=== PATIENT | male | born 1945 | race Caucasian/White ===

== ENCOUNTER → 2019-12-04 16:03 | Outpatient (BNVA) | payer MEDICARE, MEDICAID, SELFPAY | PROVIDERS: Visit Provider Nurse Practitioner | DX: E78.2 Mixed hyperlipidemia (principal); M19.90 Unspecified osteoarthritis, unspecified site; E03.9 Hypothyroidism, unspecified | CPT/HCPCS: 80053; 80061; 84443; 85025 ==

== ENCOUNTER → 2019-12-17 08:09 | Outpatient (BNVA) | payer MEDICARE, MEDICAID, SELFPAY | PROVIDERS: Visit Provider Nurse Practitioner | DX: E03.9 Hypothyroidism, unspecified (principal); R79.89 Other specified abnormal findings of blood chemistry | CPT/HCPCS: 84439; 84481 ==

== ENCOUNTER → 2020-01-31 10:14 | Outpatient (BNVA) | payer MEDICARE, MEDICAID, SELFPAY | PROVIDERS: PCP Nurse Practitioner; Visit Provider Nurse Practitioner | DX: E03.9 Hypothyroidism, unspecified (principal); E78.2 Mixed hyperlipidemia; J44.9 Chronic obstructive pulmonary disease, unspecified | CPT/HCPCS: 80053; 80061; 84439; 84443; 84481 ==

== ENCOUNTER 2020-03-10 14:44 | Outpatient (CLI) | payer MEDICARE, MEDICAID, SELFPAY ==
--- NOTE | 2020-03-10 15:45 | USCV_ITS ---
Matthew Chong Age: 74 Gender: M : 1945 Exam Date: 03/10/2020 15:08 Ordering Phys: Donnell Etienne MD Technologist: Boni Ramirez [place]am [place] [facility] [place]: SOB BP: 143 / 75 HR: 78 Rhythm: Sinus Technical Quality: Adequate MEASUREMENTS (Male / Female) Normal Values 2D ECHO LVOT Diameter 2.1 cm LV Ejection Fraction MOD 2C 57.7 % LV Ejection Fraction 2C AL 60.1 % LA Diameter 3.9 cm LA Width 4.8 cm LA Height 4.4 cm RA Width 3.9 cm RA Height 4.4 cm M-MODE LV Diastolic Diameter MM 4.5 cm 4.2 - 5.9 / 3.9 - 5.3 cm LV Systolic Diameter MM 2.2 cm LV Ejection Fraction MM Teich 82.1 % IVS Diastolic Thickness MM 1.2 cm 0.6 - 1.0 / 0.6 - 0.9 cm IVS Systolic Thickness MM 1.8 cm LVPW Diastolic Thickness MM 1.3 cm 0.6 - 1.0 / 0.6 - 0.9 cm LVPW Systolic Thickness MM 1.8 cm RV Diastolic Diameter MM 1.8 cm Aortic Annulus Diameter 4.3 cm LA Ao Ratio MM 0.9 MV E Point Septal Separation 1.2 cm DOPPLER AV Peak Velocity 126.3 cm/s LVOT Peak Velocity 101.0 cm/s AV Area Cont Eq vti 2.7 cm squared AV Area Cont Eq pk 2.7 cm squared MV Area PHT 5.0 cm squared Mitral E to A Ratio 0.9 MV E' Velocity 49.0 cm/s Mitral E to MV E' Ratio 7.1 Mitral E to LV E' Lateral Ratio 6.9 Mitral E to LV E' Septal Ratio 7.3 TR Peak Velocity 174.3 cm/s TR Peak Gradient 12.2 mmHg TV Peak E Velocity 85.0 cm/s Right Atrial Pressure 3.0 mmHg Pulmonary Artery Systolic Pressu 15.2 mmHg FINDINGS Left Ventricle Normal left ventricular cavity size. Normal left ventricular systolic function. No regional wall motion abnormalities. Left ventricular ejection fraction is estimated at 65 %. Grade I/IV diastolic dysfunction (abnormal relaxation filling pattern), normal to mildly elevated filling pressures. Right Ventricle The right ventricle is normal in size and function. Right Atrium The right atrium is normal in size. Left Atrium The left atrium is normal in size. Mitral Valve Moderately thickened mitral valve. Mild mitral annular calcification. No mitral valve stenosis. Trace mitral valve regurgitation. Aortic Valve Moderate aortic valve calcification. No aortic valve stenosis. Trace aortic valve regurgitation. Tricuspid Valve Structurally normal tricuspid valve without significant stenosis or regurgitation. Pulmonary artery systolic pressure is normal. Pulmonic Valve Structurally normal pulmonic valve without significant stenosis. There is no pulmonic regurgitation. Pericardium Normal pericardium without effusion. Aorta Normal ascending aorta dimension. CONCLUSIONS 1-Normal left ventricular cavity size. Normal left ventricular systolic function. No regional wall motion abnormalities. Left ventricular ejection fraction is estimated at 65 %. Grade I/IV diastolic dysfunction (abnormal relaxation filling pattern), normal to mildly elevated filling pressures. 2-Moderately thickened mitral valve. Mild mitral annular calcification. No mitral valve stenosis. Trace mitral valve regurgitation. 3-Moderate aortic valve calcification. No aortic valve stenosis. Trace aortic valve regurgitation. 4-There is no pericardial effusion. 5-Pulmonary artery systolic pressure is within normal limits. 6-Right atrial pressure is around 5 mm of mercury. 7-There are no prior echocardiogram studies to compare. Fernando Grissom MD (Electronically Signed) Final Date: 10 March 2020 18:46 S
== END 2020-03-10 14:45 | disposition home or self-care (01) ==
PROVIDERS: PCP Nurse Practitioner; Visit Provider Internal Medicine Pulmonary Disease
DX: R06.02 Shortness of breath; I08.0 Rheumatic disorders of both mitral and aortic valves
CPT/HCPCS: 93306

== ENCOUNTER 2020-03-18 08:57 | Outpatient (CLI) | payer MEDICARE, MEDICAID, SELFPAY ==
--- NOTE | 2020-03-18 09:03 | CT_ITS ---
WS: [id number] LDCT LUNG CANCER SCREENING HISTORY: NICOTINE DEPENDENCE, CIGARETTES TECHNIQUE: Axial imaging performed from the apices to 1 cm below the costophrenic angles. Coronal and sagittal reformats are submitted with axial MIP series. All CT scans at [facility] use at least one of these dose optimization techniques: automated exposure control; mA and/or kV adjustment per patient size (includes targeted exams where dose is matched to clinical indication); or iterativ e reconstruction. DLP: 58.94 mGy.cm DIvol: 1.58 mGy COMPARISON: None available. Diagnostic quality: Satisfactory Lung Nodules: No pulmonary nodules or endobronchial lesions. Lungs: Chronic centrilobular and paraseptal emphysema. No pneumonia. Heart: Normal size with no effusion. Other findings: Mild atherosclerosis thoracic aorta. Normal size pulmonary artery. Scattered calcific ations in the coronary arteries. Small hiatal hernia. CT/CT lung screening [id number] IMPRESSION: LUNG-RADS: 1-Negative FOLLOW UP: 12 Month: Continue annual screening with LDCT OTHER FINDINGS (S MODIFIER): None.
== END 2020-03-18 08:58 | disposition home or self-care (01) ==
LOC: RAD 08:58
PROVIDERS: PCP Nurse Practitioner; Visit Provider Internal Medicine Pulmonary Disease
DX: Z12.2 Encounter for screening for malignant neoplasm of respiratory organs (principal); F17.210 Nicotine dependence, cigarettes, uncomplicated
CPT/HCPCS: G0297

== ENCOUNTER 2020-03-31 08:57 | Outpatient (CLI) | payer MEDICARE, MEDICAID, SELFPAY ==
--- NOTE | 2020-03-31 10:42 | PFTS_ITS ---
Date of Study:03/31/20 Date of Dictation: MECHANICS: Forced vital capacity (FVC) is normal. Forced expiratory volume in one second (FEV1) is reduced. FEV1/FVC is reduced. FLOW VOLUME LOOP: Reduced flow at all lung volumes with scooping. LUNG VOLUMES: Total lung capacity (TLC) is normal. Residual volume (RV) is decreased. DIFFUSING CAPACITY FOR CARBON MONOXIDE: Mild reduced. INTERPRETATION: Prebronchodilator spirometry is consistent with moderate obstruction. No postbronchodilator spirometry was performed. Lung volumes are consistent with air trapping. Gas exchange (DLCO) is mildly reduced. MTDD
== END 2020-03-31 08:58 | disposition home or self-care (01) ==
LOC: RT 08:58
PROVIDERS: PCP Nurse Practitioner; Visit Provider Internal Medicine Pulmonary Disease
DX: J44.9 Chronic obstructive pulmonary disease, unspecified (principal); R22.43 Localized swelling, mass and lump, lower limb, bilateral
CPT/HCPCS: 94010; 94618; 94726; 94729

== ENCOUNTER → 2020-05-06 10:32 | Outpatient (BNVA) | payer MEDICARE, MEDICAID, SELFPAY | PROVIDERS: PCP Nurse Practitioner; Visit Provider Nurse Practitioner | DX: I10 Essential (primary) hypertension (principal); J44.9 Chronic obstructive pulmonary disease, unspecified; E03.9 Hypothyroidism, unspecified; E78.2 Mixed hyperlipidemia; I71.4 Abdominal aortic aneurysm, without rupture; M19.90 Unspecified osteoarthritis, unspecified site; N18.9 Chronic kidney disease, unspecified | CPT/HCPCS: 80053; 84443; 85025 ==

== ENCOUNTER 2020-05-12 10:25 | Outpatient (CLI) | payer MEDICARE, MEDICAID, SELFPAY ==
--- NOTE | 2020-05-12 10:38 | XRR_ITS ---
PROCEDURE INFORMATION: Exam: XR Chest, 2 Views Exam date and time: 05/12/2020 10:38 AM Age: 74 years old Clinical indication: Condition or disease; Lung condition and disease; Pneumonia; Additional info: Rule out pneumonia TECHNIQUE: Imaging protocol: XR of the chest Views: 2 views. COMPARISON: CT lung screening [id number] 03/18/2020 9:05 AM FINDINGS: Lungs: Emphysema Lungs are well aerated without a focal area of consolidation. Pleural space: Blunting of the right costophrenic angle. Heart/Mediastinum: Unremarkable. No cardiomegaly. Bones/joints: Unremarkable. XR/XR chest 2V* [id number] IMPRESSION: Lungs are well aerated without a focal area of consolidation.
== END 2020-05-12 10:26 | disposition home or self-care (01) ==
PROVIDERS: PCP Nurse Practitioner; Visit Provider Internal Medicine Pulmonary Disease
DX: J44.9 Chronic obstructive pulmonary disease, unspecified (principal); F17.200 Nicotine dependence, unspecified, uncomplicated; J06.9 Acute upper respiratory infection, unspecified
CPT/HCPCS: 71046

== ENCOUNTER 2020-05-21 08:13 | Outpatient (CLI) | payer MEDICARE, MEDICAID, SELFPAY ==
--- NOTE | 2020-05-21 08:45 | USCV_ITS ---
Matthew Chong Age: 74 Gender: M : 1945 Exam Date: 05/21/2020 08:32 Ordering Phys: Carlos Brito Technologist: Boni Ramirez [place]am [place] [facility] [place]ication: HX AO STENT HISTORY: Diameter (cm) AP x Transverse x Length Velocity (cm/s) Waveform Prox Aorta: x x Mid Aorta: x x Distal Aorta: x x Right Iliac Prox: x x Left Iliac Prox: x x Stent Prox Landing 2.50 x 2.44 x 46.50 Aneurysmal Sac Max 1.37 x 1.49 x 47.30 Lt Lat Sac Dim 1.31 Rt Lat Sac Dim 0.91 Stent Dist Landing 1.71 1.48 x 77.20 x Right Iliac Stent 1.49 x 1.33 x 49.00 Left Iliac Stent 52.30 1.51 x 1.44 x Right Renal Art 105.40 Left Renal Art 85.80 FINDINGS: NORMAL AO STENT Aneurysmal sac measured 4.59 x 4.1 cm The aorta at the proximal stent landing measured 2.5 x 2.44 cm and 1.71 x 1.48 at the distal landing The right iliac stent measured 1.49 x 1.33 and the left 1.51 x 1.44 cm Patent aortic stent graft with no evidence of any flow signal seen in the aneurysm sac Normal Doppler flow velocities in the aorta and renal arteries. CONCLUSIONS 1. Patent aortio-iliac stent graft with no evidence of endoleak, based on the color flow Doppler examination 2. Normal Doppler flow velocities with no evidence of stenosis 3. No significant stenosis in the renal arteries, based on the flow velocities No similar previous studies are available for comparison Dr Joyce Canas MD [facility] (Electronically Signed) Final Date: 21 May 2020 16:16 S
== END 2020-05-21 08:14 | disposition home or self-care (01) ==
LOC: US 08:14
PROVIDERS: PCP Nurse Practitioner; Visit Provider Nurse Practitioner
DX: I71.4 Abdominal aortic aneurysm, without rupture (principal); Z95.828 Presence of other vascular implants and grafts
CPT/HCPCS: 93978

== ENCOUNTER → 2020-07-09 15:03 | Outpatient (BNVA) | payer MEDICARE, MEDICAID, SELFPAY | PROVIDERS: PCP Nurse Practitioner; Visit Provider Nurse Practitioner | DX: N18.9 Chronic kidney disease, unspecified (principal); M19.90 Unspecified osteoarthritis, unspecified site; J44.9 Chronic obstructive pulmonary disease, unspecified; I10 Essential (primary) hypertension; Z79.899 Other long term (current) drug therapy | CPT/HCPCS: 80053; 82306; 82310; 83970; 84443; 85025 ==

== ENCOUNTER 2020-07-30 06:00 | Outpatient (RCR) | payer MEDICARE, MEDICAID, SELFPAY | END 2020-08-21 23:59 | disposition home or self-care (01) | LOC: TPT 06:00 | PROVIDERS: PCP Nurse Practitioner; Referring Provider Internal Medicine Pulmonary Disease; Visit Provider Internal Medicine Pulmonary Disease | DX: J44.9 Chronic obstructive pulmonary disease, unspecified (principal) | CPT/HCPCS: 97110; 97161 ==

== ENCOUNTER → 2020-08-13 13:47 | Outpatient (BNVA) | payer MEDICARE, MEDICAID, SELFPAY | PROVIDERS: PCP Nurse Practitioner; Visit Provider Nurse Practitioner | DX: M25.561 Pain in right knee (principal); M25.562 Pain in left knee; G89.29 Other chronic pain | CPT/HCPCS: 73562 ==

== ENCOUNTER 2020-08-22 06:00 | Outpatient (RCR) | payer MEDICARE, MEDICAID, SELFPAY | END 2020-09-21 23:59 | disposition home or self-care (01) | LOC: TPT 06:00 | PROVIDERS: PCP Nurse Practitioner; Referring Provider Internal Medicine Pulmonary Disease; Visit Provider Internal Medicine Pulmonary Disease | DX: J44.9 Chronic obstructive pulmonary disease, unspecified (principal) | CPT/HCPCS: 97110; 97164 ==

== ENCOUNTER → 2020-08-26 15:15 | Outpatient (BNVA) | payer MEDICARE, MEDICAID, SELFPAY | PROVIDERS: PCP Nurse Practitioner; Visit Provider Internal Medicine Cardiovascular Disease | DX: R06.02 Shortness of breath (principal); I71.4 Abdominal aortic aneurysm, without rupture; R22.43 Localized swelling, mass and lump, lower limb, bilateral; I50.33 Acute on chronic diastolic (congestive) heart failure; I10 Essential (primary) hypertension; Z98.890 Other specified postprocedural states; Z86.79 Personal history of other diseases of the circulatory system; R60.0 Localized edema; E78.2 Mixed hyperlipidemia; N18.4 Chronic kidney disease, stage 4 (severe) | CPT/HCPCS: 80048; 83880 ==

== ENCOUNTER → 2020-09-10 15:08 | Outpatient (BNVA) | payer MEDICARE, MEDICAID, SELFPAY | PROVIDERS: PCP Nurse Practitioner; Visit Provider Nurse Practitioner | DX: M25.561 Pain in right knee (principal); M25.562 Pain in left knee; G89.29 Other chronic pain; E03.9 Hypothyroidism, unspecified; I10 Essential (primary) hypertension; J44.9 Chronic obstructive pulmonary disease, unspecified; R22.43 Localized swelling, mass and lump, lower limb, bilateral; E78.2 Mixed hyperlipidemia | CPT/HCPCS: 80048; 83880 ==

== ENCOUNTER 2020-09-22 06:00 | Outpatient (RCR) | payer MEDICARE, MEDICAID, SELFPAY | END 2020-10-21 23:59 | disposition home or self-care (01) | LOC: TPT 06:00 | PROVIDERS: PCP Nurse Practitioner; Referring Provider Internal Medicine Pulmonary Disease; Visit Provider Internal Medicine Pulmonary Disease | DX: J44.9 Chronic obstructive pulmonary disease, unspecified (principal) | CPT/HCPCS: 97110; 97164 ==

== ENCOUNTER → 2020-09-23 10:01 | Outpatient (BNVA) | payer MEDICARE, MEDICAID, SELFPAY | PROVIDERS: PCP Nurse Practitioner; Visit Provider Obstetrics & Gynecology Gynecology | DX: E78.2 Mixed hyperlipidemia (principal); N18.4 Chronic kidney disease, stage 4 (severe); I10 Essential (primary) hypertension; R22.43 Localized swelling, mass and lump, lower limb, bilateral | CPT/HCPCS: 80048; 83880 ==

== ENCOUNTER 2020-10-12 07:00 | Outpatient (CLI) | payer MEDICARE, MEDICAID, SELFPAY ==
[2020-10-12 07:12] VITALS: BMI 32.1
--- NOTE | 2020-10-12 07:32 | NMCV_ITS ---
NM vanessa perf SPECT r/s* [id number] Matthew Chong Age: 74 Gender: M : 1945 Exam Date: 10/12/2020 08:31 Ordering Phys: Joyce Canas MD ([email or web address]) Technologist: CAMERON Yun Exam Location: [facility] Indications: SHORTNESS OF BREATH STRESS TEST Please see separate stress test report in [facility] for full findings IMAGE PROTOCOL Rest/Stress 1 Lexiscan Day Radiopharmaceutical Dose (mCi) Administration Site Administered by Rest: Tc-99m 10.8 IV CAMERON Abdullahi Sestamibi Stress:Tc-99m 32.3 IV CAMERON Abdullahi Sestamibi Rest: 12-Oct-2020 60 Discovery 630 Stress: 12-Oct-2020 30 Discovery 630 0.4mg Lexiscan. Images obtained in supine and prone position. SPECT RESULTS Technical Quality: Excellent Raw Data Analysis: Normal Image Corrections: No attenuation or motion correction applied Summed Stress Score: 0 Summed Rest Score: 0 Summed Difference Score: 0 PERFUSION FINDINGS Fairly uniform myocardial tracer uptake with no significant perfusion abnormalities FUNCTIONAL RESULTS (calculated via Gated SPECT) Stress Image LV EF (%): 65 Stress EDV (mL):97 TID: 1.2 Stress ESV (mL):34 FUNCTIONAL FINDINGS: Segmental wall motion analysis revealing no gross wall motion normalities. IMPRESSIONS 1. Unremarkable myocardial perfusion imaging 2. LV wall motion analysis revealing no gross wall motion normalities. 3. Normal LV ejection fraction of 65%. 4. Normal LV volume. 5. Elevated transischemic dilatation ratio may suggest endocardial ischemia. But in the absence of any other abnormal objective findings, most likely this is a nonspecific finding. Clinical correlation is recommended Dr Joyce Canas MD [facility] (Electronically Signed) Final Date: 12 October 2020 14:12 S
--- NOTE | 2020-10-12 07:32 | ECG_ITS ---
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 Interpretive Statements NAME OF STUDY: LEXISCAN SESTAMIBI STRESS TEST INDICATION: Shortness of Breath, PROCEDURE: At the baseline, the EKG revealed normal sinus rhythm with a normal ST-T's. The baseline blood pressure was 153/81 mm Hg with a heart rate of 63 beats/min. Lexiscan was infused over a period of 20 seconds. A total of 0.4 milligrams of Lexiscan was infused. The stress phase was continued for a total of 5 minutes. Heart rate at the end of the stress phase was 80 with a blood pressure 151/72. The EKG at the peak infusion revealed no significant changes occasional PACs were noted during the stress. Sestamibi was injected 20 seconds after the Lexiscan infusion. Blood pressure at the end of the recovery phase was 155/77 with a heart rate of 82 per minute. CONCLUSION: 1. No significant EKG changes with the LexiScan infusion 2. No LexiScan induced chest pain or cardiac arrhythmia 3. Normal blood pressure and heart rate response 4. Sestamibi/sestamibi perfusion scan pending; see separate report. Electronically Signed On 10-16-2020 9:58:52 CDT by Joyce Canas M.D. [id number]
[2020-10-12] MEDS: regadenoson 0.4 Mg/5 ml Syringe IVP (09:06)
[2020-10-12 09:10] VITALS: BP 155/77; PULSE 80
== END 2020-10-12 07:01 | disposition home or self-care (01) ==
LOC: CDL 07:01
PROVIDERS: PCP Nurse Practitioner; Visit Provider Internal Medicine Cardiovascular Disease
DX: R06.02 Shortness of breath (principal)
CPT/HCPCS: 78452; 93017; A9500; J2785

== ENCOUNTER → 2020-10-15 13:52 | Outpatient (BNVA) | payer MEDICARE, MEDICAID, SELFPAY | PROVIDERS: PCP Nurse Practitioner; Visit Provider Nurse Practitioner | DX: E78.2 Mixed hyperlipidemia (principal); E03.9 Hypothyroidism, unspecified; J44.9 Chronic obstructive pulmonary disease, unspecified; E55.9 Vitamin D deficiency, unspecified; I10 Essential (primary) hypertension; M19.90 Unspecified osteoarthritis, unspecified site | CPT/HCPCS: 84443 ==

== ENCOUNTER 2020-10-22 06:00 | Outpatient (CLI) | payer MEDICARE, MEDICAID, SELFPAY | END 2020-10-22 06:01 | disposition home or self-care (01) | LOC: LAB 04-14 15:47 | PROVIDERS: PCP Nurse Practitioner; Referring Provider Internal Medicine Pulmonary Disease; Visit Provider Nurse Practitioner | DX: R63.4 Abnormal weight loss (principal) | CPT/HCPCS: 80048 ==

== ENCOUNTER 2020-11-03 12:50 | Outpatient (CLI) | payer MEDICARE, MEDICAID, SELFPAY ==
[2020-11-03] MEDS: iohexol 300 mg/mL 50 mL Btl PO (14:05)
--- NOTE | 2020-11-03 14:30 | CT_ITS ---
WS: [id number] CT CHEST, ABDOMEN AND PELVIS WITHOUT CONTRAST. HISTORY: R63.4 - Abnormal weight loss TECHNIQUE: Contiguous 5 mm axial imaging performed through the chest, abdomen and pelvis without IV c ontrast, oral contrast has been provided. Coronal and sagittal reformats chest. Coronal and sagittal reformats through the abdomen and pelvis. All CT scans at [facility] use at least one of these dose optimization techniques: automated exposure control; mA and/or kV adjustment per patient s ize (includes targeted exams where dose is matched to clinical indication); or iterative reconstructi on. CONTRAST: None DLP: 2318.87 mGy-cm. COMPARISON: None available. Chest CT: Severe centrilobular and paraseptal emphysema. No pulmonary mass or nodule is identified. T here is a new small RIGHT pleural effusion layering posteriorly. New since 03/18/2020 with compressiv e atelectasis. Small mediastinal and hilar lymph nodes. No pericardial effusion. Abdomen CT: Liver, spleen and gallbladder and pancreas are negative. No adrenal mass. Mild RIGHT hydr oureter ureteronephrosis. Mid to distal RIGHT ureter becomes obscured near the pelvic brim secondary to aneurysmal dilatation and stenting of the common iliac artery. No obstruction of the LEFT kidney. Aorta: Patient is status post endovascular stent grafting of a large abdominal aortic aneurysm. Bilat eral iliac artery stents are also present. There is a focal outpouching of the anterior LEFT lateral aorta with no adjacent calcification. No rupture. There is increased soft tissue extending along the RIGHT common iliac and external iliac arteries. 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 No prior studies for comparison to see if this is been stable or change. No GI tract obstruction. No adenopathy or ascites identified. Pelvic CT: No free fluid. Urinary bladder minimally distended. Prostate gland is enlarged. No destructive bone lesions are identified. Mild degenerative changes throughout the thoracic and lum bar spines. CT/CT chest abd pel wo con IMPRESSION: 1. Severe emphysema. 2. New since 03/18/2020 is a small layering RIGHT pleural effusion. No pneumon ia. 3. Prior stent grafting of the abdominal aortic aneurysm with extension of the stent graft into the iliac arteries. 4. 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 No prior studies for comparison to evaluate for any interval change. 5. There is dilatation and increased soft tissue extending along the RIGHT bertram ac artery. Prior rupture or impending rupture of an aneurysm is not excluded. N o prior studies for comparison. These findings may all be stable over alf or new. Recommend follow-up with vascular surgeon. 6. Moderate obstruction of the RIGHT mid ureter at the level of the iliac luis daniel ry stent grafting and increased soft tissue. RIGHT ureter is probably being obs tructed by fibrosis and the increased soft tissue associated with the RIGHT bertram ac artery stent and aneurysm. 7. Evaluation of the aorta and iliac arteries and cause of the RIGHT ureteral obstruction are recommended. Follow-up with vascular surgeon. Evaluation of the RIGHT ureter in comparison to the iliac artery stent graft also needs to be pe rformed. Notified ADAN Newton at 11/03/2020 3:03 PM. Message left on the an [employer] service at 3:06 PM.
== END 2020-11-03 12:51 | disposition home or self-care (01) ==
PROVIDERS: PCP Nurse Practitioner; Visit Provider Nurse Practitioner
DX: R63.4 Abnormal weight loss (principal); J43.9 Emphysema, unspecified; J90 Pleural effusion, not elsewhere classified; I71.4 Abdominal aortic aneurysm, without rupture; N13.5 Crossing vessel and stricture of ureter without hydronephrosis
CPT/HCPCS: 71250; 74176; Q9967

== ENCOUNTER → 2020-11-05 09:15 | Outpatient (BNVA) | payer MEDICARE, MEDICAID, SELFPAY | PROVIDERS: PCP Nurse Practitioner; Visit Provider Registered Nurse | DX: N18.4 Chronic kidney disease, stage 4 (severe) (principal); R80.8 Other proteinuria; R80.0 Isolated proteinuria; I10 Essential (primary) hypertension; Z79.899 Other long term (current) drug therapy | CPT/HCPCS: 80069; 82043; 82310; 82570; 83516; 83883; 83970; 84155; 84156; 84165; 85025 ==

== ENCOUNTER 2020-11-11 15:43 | Emergency (ER) | payer MEDICARE, MEDICAID, SELFPAY ==
[2020-11-11 16:00] VITALS: BP 169/99; PULSE 99; RESP 19; TEMP 37.5; O2SAT 94; BMI 28.8
--- NOTE | 2020-11-11 17:22 | XRR_ITS ---
PROCEDURE INFORMATION: Exam: XR Right Hip Exam date and time: 11/11/2020 5:22 PM Age: 74 years old Clinical indication: Hip pain; Right hip; Prior surgery; Surgery type: Aortic stents; Patient HX: Right groin pain; Additional info: Hip pain, include pelvis TECHNIQUE: Imaging protocol: XR Right hip. Views: 1 view hip with pelvis when performed. COMPARISON: CT chest abd pel wo con 11/03/2020 2:40 PM FINDINGS: Tubes, catheters and devices: Aorto bi-iliac stent graft noted. Bones/joints: Moderate degenerative narrowing and small marginal osteophyte formation at both femoroacetabular joints. No evidence of fracture. DJD of the lower thoracic spine noted. Soft tissues: Unremarkable. XR/XR hip RT 2-3V wo/w pel* [id number] IMPRESSION: No acute osseous abnormalities of the right hip. Moderate DJD of the right hip.
--- NOTE | 2020-11-11 19:36 | W.ED.EXTPRO ---
HPI - Extremity Problem General: Chief complaint: Extremity Problem,Nontraumatic Stated complaint: R. Side Groin/Thigh Sharp Pains Time Seen by Provider: 11/11/20 19:36 History of Present Illness: HPI Narrative: 74-year-old male comes in with right thigh pain. Patient reports pain on and off for the last 2 weeks. Patient has a history of chronic kidney disease and a aortic aneurysm. Patient reports that at times he has numbness in that same area of the leg. Patient appears well. Patient appears chronically ill. Patient appears nontoxic. Patient appears in mild to no pain. Review of Systems General: Reports: 10 or more systems reviewed and unremarkable except in HPI and below Musc: Reports: other (Right thigh pain) PFS ED PFSH: Medical History AAA (abdominal aortic aneurysm) Adult hypothyroidism CKD (chronic kidney disease) COPD (chronic obstructive pulmonary disease) DJD (degenerative joint disease) Hypertension Mixed hyperlipidemia Personal history of nicotine dependence Vitamin D deficiency Surgical History History of appendectomy History of cataract surgery Both eyes History of colonoscopy 2012 History of endovascular stent graft for abdominal aortic aneurysm (AAA) July 2017 Family History Mother Stroke Grandmother Stroke Father Hypertension Other CAD (coronary artery disease) Dementia Diabetes Denies family history of Family history of premature coronary artery disease Social History Smoking and tobacco status: former smoker Quit status (tobacco): has quit using tobacco Year quit tobacco: Apr [id number] Second hand smoke exposure: Yes Smoking risk assessment/counseling performed?: Yes Alcohol intake: never Desire information about alcohol rehabilitation?: No Counseling given: No Desire information about substance/drug rehabilitation?: No Counseling given: No Adopted: No Caregiver/support person: No Lives independently: Yes Household members: spouse Housing: House Marital status: Number of children: 6 service: Yes branch: [employer] Current occupational status: retired Pets and animals: Yes History of recent travel: No Current gender identity: Male Physical Exam Const: COMMON NORMALS: no acute distress and patient oriented x3 GENERAL APPEARANCE: cooperative HENMT: COMMON NORMALS: normocephalic and Normal external nose present HEAD & SCALP: normal to inspection and normocephalic NOSE: Normal external nose present MOUTH: Normal oral and palatal mucosa present THROAT: posterior oropharynx normal Eye: GENERAL EYE: appearance normal, both eyes and all related structures Neck/C-Spine: COMMON NORMALS: full ROM Chest: COMMONS NORMALS: normal inspection of the chest Resp: COMMON NORMALS: normal respiratory effort EFFORT & INSPECTION: Yes able to speak in complete sentences Cardio: COMMON NORMALS: regular rate and regular rhythm RATE: regular rate RHYTHM: regular rhythm GI: COMMON NORMALS: non-tender Back/Pelvis: COMMON NORMALS: thoracic and lumbar spine normal to inspection Extremity: COMMON NORMALS: normal to inspection NARRATIVE EXTREMITY EXAM: Bilateral lower extremity swelling, worse is on the right. Neuro: COMMON NORMALS: patient oriented x3 and moves all extremities Psych: COMMON NORMALS: mental status grossly normal and cooperative Skin: COMMON NORMALS: no rashes or lesions noted GENERAL SKIN EXAM: no rashes or lesions noted Course Vital Signs: Vital signs: Vital Signs Temperature 99.5 F 11/11/20 16:00 Pulse Rate 92 11/11/20 19:38 Respiratory Rate 17 11/11/20 19:38 Blood Pressure 169/99 11/11/20 16:00 Pulse Oximetry 95 11/11/20 19:38 MDM - Extremity (Nontraumatic) MDM Narrative: Medical decision making narrative: Patient comes in today with complaints of right thigh pain. Patient reports pain waxes and wanes. Patient reports pain is been worse for the last 2 weeks. Patient denies any falls or injury. Patient does have chronic edema to lower extremities bilaterally. Differential diagnosis includes degenerative joint disease of the hip, strain or sprain, DVT. X-ray noted some degenerative joint disease of the hip. Ultrasound of the extremity indicated no DVT. I believe that this is probably more musculoskeletal type pain recommended patient try to stay as active as he can and follow-up with primary care for further instruction and evaluation. Patient reported understanding and agreed to plan. Discharge Plan Discharge Patient Disposition: Home Clinical Impression: Leg pain, right DJD (degenerative joint disease) Qualifiers: Osteoarthritis location: hip Osteoarthritis type: unspecified Laterality: right Qualified Code(s): M16.11 - Unilateral primary osteoarthritis, right hip Condition: Stable Prescriptions: No Action aspirin 81 mg tablet,delayed release (DR/EC) 81 mg PO DAILY RF: 0 albuterol sulfate [ProAir HFA] 90 mcg/actuation HFA aerosol inhaler 2 puff INHALATION QID PRN (Reason: shortness of breath or wheezing) Qty: 18 RF: 2 Praluent Pen 75 mg/mL pen injector 75 mg SUBCUT Q14D Qty: 2 RF: 5 ergocalciferol (vitamin D2) 1,250 mcg (50,000 unit) capsule 1,250 mcg PO .weekly Qty: 4 RF: 2 potassium chloride 20 mEq tablet extended release 20 meq PO DAILY Qty: 90 RF: 1 thyroid (pork) [[place] Thyroid] 120 mg tablet 120 mg PO DAILY Qty: 90 RF: 0 thyroid (pork) [[place] Thyroid] 15 mg tablet 15 mg PO DAILY Qty: 90 RF: 0 tramadol 50 mg tablet 50 mg PO Q6H PRN (Reason: pain) Qty: 120 RF: 2 docusate sodium [Colace] 100 mg capsule 100 mg PO DAILY Qty: 30 RF: 2 Trelegy Ellipta 100-62.5-25 mcg blister with device 1 inh inhalation DAILY Qty: 60 RF: 3 torsemide 20 mg tablet 40 mg PO BID Qty: 120 RF: 5 hydralazine 100 mg tablet 100 mg PO TID 30 Days Qty: 270 RF: 2 atorvastatin 80 mg tablet 80 mg PO DAILY Qty: 90 RF: 0 Discharge Orders: Discharge ED (Routine); Ordered 11/11/20 Ordered By: Lex Rahman Referrals: Carlos Brito, SPECTROGRAPHIC ANALYST-C [Primary Care Provider] - Discharge Diet: Usual diet Discharge Activity: Increase activity as tolerated Patient Instructions: Pain Management in the Elderly (ED), Opioid Safety Activity Restrictions/Additional Instructions: Activity as tolerated. Try to maintain normal activity as much as possible. Take your medications as prescribed. Make sure you take your blood pressure medicine as prescribed. Follow-up with primary care for further treatment. Return to the emergency department for new concerns. Coding Level of Care Code ED Bath Solution Maker for Dylan Fwyadi Exam Comprehensive
[2020-11-11 19:38] VITALS: PULSE 92; RESP 17; O2SAT 95
--- NOTE | 2020-11-11 19:43 | USR_ITS ---
PROCEDURE INFORMATION: Exam: US Duplex Right Lower Extremity Veins, Limited Exam date and time: 11/11/2020 7:43 PM Age: 74 years old Clinical indication: Pain; Leg, lower; Right; Additional info: Leg swelling, thigh pain TECHNIQUE: Imaging protocol: Real-time Duplex ultrasound of the Right Lower Extremity with 2-D pepe scale, color Doppler flow and spectral waveform analysis with image documentation. Limited exam was focused on the right lower extremity veins. COMPARISON: CT chest abd pel wo con 11/03/2020 2:40 PM FINDINGS: Right deep veins: Unremarkable. The common femoral, femoral, proximal profunda femoral and popliteal veins are patent without thrombus. Normal Doppler waveforms. Normal compressibility and/or augmentation response. Right superficial veins: Unremarkable. Saphenofemoral junction is patent without thrombus. Soft tissues: Unremarkable. US/[place] [id number] IMPRESSION: No evidence of deep vein thrombosis.
[2020-11-11 21:12] VITALS: PULSE 110; RESP 18; O2SAT 94
== END 2020-11-11 21:10 | disposition home or self-care (01) ==
PROVIDERS: Emergency Provider Nurse Practitioner Family; PCP Nurse Practitioner
DX: M16.11 Unilateral primary osteoarthritis, right hip (principal); E03.9 Hypothyroidism, unspecified; I12.9 Hypertensive chronic kidney disease with stage 1 through stage 4 chronic kidney disease, or unspecified chronic kidney disease; N28.9 Disorder of kidney and ureter, unspecified; J44.9 Chronic obstructive pulmonary disease, unspecified; E78.2 Mixed hyperlipidemia; Z87.891 Personal history of nicotine dependence
CPT/HCPCS: 73502; 93971; 99282

== ENCOUNTER → 2020-11-26 13:59 | Outpatient (BNVA) | payer MEDICARE, MEDICAID, SELFPAY | PROVIDERS: PCP Nurse Practitioner; Visit Provider Internal Medicine Nephrology | DX: N18.4 Chronic kidney disease, stage 4 (severe) (principal) | CPT/HCPCS: 80069; 82043; 82310; 83970; 85025 ==

== ENCOUNTER 2020-11-27 07:17 | Outpatient (CLI) | payer MEDICARE, MEDICAID, SELFPAY ==
--- NOTE | 2020-11-27 07:30 | XRR_ITS ---
PROCEDURE INFORMATION: Exam: XR Abdomen Exam date and time: 11/27/2020 7:30 AM Age: 74 years old Clinical indication: Condition or disease; Kidney or ureter condition; Calculus (stone) in ureter; Prior surgery; Surgery type: Stent; Additional info: Obstruction of right ureter TECHNIQUE: Imaging protocol: XR of the abdomen. Views: Frontal supine view of the abdomen. 1 View. COMPARISON: CT chest abd pel wo con 11/03/2020 2:40 PM FINDINGS: Gastrointestinal tract: Normal. No bowel dilation. Vasculature: Sequela of an aorto bi-iliac stent. Bones/joints: Visualized osseous structures are intact. Moderate multilevel DJD of the lumbar spine. Other findings: No radiographic findings of nephrolithiasis. XR/XR KUB [id number] IMPRESSION: 1. No acute findings. 2. No radiographic evidence of nephrolithiasis. 3. Redemonstrated aorto bi-iliac stent.
== END 2020-11-27 07:18 | disposition home or self-care (01) ==
LOC: RAD 07:20
PROVIDERS: PCP Nurse Practitioner; Visit Provider Urology
DX: N13.5 Crossing vessel and stricture of ureter without hydronephrosis (principal)
CPT/HCPCS: 74018

== ENCOUNTER 2020-11-27 09:30 | Outpatient (CLI) | payer MEDICARE, MEDICAID, SELFPAY ==
[2020-11-27] MEDS: iodixanol 320 mg/mL 100mL Btl IV (10:48)
--- NOTE | 2020-11-27 13:00 | CT_ITS ---
WS: [id number] CTA ABDOMEN PELVIS TECHNIQUE: Noncontrast plus contrast enhanced CTA of the abdomen and pelvis with coronal and sagitta l reformatted images and additional MIP Images. CLINICAL INFORMATION: I71.4 - Abdominal aortic aneurysm, without rupture COMPARISON: Noncontrast CT November 03, 2020 DLP: 2251.[address] scans at [facility] use at least one of these dose optimization techniques: automat ed exposure control; mA and/or kV adjustment per patient size (includes targeted exams where dose is matched to clinical indication); or iterative reconstruction. FINDINGS: Prior postoperative changes aortic endograft with biiliac extension. Ectatic right iliac artery. Triny pheral calcification of the aneurysm with associated excluded aneurysm sac. Disruption of the periphe ral calcification distal abdominal aorta with pseudoaneurysm measuring 3.1 x 3.8 x 4.4 cm AP by trans verse by craniocaudal. No evidence of rupture or focal endoleak in this location. Ectatic right common iliac artery measuring 3.4 cm. Normal caliber left common iliac artery. Tortuous common iliac arteries bilaterally. 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 This is unchanged in appearance since November 03 0. Pseudoaneurysm and endoleak arises at the common iliac artery bifurcation. Lobulated junctional ps eudoaneurysm with endoleak measures approximately 3.3 x 3.5 x 4.1 CM. 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 Internal iliac artery and external iliac artery remain patent. Right common femoral artery is p atent. Moderate right pleural effusion appears slightly increased. Small left pleural effusion. Compressive atelectasis right lower lobe. Moderate right hydronephrosis with pelvocaliectasis and ureterectasis. This appears stable since the November 03, 2020 CT. Ureter appears obstructed by the right lower pelvic aneurysm. Normal left renal parenchymal enha ncement. Slightly delayed right nephrogram. Small bilateral renal cysts. Mild fatty atrophy of the pa ncreas. Normal portal vein and splenic vein. Normal GE junction. Celiac and SMA are patent. Renal art eries are patent. Sigmoid diverticulosis.. Compressive atelectasis right lower lobe. Small left pleural effusion. CT/CT angio abdomen pelvis [id number] IMPRESSION: 1. Moderate right hydronephrosis with right ureterectasis appears stable carly red to November 03, 2020. Right ureter is obstructed by the right lower quadrant an eurysm/pseudoaneurysm. 2. Aortic endograft with biiliac extension and distal abdominal aorta pseudoan eurysm is unchanged described above. 3. 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 4. 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 5. Recommend vascular surgery consult. 6. Moderate right pleural effusion appears slightly increased. Small left pleu ral effusion. 7. Additional nonvascular findings described above.
== END 2020-11-27 09:31 | disposition home or self-care (01) ==
LOC: RADWPI 09:34
PROVIDERS: PCP Nurse Practitioner; Visit Provider Internal Medicine Cardiovascular Disease
DX: I71.4 Abdominal aortic aneurysm, without rupture (principal); N13.30 Unspecified hydronephrosis; N13.4 Hydroureter; I72.8 Aneurysm of other specified arteries; I72.3 Aneurysm of iliac artery; J90 Pleural effusion, not elsewhere classified
CPT/HCPCS: 74174; 81003; Q9967

== ENCOUNTER → 2020-11-30 11:03 | Outpatient (BNVA) | payer MEDICARE, MEDICAID, SELFPAY | PROVIDERS: PCP Nurse Practitioner; Visit Provider Internal Medicine Nephrology | DX: N18.4 Chronic kidney disease, stage 4 (severe) (principal) | CPT/HCPCS: 80069 ==

== ENCOUNTER → 2020-12-09 09:07 | Outpatient (BNVA) | payer MEDICARE, MEDICAID, SELFPAY | PROVIDERS: PCP Nurse Practitioner; Visit Provider Nurse Practitioner | DX: M47.896 Other spondylosis, lumbar region (principal); M54.5 Low back pain | CPT/HCPCS: 72100 ==

== ENCOUNTER → 2020-12-23 09:40 | Outpatient (BNVA) | payer MEDICARE, MEDICAID, SELFPAY | PROVIDERS: PCP Nurse Practitioner; Visit Provider Internal Medicine Nephrology | DX: N18.4 Chronic kidney disease, stage 4 (severe) (principal); Z79.899 Other long term (current) drug therapy | CPT/HCPCS: 80069; 85025 ==

== ENCOUNTER → 2020-12-31 12:59 | Outpatient (BNVA) | payer MEDICARE, MEDICAID, SELFPAY | PROVIDERS: PCP Nurse Practitioner; Visit Provider Urology | DX: N13.5 Crossing vessel and stricture of ureter without hydronephrosis (principal) | CPT/HCPCS: 81003 ==

== ENCOUNTER → 2021-01-06 10:07 | Outpatient (BNVA) | payer MEDICARE, MEDICAID, SELFPAY | PROVIDERS: PCP Nurse Practitioner; Visit Provider Nurse Practitioner | DX: N18.4 Chronic kidney disease, stage 4 (severe) (principal); R06.02 Shortness of breath; J90 Pleural effusion, not elsewhere classified | CPT/HCPCS: 71046; 80048; 85025; 87635 ==

== ENCOUNTER → 2021-01-08 09:31 | Outpatient (BNVA) | payer MEDICARE, MEDICAID, SELFPAY | PROVIDERS: PCP Nurse Practitioner; Visit Provider Nurse Practitioner | DX: Z20.822 Contact with and (suspected) exposure to COVID-19 (principal) | CPT/HCPCS: 87635 ==

== ENCOUNTER 2021-01-11 13:35 | Emergency (ER) | payer MEDICARE, MEDICAID, SELFPAY ==
[2021-01-11] VITALS (8 sets, daily range): BP systolic 116; BP diastolic 72; PULSE 86–109; RESP 18–24; O2SAT 90–96; BMI 26.6
--- NOTE | 2021-01-11 13:41 | XRR_ITS ---
PROCEDURE INFORMATION: Exam: XR Chest Exam date and time: 01/11/2021 1:41 PM Age: 75 years old Clinical indication: Shortness of breath; Patient HX: History--covid positive/low o2 (79%)/trouble breathing; Additional info: Cough TECHNIQUE: Imaging protocol: XR of the chest. Views: 1 view. COMPARISON: 1. CR XR chest 2V* [id number] 01/06/2021 10:[address] CHEST 11/03/2020 2:40:23 PM FINDINGS: Lungs: There is bilateral centrilobular and paraseptal emphysema. There is bibasilar airspace disease, which could be due to pneumonia, dependent pulmonary edema, or aspiration pneumonitis, though the history would suggest pneumonia. The airspace disease has worsened since the prior comparison radiographs. Pleural spaces: No pleural effusion or pneumothorax. Heart/Mediastinum: The cardiac silhouette is not enlarged. The mediastinal contours are normal. Bones/joints: Bilateral glenohumeral joint osteoarthritis. XR/XR chest 1V portable [id number] IMPRESSION: 1. Worsening bibasilar airspace disease. 2. Underlying bilateral emphysema.
--- NOTE | 2021-01-11 13:42 | ECG_ITS ---
[facility] Test Date: 2021-01-11 Pat Name: Matthew Chong Department: Room: Gender: Male Supervisor Adult Education: : 1945 Requested By: David Hahn Order Number: [id number] Reading MD: Measurements Intervals [place] Rate: 119 P: 54 [place]: 138 QRS: 3 QRSD: 99 T: 36 QT: 319 QTc: 450 Interpretive Statements SINUS TACHYCARDIA WITH FREQUENT SUPRAVENTRICULAR PREMATURE COMPLEXES ABNORMAL RHYTHM ECG No previous ECG available for comparison [id number]
--- NOTE | 2021-01-11 13:43 | W.ED.SOB ---
HPI - SOB/Dyspnea General: Chief Complaint: COVID symptoms Stated Complaint: 79% O2/COVID + Time Seen by Provider: 01/11/21 13:38 History of Present Illness: HPI Narrative: This patient is a 75-year-old male who presents to the emergency department from the outpatient Covid infusion center. Patient reportedly was checking into have an outpatient infusion for his COVID-19 infection that was diagnosed last week. Patient had a pulse ox done it showed it was in the 70s. Patient has a history of COPD and was significantly short of breath. Patient otherwise has no complaints of Covid. Other than the shortness of breath but he states that he has that chronically due to his COPD. Patient denies fever denies any significant cough. Pulse ox on nonrebreather mask is up to 90%. Will do medical evaluation treat as needed MD elicited complaint: shortness of breath Pertinent past history: COPD and other Onset (ago): minute(s) Context: recent illness Timing: constant Severity: moderate Exacerbating factors: exertion Relieving factors: oxygen Known history of: COPD and congestive heart failure Associated symptoms: Deny abdominal pain, chest pain, extremity pain, fever(s), lightheadedness, nausea, palpitations or vomiting Review of Systems General: Reports: 10 or more systems reviewed and unremarkable except in HPI and below Const: Denies: fever(s), chills, body aches or fatigue Eyes: Denies: change in vision or blurry vision ENMT: Denies: throat pain, hoarseness or mouth pain Card: Denies: chest pain, palpitations, irregular heart rhythm, edema, swelling of feet/ankles or lightheadedness Resp: Reports: dyspnea; Denies: productive cough, non-productive cough, wheezing or pain on inspiration GI: Denies: abdominal pain, nausea or vomiting : Denies: flank pain, dysuria, urinary frequency, urinary urgency or urinary hesitancy Musc: Denies: neck pain, back pain, extremity pain, extremity swelling, joint pain, joint swelling, joint redness, joint warmth or limited range of motion Skin/Breast: Denies: rash, pruritus, erythema or skin tenderness Neuro: Denies: headache(s), numbness in extremities or weakness in extremities Psych: Denies: anxiety or depression PFSH ED PFSH: Medical History AAA (abdominal aortic aneurysm) Adult hypothyroidism CKD (chronic kidney disease) COPD (chronic obstructive pulmonary disease) DJD (degenerative joint disease) Extrinsic ureteral obstruction Hydronephrosis, right Hypertension Mixed hyperlipidemia Personal history of nicotine dependence Vitamin D deficiency Surgical History History of appendectomy History of cataract surgery Both eyes History of colonoscopy 2012 History of endovascular stent graft for abdominal aortic aneurysm (AAA) July 2017 Family History Mother , AT AGE 71 Stroke Grandmother Stroke Father , AT AGE 76 Hypertension Stroke Other CAD (coronary artery disease) Dementia Diabetes Social History Smoking and tobacco status: former smoker Quit status (tobacco): has quit using tobacco Year quit tobacco: 2020 Former quit date comment: [id number] Second hand smoke exposure: Yes Smoking risk assessment/counseling performed?: No Alcohol intake: never Desire information about alcohol rehabilitation?: No Counseling given: No Desire information about substance/drug rehabilitation?: No Counseling given: No Adopted: No Caregiver/support person: No Lives independently: Yes Household members: spouse Housing: House Marital status: service: Yes branch: [employer] Current occupational status: retired Current occupational exposures/hazards: No History of recent travel: No Current gender identity: Male Physical Exam Const: COMMON NORMALS: no acute distress, average body habitus, patient oriented x3, no limitations, healthy appearing, alert and well nourished HENMT: COMMON NORMALS: normocephalic, atraumatic, hearing grossly normal bilaterally, external ears normal, EAC's normal, TM's normal bilaterally, Normal external nose present, Normal nasal mucous membranes and turbinates present, moist oral mucous membranes, oropharynx normal, dentition normal and gingiva normal HEAD & SCALP: normocephalic and atraumatic NOSE: Normal external nose present and Normal nasal mucous membranes and turbinates present EXTERNAL EAR: Yes external ears normal EXTERNAL AUDITORY CANAL: EAC's normal TYMPANIC MEMBRANE: TM's normal bilaterally Neck/C-Spine: COMMON NORMALS: full ROM, no lymphadenopathy, supple, no meningeal signs, no JVD, Thyroid normal and No carotid bruits THYROID: Thyroid normal Chest: COMMONS NORMALS: normal inspection of the chest, normal palpation of entire chest wall, normal inspection of the breasts and normal palpation of the breasts Breast/axilla inspection: Yes normal inspection of the breasts BREAST/AXILLA PALPATION: Yes normal palpation of the breasts Resp: COMMON NORMALS: No retractions, No use of accessory muscles, clear to auscultation bilaterally and percussion normal EFFORT & INSPECTION: Yes tachypneic AUSCULTATION: clear to auscultation bilaterally and diminished lung sounds PERCUSSION: percussion normal Cardio: COMMON NORMALS: no JVD, regular rate, regular rhythm, S1 normal heart sound present, S2 normal heart sound present, No gallops present (Cardio), No clicks present (Cardio), No murmurs present (Cardio), No rub (Cardio) and Peripheral pulses 2+ throughout RATE: regular rate RHYTHM: regular rhythm HEART SOUNDS: S1 normal heart sound present and S2 normal heart sound present PERIPHERAL PULSES: Peripheral pulses 2+ throughout GI: COMMON NORMALS: Normal to inspection, nondistended, normoactive bowel sounds present, Soft to palpation, non-tender, No hepatosplenomegaly present, no masses and no bruits PALPATION: Yes Soft to palpation and Yes No hepatosplenomegaly present : COMMON NORMALS: Yes no CVA tenderness BLADDER/KIDNEY EXAM: Yes no CVA tenderness Back/Pelvis: COMMON NORMALS: no CVA tenderness, thoracic and lumbar spine normal to inspection, no thoracic nor lumbar tenderness, thoraco-lumbar ROM normal and straight leg raise negative bilaterally Extremity: COMMON NORMALS: normal to inspection, full ROM, capillary refill normal, no joint enlargement, no clubbing, cyanosis or edema, no calf tenderness and no pedal edema Neuro: COMMON NORMALS: patient oriented x3 SENSORIUM/ORIENTATION: Yes alert MENINGEAL SIGNS: Yes no meningeal signs Course Reevaluation(s): Reevaluation #1: Patient is much improved on high flow nasal cannula O2 sats of 96%. Patient states he is feeling much improved. Patient is agreeable to admission to the hospital Time: 16:06 Consultations: Consultation #1: Patient will be admitted to Dr. De Jesus. He will see patient for additional orders. Time: 16:06 Vital Signs: Vital signs: Vital Signs Pulse Rate 90 09/20/21 16:20 Respiratory Rate 18 01/11/21 16:20 Pulse Oximetry 96 01/11/21 16:20 MDM - SOB/Dyspnea MDM Narrative: Medical decision making narrative: This patient is a 75-year-old male who presents to the emergency department from the outpatient [facility] infusion center. Patient reportedly was checking into have an outpatient infusion for his COVID-19 infection that was diagnosed last week. Patient had a pulse ox done it showed it was in the 70s. Patient has a history of COPD and was significantly short of breath. Patient otherwise has no complaints of Covid. Other than the shortness of breath but he states that he has that chronically due to his COPD. Patient denies fever denies any significant cough. Pulse ox on nonrebreather mask is up to 90%. Will do medical evaluation treat as needed Patient is much improved on high flow nasal cannula O2 sats of 96%. Patient states he is feeling much improved. Patient is agreeable to admission to the hospital Patient will be admitted to Dr. De Jesus. He will see patient for additional orders. Lab Data: Labs: Lab Results 01/11/21 01/11/21 01/11/21 14:26 14:26 14:26 WBC 8.7 10^3/uL 10^3/ uL (4.0-10.0) RBC 3.49 10^6/uL L 10 ^6/uL (4.1-5.3) Hgb 10.3 g/dL L g/dL (11.7-16.6) Hct 31.8 % L % (42.0-52.0) MCV 91.1 fl fl (80-94) MCH 29.5 pg pg (28.0-34.0) MCHC 32.4 g/dL g/dL (30.0-36.0) RDW 16.2 % H % (12.1-15.1) Plt Count 236 10^3/cmm 10^3 /cmm (130-400) MPV 9.6 fL fL (7.4-10.4) Neut % (Auto) 93.6 % % Lymph % (Auto) 2.5 % % Kerr % (Auto) 3.0 % % Eos % (Auto) 0.0 % % Baso % (Auto) 0.0 % % Neut # (Auto) 8.18 10^3/uL H 10 ^3/uL (1.8-7.7) Lymph # (Auto) 0.2 10^3/uL L 10^ 3/uL (0.8-4.8) Kerr # (Auto) 0.3 10^3/uL 10^3/ uL (0.2-0.9) Eos # (Auto) 0.0 10^3/uL 10^3/ uL (0.0-0.8) Baso # (Auto) 0.0 10^3/uL 10^3/ uL (0.0-0.1) Nucleated RBC % (a uto) 0 % % Nucleated RBCs # 0.0 /100WBC /100W BC PT 12.40 SECONDS SEC ONDS (12.1-14.9) INR 0.89 (0.8-1.2) APTT 39.6 SECONDS H SE CONDS (23.9-36.7) D-Dimer 5.31 ug/mIFEU H u g/mIFEU (0-0.59) Specimen Type Sample Site ABG pH ABG pCO2 ABG pO2 ABG HCO3 ABG O2 Saturation ABG Base Excess Artemio Test A-a O2 Gradient Hematocrit Hgb O2 Saturation Carboxyhemoglobin Methemoglobin Total Hemoglobin Ionized Calcium O2 Delivery Device O2 Liters/Min FiO2 Escalator Installer ID Sodium 135 mmol/L L mmol /L (136-145) Potassium 3.6 mmol/L mmol/L (3.5-5.1) Chloride 94 mmol/L L mmol/ L (98-107) Carbon Dioxide 28 mmol/L mmol/L (22-29) Anion Gap 16.6 (5-19) BUN 48 mg/dL H mg/dL (8-23) Creatinine 3.0 mg/dL H mg/dL (0.7-1.2) GFR Calculation Not Reportable Glucose 102 mg/dL mg/dL (65-115) Calculated Osmolal ity 293 mOsm/kg mOsm/ kg (285-295) Lactic Acid Calcium 8.8 mg/dL mg/dL (8.5-10.5) Total Bilirubin 0.2 mg/dL mg/dL (0.15-1.2) AST 60 U/L H U/L (0-40) ALT 50 U/L H U/L (0-41) Alkaline Phosphata se 180 IU/L H IU/L (40-130) Troponin T Baselin e NT-Pro-B Natriuret Pep 2609 pg/mL H pg/m L (0-450) Total Protein 5.2 g/dL L g/dL (6.6-8.7) Albumin 2.2 g/dL L g/dL (3.5-5.2) Globulin 3.0 g/dL g/dL (1.3-4.6) 01/11/21 01/11/21 01/11/21 14:26 14:26 14:45 WBC RBC Hgb Hct MCV MCH MCHC RDW Plt Count MPV Neut % (Auto) Lymph % (Auto) Kerr % (Auto) Eos % (Auto) Baso % (Auto) Neut # (Auto) Lymph # (Auto) Kerr # (Auto) Eos # (Auto) Baso # (Auto) Nucleated RBC % (a uto) Nucleated RBCs # PT INR APTT D-Dimer Specimen Type Arterial Sample Site Radial, left ABG pH 7.57 H* (7.35-7.45) ABG pCO2 29.5 mmHg L mmHg (35-45) ABG pO2 56.2 mmHg L mmHg (80.0-100.0) ABG HCO3 27.0 mmol/L H mmo l/L (22-26) ABG O2 Saturation 91.7 ABG Base Excess 5.5 mmol/L H mmol /L (-2.0-2.0) Artemio Test Pos A-a O2 Gradient 43.1 mmHg H mmHg (5-10) Hematocrit 42.4 % % (42-52) Hgb O2 Saturation 90.0 % L % (95-100) Carboxyhemoglobin 1.1 %THgb %THgb (0.4-20.1) Methemoglobin 0.7 % % (0.4-1.5) Total Hemoglobin 13.8 g/dL L g/dL (14-18) Ionized Calcium 1.2 mmol/L mmol/L (1.1-1.4) O2 Delivery Device Hag O2 Liters/Min 30.0 % % FiO2 60.0 % % Escalator Installer ID glc Sodium 134.0 mmol/L mmol /L (131-143) Potassium 3.1 mmol/L L mmol /L (3.5-5.0) Chloride Carbon Dioxide Anion Gap BUN Creatinine GFR Calculation Glucose 123.0 mg/dL H mg/ dL (70-115) Calculated Osmolal ity Lactic Acid 2.9 mmol/L H mmol /L (0.5-2.2) Calcium Total Bilirubin AST ALT Alkaline Phosphata se Troponin T Baselin e 55 ng/L H ng/L (0-15) NT-Pro-B Natriuret Pep Total Protein Albumin Globulin Imaging Data^: CXR: Attestation: I personally reviewed and interpreted this imaging study as follows: Radiologist's impression: IMPRESSION: 1. Worsening bibasilar airspace disease. 2. Underlying bilateral emphysema. EKG Data^: EKG 1: Attestation: I personally reviewed and interpreted this EKG as follows: EKG Interpretation Date: 01/11/21 EKG interpretation time: 14:26 Prior EKG tracings: not available for review Interpretation: Sinus tachycardia with occasional PVC. Heart rate 119. EKG 2: Attestation: I personally reviewed and interpreted this EKG as follows: EKG Interpretation Date: 01/11/21 EKG interpretation time: 16:10 Prior EKG tracings: available for review Interpretation: Sinus rhythm heart rate 94. Discharge Plan Discharge Patient Disposition: Admitted As Inpatient Clinical Impression: Suspected severe acute respiratory syndrome coronavirus 2 (SARS-CoV-2) infection, COPD (chronic obstructive pulmonary disease), CKD (chronic kidney disease) Condition: Stable Coding Level of Care Code ED Mold Filler for g Fwd Exam Comprehensive
[2021-01-11] MEDS: ipratropium-albuterol 3 mL Neb INHALATION (14:09)
[2021-01-11] MEDS: dexamethasone 10 mg/mL INJ IV (14:18)
[2021-01-11 14:54] LABS: Hematocrit 31.8 % (42.0-52.0); Hemoglobin 10.3 g/dL (11.7-16.6); Lymphocytes # 0.2 10^3/uL (0.8-4.8); Lymphocytes % 2.5 %; Mean Corpuscular HGB Conc 32.4 g/dL (30.0-36.0); Mean Corpuscular Hemoglobin 29.5 pg (28.0-34.0); Mean Corpuscular Volume 91.1 fl (80-94); Mean Platelet Volume 9.6 fL (7.4-10.4); Monocytes # 0.3 10^3/uL (0.2-0.9); Neutrophils # 8.18 10^3/uL (1.8-7.7); Neutrophils % 93.6 %; Nucleated Red Blood Cells % 0 %; Platelet Count 236 10^3/cmm (130-400); Red Blood Count 3.49 10^6/uL (4.1-5.3); Red Cell Distribution Width 16.2 % (12.1-15.1); White Blood Count 8.7 10^3/uL (4.0-10.0)
[2021-01-11 15:02] LABS: ABG PCO2 29.5 mmHg (35-45); Alveolar-Arterial Oxygen Gradi 43.1 mmHg (5-10); Arterial Blood Gas Hematocrit 42.4 % (42-52); Base Excess ABG 5.5 mmol/L (-2.0-2.0); Blood Gas Allen Test Pos; Blood Gas Operator Identificat glc; Blood Gas Sample Site Radial, left; Blood Gas Sample Type Arterial; Carboxyhemoglobin 1.1 %THgb (0.4-20.1); Ionized Calcium Level - ABG 1.2 mmol/L (1.1-1.4); Methemoglobin 0.7 % (0.4-1.5); Oxygen Device HAG; Oxygen Saturation ABG 91.7; PO2 ABG 56.2 mmHg (80.0-100.0); Potassium Level - ABG 3.1 mmol/L (3.5-5.0); Total Hemoglobin 13.8 g/dL (14-18)
[2021-01-11 15:03] LABS: ABG PH Result 7.57 (7.35-7.45)
[2021-01-11 15:10] LABS: INR 0.89 (0.8-1.2)
[2021-01-11 15:11] LABS: Partial Thromboplastin Time 39.6 SECONDS (23.9-36.7)
[2021-01-11 15:16] LABS: Lactic Sepsis W/Reflex 2.9 mmol/L (0.5-2.2)
[2021-01-11 15:17] LABS: Troponin(5th) Baseline 55 ng/L (0-15)
[2021-01-11 15:21] LABS: D Dimer 5.31 ug/mIFEU (0-0.59)
[2021-01-11 15:26] LABS: Alanine Aminotransferase 50 U/L (0-41); Albumin Level 2.2 g/dL (3.5-5.2); Alkaline Phosphatase 180 IU/L (40-130); Anion Gap 16.6 (5-19); Aspartate Amino Transferase 60 U/L (0-40); Blood Urea Nitrogen 48 mg/dL (8-23); Calcium 8.8 mg/dL (8.5-10.5); Carbon Dioxide 28 mmol/L (22-29); Chloride 94 mmol/L (98-107); Glucose 102 mg/dL (65-115); NT Pro B Type Natriuretic Pept 2609 pg/mL (0-450); Osmolality Calculated 293 mOsm/kg (285-295); Potassium 3.6 mmol/L (3.5-5.1); Sodium 135 mmol/L (136-145); Total Bilirubin 0.2 mg/dL (0.15-1.2); Total Protein 5.2 g/dL (6.6-8.7)
--- NOTE | 2021-01-11 15:42 | ECG_ITS ---
[facility] Test Date: 2021-01-11 Pat Name: Matthew Chong Department: Room: Gender: Male Director Marketing Communications: : 1945 Requested By: David Hahn Order Number: [id number] Surya MD: Joyce Canas M.D. Measurements Intervals [place] Rate: 94 P: 66 [place]: 146 QRS: -7 QRSD: 109 T: 51 QT: 338 QTc: 423 Interpretive Statements SINUS RHYTHM WITH OCCASIONAL SUPRAVENTRICULAR PREMATURE COMPLEXES Compared to ECG 01/11/2021 14:26:02 Sinus tachycardia no longer present Electronically Signed On 01-13-2021 23:36:38 CDT by Joyce Canas M.D. [id number]
[2021-01-11 16:38] LABS: Reflex Lactate Order REFLEX LACTIC ORDERD
--- NOTE | 2021-01-11 16:44 | W.ED.COVID ---
HPI - COVID General: Chief Complaint: COVID symptoms Stated Complaint: 79% O2/COVID + Time Seen by Provider: 01/11/21 13:38 Triage information: Has fever, cough or shortness of breath. No known COVID + exposure last 14 days COVID Results: SARS-CoV-2 RNA (RT-PCR) Detected (NOT DETECTED) A 01/08/21 09:31 01/08/21 [facility] PFSH: Medical History AAA (abdominal aortic aneurysm) Adult hypothyroidism CKD (chronic kidney disease) COPD (chronic obstructive pulmonary disease) DJD (degenerative joint disease) Extrinsic ureteral obstruction Hydronephrosis, right Hypertension Mixed hyperlipidemia Personal history of nicotine dependence Vitamin D deficiency Surgical History History of appendectomy History of cataract surgery Both eyes History of colonoscopy 2012 History of endovascular stent graft for abdominal aortic aneurysm (AAA) July 2017 Family History Mother , AT AGE 71 Stroke Grandmother Stroke Father , AT AGE 76 Hypertension Stroke Other CAD (coronary artery disease) Dementia Diabetes Social History Smoking and tobacco status: former smoker Quit status (tobacco): has quit using tobacco Year quit tobacco: 2020 Former quit date comment: [id number] Second hand smoke exposure: Yes Smoking risk assessment/counseling performed?: No Alcohol intake: never Desire information about alcohol rehabilitation?: No Counseling given: No Desire information about substance/drug rehabilitation?: No Counseling given: No Adopted: No Caregiver/support person: No Lives independently: Yes Household members: spouse Housing: House Marital status: service: Yes branch: [employer] Current occupational status: retired Current occupational exposures/hazards: No History of recent travel: No Current gender identity: Male Course Vital Signs: Vital signs: Vital Signs Pulse Rate 90 01/11/21 16:20 Respiratory Rate 18 01/11/21 16:20 Pulse Oximetry 96 01/11/21 16:20 MDM - COVID Lab Data: Labs: Lab Results 01/11/21 01/11/21 01/11/21 14:26 14:26 14:26 WBC 8.7 10^3/uL 10^3/ uL (4.0-10.0) RBC 3.49 10^6/uL L 10 ^6/uL (4.1-5.3) Hgb 10.3 g/dL L g/dL (11.7-16.6) Hct 31.8 % L % (42.0-52.0) MCV 91.1 fl fl (80-94) MCH 29.5 pg pg (28.0-34.0) MCHC 32.4 g/dL g/dL (30.0-36.0) RDW 16.2 % H % (12.1-15.1) Plt Count 236 10^3/cmm 10^3 /cmm (130-400) MPV 9.6 fL fL (7.4-10.4) Neut % (Auto) 93.6 % % Lymph % (Auto) 2.5 % % Phillips % (Auto) 3.0 % % Eos % (Auto) 0.0 % % Baso % (Auto) 0.0 % % Neut # (Auto) 8.18 10^3/uL H 10 ^3/uL (1.8-7.7) Lymph # (Auto) 0.2 10^3/uL L 10^ 3/uL (0.8-4.8) Phillips # (Auto) 0.3 10^3/uL 10^3/ uL (0.2-0.9) Eos # (Auto) 0.0 10^3/uL 10^3/ uL (0.0-0.8) Baso # (Auto) 0.0 10^3/uL 10^3/ uL (0.0-0.1) Nucleated RBC % (a uto) 0 % % Nucleated RBCs # 0.0 /100WBC /100W BC PT 12.40 SECONDS SEC ONDS (12.1-14.9) INR 0.89 (0.8-1.2) APTT 39.6 SECONDS H SE CONDS (23.9-36.7) D-Dimer 5.31 ug/mIFEU H u g/mIFEU (0-0.59) Specimen Type Sample Site ABG pH ABG pCO2 ABG pO2 ABG HCO3 ABG O2 Saturation ABG Base Excess Artemio Test A-a O2 Gradient Hematocrit Hgb O2 Saturation Carboxyhemoglobin Methemoglobin Total Hemoglobin Ionized Calcium O2 Delivery Device O2 Liters/Min FiO2 Dike Supervisor ID Sodium 135 mmol/L L mmol /L (136-145) Potassium 3.6 mmol/L mmol/L (3.5-5.1) Chloride 94 mmol/L L mmol/ L (98-107) Carbon Dioxide 28 mmol/L mmol/L (22-29) Anion Gap 16.6 (5-19) BUN 48 mg/dL H mg/dL (8-23) Creatinine 3.0 mg/dL H mg/dL (0.7-1.2) GFR Calculation Not Reportable Glucose 102 mg/dL mg/dL (65-115) Calculated Osmolal ity 293 mOsm/kg mOsm/ kg (285-295) Lactic Acid Calcium 8.8 mg/dL mg/dL (8.5-10.5) Total Bilirubin 0.2 mg/dL mg/dL (0.15-1.2) AST 60 U/L H U/L (0-40) ALT 50 U/L H U/L (0-41) Alkaline Phosphata se 180 IU/L H IU/L (40-130) Troponin T Baselin e NT-Pro-B Natriuret Pep 2609 pg/mL H pg/m L (0-450) Total Protein 5.2 g/dL L g/dL (6.6-8.7) Albumin 2.2 g/dL L g/dL (3.5-5.2) Globulin 3.0 g/dL g/dL (1.3-4.6) 01/11/21 01/11/21 01/11/21 14:26 14:26 14:45 WBC RBC Hgb Hct MCV MCH MCHC RDW Plt Count MPV Neut % (Auto) Lymph % (Auto) Phillips % (Auto) Eos % (Auto) Baso % (Auto) Neut # (Auto) Lymph # (Auto) Phillips # (Auto) Eos # (Auto) Baso # (Auto) Nucleated RBC % (a uto) Nucleated RBCs # PT INR APTT D-Dimer Specimen Type Arterial Sample Site Radial, left ABG pH 7.57 H* (7.35-7.45) ABG pCO2 29.5 mmHg L mmHg (35-45) ABG pO2 56.2 mmHg L mmHg (80.0-100.0) ABG HCO3 27.0 mmol/L H mmo l/L (22-26) ABG O2 Saturation 91.7 ABG Base Excess 5.5 mmol/L H mmol /L (-2.0-2.0) Artemio Test Pos A-a O2 Gradient 43.1 mmHg H mmHg (5-10) Hematocrit 42.4 % % (42-52) Hgb O2 Saturation 90.0 % L % (95-100) Carboxyhemoglobin 1.1 %THgb %THgb (0.4-20.1) Methemoglobin 0.7 % % (0.4-1.5) Total Hemoglobin 13.8 g/dL L g/dL (14-18) Ionized Calcium 1.2 mmol/L mmol/L (1.1-1.4) O2 Delivery Device Hag O2 Liters/Min 30.0 % % FiO2 60.0 % % Dike Supervisor ID glc Sodium 134.0 mmol/L mmol /L (131-143) Potassium 3.1 mmol/L L mmol /L (3.5-5.0) Chloride Carbon Dioxide Anion Gap BUN Creatinine GFR Calculation Glucose 123.0 mg/dL H mg/ dL (70-115) Calculated Osmolal ity Lactic Acid 2.9 mmol/L H mmol /L (0.5-2.2) Calcium Total Bilirubin AST ALT Alkaline Phosphata se Troponin T Baselin e 55 ng/L H ng/L (0-15) NT-Pro-B Natriuret Pep Total Protein Albumin Globulin COVID Results: SARS-CoV-2 RNA (RT-PCR) Detected (NOT DETECTED) A 01/08/21 09:31 01/08/21 Discharge Plan Discharge Patient Disposition: Admitted As Inpatient Clinical Impression: Suspected severe acute respiratory syndrome coronavirus 2 (SARS-CoV-2) infection, COPD (chronic obstructive pulmonary disease), CKD (chronic kidney disease) Condition: Stable Coding Level of Care Code ED Senior Market Intelligence Consultant for Dylan Aguilar
[2021-01-11] MEDS: enoxaparin 80 mg/0.8 mL Syringe 70 MG SUBCUT (17:40)
[2021-01-11] MEDS: remdesivir 200 MG in sodium chloride 0.9% (100 ml) 100 ML 100 MG IV (17:40)
[2021-01-11 20:45] LABS: Troponin 5 6HR 44.84 ng/L (0-15)
[2021-01-11 20:46] LABS: Troponin 5 6HR Delta -10.16 ng/L (0-12)
[2021-01-11 23:11] LABS: Add Urine Culture? No; Add Urine Microscopic? YES; Amorphous Sediment Urine 2+ /hpf; Bacteria Urine TRACE /hpf; Bilirubin Urine Neg (Negative); Blood Urine 2+ (Negative); Glucose Urine UA 2+ (Normal); Hyaline Casts Urine 0-4 /lpf; Ketones Urine Negative (Negative); Leukocyte Esterase Urine Negative (Negative); Nitrate Urine Negative (Negative); Protein Urine 3+ (Negative); RBC Urine 0-4 /hpf (0-2); Specific Gravity, Urine 1.015 (1.005-1.030); Squamous Epithelial Cell Urine 0-4 /hpf (0-5); Urine Appearance Clear (CLEAR); Urine Color Yellow (Yellow); Urobilinogen Urine Norm (Negative); pH Urine 5 (5-7)
--- NOTE | 2021-01-11 23:29 | P.CONIM_ITS ---
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 Ahumada after getting renal bx for worsening CKD. He developed worsening dyspnea, cough over the past week, tested + for COVID on 01/06. Presented for Mab infusion today however redirected to ER when 02 sat noted to be 79% on RA. He is currently on heated Hi flow, saturating 94%. D dimer elevated at 5.3, unable to get CTA due to cr 3.0. Review of Systems General: Reports: 10 or more systems reviewed and unremarkable except in HPI and below Const: Denies: fever(s), chills or body aches Eyes: Denies: change in vision, blurry vision or photophobia ENMT: Reports: hoarseness; Denies: throat pain, enlarged tonsils, odynophagia or nasal congestion Card: Denies: chest pain, palpitations, irregular heart rhythm, edema, swelling of feet/ankles, lightheadedness, pre-syncope, dyspnea on exertion or orthopnea Resp: Denies: dyspnea, productive cough, non-productive cough, wheezing, stridor, pain on inspiration, change in phlegm color, hemoptysis or chest congestion GI: Denies: abdominal pain, nausea, vomiting, hematemesis, coffee ground emesis, dysphagia, heartburn, diarrhea, constipation, GI cramping, change in stool character, hematochezia or melena : Denies: flank pain, dysuria, urinary frequency, urinary urgency, urinary hesitancy or hematuria Musc: Denies: neck pain, back pain, extremity pain, joint swelling, joint warmth or deformity Neuro: Denies: headache(s), numbness in extremities, weakness in extremities, sensory changes, difficulty walking, frequent falls, dizziness, vertigo, behavioral changes, Slurred speech present or seizure-like activity Psych: Denies: anxiety, depression, suicidal ideation or homicidal ideation Endo: Denies: polyuria, polydipsia, tired all the time, cold intolerance or hot flashes Gary/Lymph: Denies: easy bruising or easy bleeding Meds/Allergies Home Medications and Allergies Home Medications Medication Instructions Recorded Confirmed Last Taken Type aspirin 81 mg tablet,delayed 81 mg PO DAILY 12/04/19 01/11/21 01/11/21 History release fluticasone fur. 100 mcg-umeclid 1 inh INHALATION DAILY #60 ea 09/11/20 01/11/21 01/11/21 Rx 62.5 mcg-vilant 25 mcg inhalat.powder hydralazine 100 mg tablet 100 mg PO TID 30 Days #270 tab 09/22/20 01/11/21 01/11/21 Rx albuterol sulfate 90 mcg/actuation 2 puff INHALATION QID PRN #18 g 10/15/20 01/11/21 Unknown Rx aerosol inhaler alirocumab 75 mg/mL subcutaneous 75 mg SUBCUT Q14D #2 ml 10/15/20 01/11/21 Unkno wn Rx pen injector docusate sodium 100 mg capsule 100 mg PO DAILY #30 cap 10/15/20 01/11/21 01/11/21 Rx tramadol 50 mg tablet 50 mg PO Q6H PRN #120 tab 10/15/20 01/11/21 01/11/21 Rx atorvastatin 80 mg tablet 80 mg PO DAILY #90 tab 11/06/20 01/11/21 01/11/21 Rx losartan 100 mg tablet 100 mg PO DAILY #90 tab 11/19/20 01/11/21 01/11/21 Rx thyroid (pork) 120 mg tablet 120 mg PO DAILY #90 tab 11/19/20 01/11/21 01/11/21 Rx thyroid (pork) 15 mg tablet 15 mg PO DAILY #90 tab 11/19/20 01/11/21 01/11/21 Rx bumetanide 2 mg tablet 2 mg PO BID tab 12/11/20 01/11/21 01/11/21 History prednisone 20 mg tablet 20 mg PO DAILY tab 12/11/20 01/11/21 01/11/21 History sulfamethoxazole 400 1 tab PO BID 09/01/1201/11/21 01/11/21 History mg-trimethoprim 80 mg tablet levofloxacin 500 mg tablet 500 mg PO Q24H #10 tab 01/06/21 01/11/21 01/11/21 Rx metolazone 5 mg tablet 5 mg PO DAILY #11 tab 01/06/21 01/11/21 01/11/21 Rx ergocalciferol (vitamin D2) 1,250 mcg PO Q7D 01/11/21 01/11/21 01/06/21 History hydralazine 50 mg PO TID 01/11/21 01/11/21 01/11/21 History potassium chloride 20 meq PO DAILY 01/11/21 01/11/21 01/11/21 History Allergies Allergy/AdvReac Type Severity Reaction Status Date / Time No Known Allergies Allergy Verified 01/07/21 14:35 PFSH Acute PFSH: Medical History AAA (abdominal aortic aneurysm) Adult hypothyroidism CKD (chronic kidney disease) COPD (chronic obstructive pulmonary disease) DJD (degenerative joint disease) Extrinsic ureteral obstruction Hydronephrosis, right Hypertension Mixed hyperlipidemia Personal history of nicotine dependence Vitamin D deficiency Surgical History History of appendectomy History of cataract surgery Both eyes History of colonoscopy 2012 History of endovascular stent graft for abdominal aortic aneurysm (AAA) July 2017 Family History Mother , AT AGE 71 Stroke Grandmother Stroke Father , AT AGE 76 Hypertension Stroke Other CAD (coronary artery disease) Dementia Diabetes Social History Smoking and tobacco status: former smoker Quit status (tobacco): has quit using tobacco Year quit tobacco: 2020 Former quit date comment: [id number] Second hand smoke exposure: Yes Smoking risk assessment/counseling performed?: No Alcohol intake: never Desire information about alcohol rehabilitation?: No Counseling given: No Desire information about substance/drug rehabilitation?: No Counseling given: No Adopted: No Caregiver/support person: No Lives independently: Yes Household members: spouse Housing: House Marital status: service: Yes branch: [employer] Current occupational status: retired Current occupational exposures/hazards: No History of recent travel: No Current gender identity: Male Vitals/I&O/Wt Last Vital Signs Pulse 86 01/11/21 20:03 Resp 18 01/11/21 20:03 BP 116/72 01/11/21 20:03 Pulse Ox 95 01/11/21 20:03 Weight last 48 hrs Weight 77.111 kg Physical Exam Narrative: EXAM NARRATIVE: General: No acute distress, AO x3. tolerating heated hi flow NC HEENT: PERRLA, pupils bilaterally equal and reactive, pallors not present Chest: equal air entry bilaterally, scattered wheezing to auscultation CVS: S1-S2 regular, no murmurs, no tachycardia, no gallops, no rubs Abdomen: Soft, nontender, no organomegaly, bowel sounds present Neuro: No focal deficits, no facial deformity, AO x3, power 5/5 in all limbs Data Micro: Micro: Microbiology 01/11/21 16:50 Blood Culture - Pr eliminary Blood SPECIMEN [facility] 01/11/21 16:45 Blood Culture - Pr eliminary Blood SPECIMEN [facility] [place] Other Data: Attestation for Other Data: I personally reviewed and interpreted the following: Other data: Laboratory Results WBC 7.3 10^3/uL (4.0- 10.0) 01/12/21 04:55 RBC 2.80 10^6/uL (4.1 -5.3) L 01/12/21 04:55 Hgb 8.3 g/dL (11.7-16 .6) L 01/12/21 04:55 Hct 25.4 % (42.0-52.0 ) L 01/12/21 04:55 MCV 90.7 fl (80-94) 01/12/21 04:55 MCH 29.6 pg (28.0-34. 0) 01/12/21 04:55 MCHC 32.7 g/dL (30.0-3 6.0) 01/12/21 04:55 RDW 16.1 % (12.1-15.1 ) H 01/12/21 04:55 Plt Count 198 10^3/cmm (130 -400) 01/12/21 04:55 MPV 9.2 fL (7.4-10.4) 01/12/21 04:55 Neut % (Auto) 89.6 % 01/12/21 04:55 Lymph % (Auto) 6.0 % 01/12/21 04:55 [place] % (Auto) 3.7 % 01/12/21 04:55 Eos % (Auto) 0.0 % 01/12/21 04:55 Baso % (Auto) 0.0 % 01/12/21 04:55 Neut # (Auto) 6.52 10^3/uL (1.8 -7.7) 01/12/21 04:55 Lymph # (Auto) 0.4 10^3/uL (0.8- 4.8) L 01/12/21 04:55 [place] # (Auto) 0.3 10^3/uL (0.2- 0.9) 01/12/21 04:55 Eos # (Auto) 0.0 10^3/uL (0.0- 0.8) 01/12/21 04:55 Baso # (Auto) 0.0 10^3/uL (0.0- 0.1) 01/12/21 04:55 Nucleated RBC % (a uto) 0 % 01/12/21 04:55 Nucleated RBCs # 0.0 /100WBC 01/12/21 04:55 PT 12.40 SECONDS (12 .1-14.9) 01/11/21 14:26 INR 0.89 (0.8-1.2) 01/11/21 14:26 APTT 39.6 SECONDS (23. 9-36.7) H 01/11/21 14:26 D-Dimer 4.01 ug/mIFEU (0- 0.59) H 01/12/21 04:55 Specimen Type Arterial 01/11/21 14:45 Sample Site Radial, left 01/11/21 14:45 ABG pH 7.57 (7.35-7.45) H* 01/11/21 14:45 ABG pCO2 29.5 mmHg (35-45) L 01/11/21 14:45 ABG pO2 56.2 mmHg (80.0-1 00.0) L 01/11/21 14:45 ABG HCO3 27.0 mmol/L (22-2 6) H 01/11/21 14:45 ABG O2 Saturation 91.7 01/11/21 14:45 ABG Base Excess 5.5 mmol/L (-2.0- 2.0) H 01/11/21 14:45 Artemio Test Pos 01/11/21 14:45 A-a O2 Gradient 43.1 mmHg (5-10) H 01/11/21 14:45 Hematocrit 42.4 % (42-52) 01/11/21 14:45 Hgb O2 Saturation 90.0 % (95-100) L 01/11/21 14:45 Carboxyhemoglobin 1.1 %THgb (0.4-20 .1) 01/11/21 14:45 Methemoglobin 0.7 % (0.4-1.5) 01/11/21 14:45 Total Hemoglobin 13.8 g/dL (14-18) L 01/11/21 14:45 Sodium 134.0 mmol/L (131 -143) 01/11/21 14:45 Potassium 3.1 mmol/L (3.5-5 .0) L 01/11/21 14:45 Glucose 123.0 mg/dL (70-1 15) H 01/11/21 14:45 Ionized Calcium 1.2 mmol/L (1.1-1 .4) 01/11/21 14:45 O2 Delivery Device Hag 01/11/21 14:45 O2 Liters/Min 30.0 % 01/11/21 14:45 FiO2 60.0 % 01/11/21 14:45 Vegetable [employer] Work[employer] ID glc 01/11/21 14:45 Sodium 137 mmol/L (136-1 45) 01/12/21 04:55 Potassium 3.4 mmol/L (3.5-5 .1) L 01/12/21 04:55 Chloride 99 mmol/L (98-107 ) 01/12/21 04:55 Carbon Dioxide 27 mmol/L (22-29) 01/12/21 04:55 Anion Gap 14.4 (5-19) 01/12/21 04:55 BUN 56 mg/dL (8-23) H 01/12/21 04:55 Creatinine 3.2 mg/dL (0.7-1. 2) H 01/12/21 04:55 GFR Calculation Not Reportable 01/12/21 04:55 Glucose 110 mg/dL (65-115 ) 01/12/21 04:55 Calculated Osmolal ity 300 mOsm/kg (285- 295) H 01/12/21 04:55 Lactic Acid 2.9 mmol/L (0.5-2 .2) H 01/11/21 14:26 Lactic Acid (Sepsi s) 3.0 mmol/L (0.5-2 .2) H 01/11/21 16:45 Calcium 8.3 mg/dL (8.5-10 .5) L 01/12/21 04:55 Total Bilirubin 0.2 mg/dL (0.15-1 .2) 01/12/21 04:55 AST 42 U/L (0-40) H 01/12/21 04:55 ALT 37 U/L (0-41) 01/12/21 04:55 Alkaline Phosphata se 134 IU/L (40-130) H 01/12/21 04:55 Troponin T Baselin e 55 ng/L (0-15) H 01/11/21 14:26 Troponin T 120 Min [place] 48.90 ng/L (0-15) H 01/11/21 16:45 Delta Troponin T -6.10 ABS# (0-10) L 01/11/21 16:45 Troponin T Hi Sens 6Hr 44.84 ng/L (0-15) H 01/11/21 20:15 Troponin T Hi Sens 6Hr Delta -10.16 ng/L (0-12 ) L 01/11/21 20:15 C-Reactive Protein 193.6 mg/L (0.0-4 .9) H 01/12/21 04:55 NT-Pro-B Natriuret Pep 2609 pg/mL (0-450 ) H 01/11/21 14:26 Total Protein 4.7 g/dL (6.6-8.7 ) L 01/12/21 04:55 Albumin 2.0 g/dL (3.5-5.2 ) L 01/12/21 04:55 Globulin 2.7 g/dL (1.3-4.6 ) 01/12/21 04:55 Procalcitonin 0.47 ng/mL (0-0.5 ) 01/12/21 04:55 Urine Color Yellow (Yellow) 01/11/21 22:53 Urine Appearance Clear (CLEAR) 01/11/21 22:53 Urine pH 5 (5-7) 01/11/21 22:53 Ur Specific Gravit y 1.015 (1.005-1.0 30) 01/11/21 22:53 Urine Protein 3+ (Negative) H 01/11/21 22:53 Urine Glucose (UA) 2+ (Normal) H 01/11/21 22:53 Urine Ketones Negative (Negati ve) 01/11/21 22:53 Urine Blood 2+ (Negative) H 01/11/21 22:53 Urine Nitrate Negative (Negati ve) 01/11/21 22:53 Urine Bilirubin Neg (Negative) 01/11/21 22:53 Urine Urobilinogen Norm mg/dL (Negat ochoa) 01/11/21 22:53 Ur Leukocyte Shea ase Negative (Negati ve) 01/11/21 22:53 Urine RBC 0-4 /hpf (0-2) H 01/11/21 22:53 Urine WBC 5-10 /hpf (0-5) H 01/11/21 22:53 Ur Squamous Epith Cells 0-4 /hpf (0-5) H 01/11/21 22:53 Amorphous Sediment 2+ /hpf 01/11/21 22:53 Urine Bacteria Trace /hpf (NONE) 01/11/21 22:53 Hyaline Casts 0-4 /lpf H 01/11/21 22:53 Impressions Chest X-Ray 01/11/21 13:41 IMPRESSION: 1. Worsening bibasilar airspace disease. 2. Underlying bilateral emphysema. A&P Assessment and plan (1) Pneumonia due to COVID-19 virus: Remdisivir 100mg iv daily initiated dexamethasone 6mg IVP daily duoneb q6h, budesonide q12h scheduled nebulization empiric CTX and azithromycin Flutter valve/spirometer at bedside trend inflammatory markers including CRP, D dimer CTA PE unable to be performed due to Cr 3.0, high risk of ÁNGEL will order V/Q scan and LE duplex Holding off on presumptive anticoagulation due to known endoleak at vascular graft site and high risk of bleeding complications Covid 19 is overall pro thrombotic state and with elevated Dimer patient is at high risk of PE. Would be unable to safely start A/c in the setting of endoleak at this time without simultaneous vascular surgery evaluation and input. Per discussion with ER, Dr. Ahumada from vascular surgery is currently N/A this week. Recommend transfer to [facility] for this reason. Status: Acute (2) Hypoxia: related to COVID 19 supplemental 02 to keep sat 90-92% Status: Acute (3) CKD (chronic kidney disease): baseline cr 2.6, has been trending up recently Hold losartan for now Continue Bumex 2mg po BID currently appears to be euvolemic Status: Chronic Qualifiers: Chronic kidney disease stage: unspecified stage Qualified Code(s): N18.9 - Chronic kidney disease, unspecified (4) S/P AAA repair: Status: Acute (5) Endoleak of aortic graft: as above Status: Acute (6) COPD (chronic obstructive pulmonary disease): Status: Chronic Qualifiers: COPD type: unspecified COPD Qualified Code(s): J44.9 - Chronic obstructive pulmonary disease, unspecified Additional A&P Information DVT ppx: hold for now given above discussion, monitor H&H, received 70mg s/c lovenox at 4pm yesterday Coding Level of Care Code Acute Paper Cutter for [facility] Fwd Diagnoses Pneumonia due to COVID-19 virus U07.1; J12.82 Hypoxia R09.02 CKD (chronic kidney disease) N18.9 Chronic kidney disease stage: unspecified stage S/P AAA repair Z98.890; Z86.79 Endoleak of aortic graft COPD (chronic obstructive pulmonary disease) J44.9 COPD type: unspecified COPD
[2021-01-12] VITALS (125 sets, daily range): BP systolic 117–153; BP diastolic 57–105; PULSE 79–144; RESP 14–33; TEMP 37.1; O2SAT 77–99
[2021-01-12] MEDS: cefTRIAXone 1,000 MG in sodium chloride 0.9% (plus) 50 ML 100 MG IV (01:32)
[2021-01-12] MEDS: azithromycin 500 MG in sodium chloride 0.9% 250 ML 250 MG PO (02:11)
[2021-01-12 05:04] LABS: Hematocrit 25.4 % (42.0-52.0); Hemoglobin 8.3 g/dL (11.7-16.6); Lymphocytes # 0.4 10^3/uL (0.8-4.8); Mean Corpuscular HGB Conc 32.7 g/dL (30.0-36.0); Mean Corpuscular Hemoglobin 29.6 pg (28.0-34.0); Mean Corpuscular Volume 90.7 fl (80-94); Mean Platelet Volume 9.2 fL (7.4-10.4); Monocytes # 0.3 10^3/uL (0.2-0.9); Monocytes % 3.7 %; Neutrophils # 6.52 10^3/uL (1.8-7.7); Neutrophils % 89.6 %; Nucleated Red Blood Cells % 0 %; Platelet Count 198 10^3/cmm (130-400); Red Cell Distribution Width 16.1 % (12.1-15.1); White Blood Count 7.3 10^3/uL (4.0-10.0)
[2021-01-12 05:20] LABS: Alanine Aminotransferase 37 U/L (0-41); Alkaline Phosphatase 134 IU/L (40-130); Anion Gap 14.4 (5-19); Aspartate Amino Transferase 42 U/L (0-40); Blood Urea Nitrogen 56 mg/dL (8-23); C Reactive Protein 193.6 mg/L (0.0-4.9); Calcium 8.3 mg/dL (8.5-10.5); Carbon Dioxide 27 mmol/L (22-29); Chloride 99 mmol/L (98-107); Globulin 2.7 g/dL (1.3-4.6); Glucose 110 mg/dL (65-115); Osmolality Calculated 300 mOsm/kg (285-295); Potassium 3.4 mmol/L (3.5-5.1); Sodium 137 mmol/L (136-145); Total Bilirubin 0.2 mg/dL (0.15-1.2); Total Protein 4.7 g/dL (6.6-8.7)
[2021-01-12 05:22] LABS: D Dimer 4.01 ug/mIFEU (0-0.59)
[2021-01-12 05:27] LABS: Procalcitonin 0.47 ng/mL (0-0.5)
--- NOTE | 2021-01-12 08:41 | USCV_ITS ---
Matthew Chong Age: 75 Gender: M : 1945 Exam Date: 01/12/2021 09:08 Ordering Phys: Boogie Busby MD Technologist: Boni Ramirez Exam Location: [facility] Indication: SOB, COVID 19 BP: 128 / 72 HR: 90 Rhythm: Sinus Technical Quality: Fair MEASUREMENTS (Male / Female) Normal Values 2D ECHO LV Ejection Fraction MOD 2C 52.7 % LV Ejection Fraction 2C AL 50.2 % LA Width 5.1 cm LA Height 4.3 cm RA Width 4.5 cm RA Height 5.2 cm DOPPLER AV Peak Velocity 134.7 cm/s LVOT Peak Velocity 93.7 cm/s MV Area PHT 5.0 cm squared Mitral E to A Ratio 0.7 MV E' Velocity 39.5 cm/s Mitral E to MV E' Ratio 9.1 Mitral E to LV E' Lateral Ratio 8.8 Mitral E to LV E' Septal Ratio 9.3 TR Peak Velocity 192.3 cm/s TR Peak Gradient 14.8 mmHg TV Peak E Velocity 78.0 cm/s Right Atrial Pressure 3.0 mmHg Pulmonary Artery Systolic Pressu 17.8 mmHg FINDINGS Left Ventricle Normal LV size with the borderline low ejection fraction of 50%. Segmental wall motion analysis difficult because of the frequent arrhythmias. Technically difficult study because of the poor ultrasonic window. Right Ventricle Possibly of normal size and ejection fraction Right Atrium Appears to be mildly dilated Left Atrium Appears to be mildly dilated Mitral Valve Trace mitral valve regurgitation. Aortic Valve Thickened aortic valve. Tricuspid Valve No gross abnormalities noted Pulmonic Valve Pulmonic valve not well visualized. Pericardium Normal pericardium without effusion. Aorta Normal ascending aorta dimension. CONCLUSIONS Normal LV size with the borderline low ejection fraction of 50%. Segmental wall motion analysis difficult because of the frequent arrhythmias. Possible mild biatrial enlargement Thickened aortic valve. Trace mitral valve regurgitation. There are no intracardiac masses. There is no pericardial effusion. Technically difficult study because of the poor ultrasonic window. Dr Joyce Canas MD [facility] (Electronically Signed) Final Date: 13 January 2021 00:07 S
--- NOTE | 2021-01-12 08:44 | W.ED.COVID ---
HPI - COVID General: Chief Complaint: COVID symptoms Stated Complaint: 79% O2/COVID + Time Seen by Provider: 01/11/21 13:38 Triage information: Has fever, cough or shortness of breath. No known COVID + exposure last 14 days History of Present Illness: HPI Narrative: Assumed care at change of shift. Reviewed the initial ER note and the hospitalist consultation. Patient is Covid there is a strong concern he is a PE. 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 Have discussed with Dr. Arriola and he is reviewing the case as well and seeing who is assigned to from the overnight. At this point patient is stable he is on heated high flow maintaining sats in the low 90s with an FiO2 of 60% Interviewed patient 75-year-old male presented to the emergency room from the infusion clinic and evidently was having increasing shortness of breath.On arrival in the department he was noted to be 79%. Was reported that at the infusion clinic he was in the 50s percentile with his oxygen saturation on room air. He states his symptoms began about 10 days prior. He had gotten 1 Covid vaccination and then contracted Covid was tested positive at the [facility] and referred to the outpatient monoclonal antibody clinic when arriving there he was disqualified due to his oxygen need and referred to the emergency room. He has had some general myalgias and headache although they are relatively mild initially had some diarrhea he has noticed over the last 2 to 3 days onset of anosmia. He is noticed with exertion the shortness of breath is worse he denies any chest or abdominal pain. 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 Its been being monitored unfortunately it impinges on the ureter and has caused some post renal obstruction resulting in chronic kidney disease. He seen Dr. Ahumada in November and there is a detailed plan on going forward they had intended to have urology evaluate for possible stent and then refer back to [place] for further evaluation for repair of this aneurysm from the endoleak. Currently patient is awake and alert and gives answers appropriately is requiring continued heated high flow oxygen FiO2 of 60%. MD complaint: known COVID positive Prior covid testing: yes, results known Prior testing date: 01/06/21 COVID 19 common symptoms: positive fever(s), chills, cough, non-productive cough, dyspnea, fatigue, body aches, headache(s), loss of sense of smell and/or taste, nasal congestion, nausea and diarrhea; negative productive cough, throat pain, vomiting or chest tightness COVID 19 other sytmptoms: positive requiring oxygen; negative chest pain Onset (ago): day(s) Severity: moderate Pertinent comorbid conditions: hypertension, COPD/respiratory disease and chronic kidney disease Treatment prior to arrival: oxygen COVID Results: SARS-CoV-2 RNA (RT-PCR) Detected (NOT DETECTED) A 01/08/21 09:31 01/08/21 Review of Systems Const: Reports: fever(s), chills, body aches and fatigue ENMT: Reports: nasal congestion; Denies: throat pain Card: Reports: dyspnea on exertion; Denies: chest pain, edema or orthopnea Resp: Reports: dyspnea and non-productive cough; Denies: productive cough GI: Reports: nausea and diarrhea; Denies: vomiting : Denies: flank pain, dysuria, urinary frequency or urinary urgency Skin/Breast: Denies: rash or pruritus Neuro: Reports: headache(s) PFSH ED PFSH: Medical History AAA (abdominal aortic aneurysm) Adult hypothyroidism CKD (chronic kidney disease) COPD (chronic obstructive pulmonary disease) DJD (degenerative joint disease) Extrinsic ureteral obstruction Hydronephrosis, right Hypertension Mixed hyperlipidemia Personal history of nicotine dependence Vitamin D deficiency Surgical History History of appendectomy History of cataract surgery Both eyes History of colonoscopy 2012 History of endovascular stent graft for abdominal aortic aneurysm (AAA) July 2017 Family History Mother , AT AGE 71 Stroke Grandmother Stroke Father , AT AGE 76 Hypertension Stroke Other CAD (coronary artery disease) Dementia Diabetes Social History Smoking and tobacco status: former smoker Quit status (tobacco): has quit using tobacco Year quit tobacco: 2020 Former quit date comment: [id number] Second hand smoke exposure: Yes Smoking risk assessment/counseling performed?: No Alcohol intake: never Desire information about alcohol rehabilitation?: No Counseling given: No Desire information about substance/drug rehabilitation?: No Counseling given: No Adopted: No Caregiver/support person: No Lives independently: Yes Household members: spouse Housing: House Marital status: service: Yes branch: [employer] Current occupational status: retired Current occupational exposures/hazards: No History of recent travel: No Current gender identity: Male Physical Exam Const: COMMON NORMALS: no acute distress GENERAL APPEARANCE: cooperative and comfortable ORIENTATION/CONSCIOUSNESS: Yes awake, Yes oriented to person, Yes oriented to place and Yes oriented to time HENMT: COMMON NORMALS: normocephalic, atraumatic and hearing grossly normal bilaterally HEAD & SCALP: normocephalic and atraumatic Eye: COMMON NORMALS: Equal, round and reactive pupils present, EOMs intact bilaterally, conjunctivae normal and no scleral icterus CONJUNCTIVA: Yes conjunctivae normal PUPIL: Yes Equal, round and reactive pupils present Neck/C-Spine: COMMON NORMALS: no JVD Resp: AUSCULTATION: crackles and wheezes Cardio: COMMON NORMALS: no JVD, regular rate, regular rhythm and No murmurs present (Cardio) RATE: regular rate RHYTHM: regular rhythm GI: COMMON NORMALS: Soft to palpation and No hepatosplenomegaly present AUSCULTATION: Yes normoactive bowel sounds PALPATION: Yes Soft to palpation, No Tenderness to palpation present (GI), No Guarding due to palpation present (GI) and Yes No hepatosplenomegaly present Extremity: COMMON NORMALS: normal to inspection, capillary refill normal, no clubbing, cyanosis or edema, no calf tenderness and no pedal edema Neuro: SENSORIUM/ORIENTATION: Yes oriented to person, Yes oriented to place and Yes oriented to time Skin: COMMON NORMALS: no rashes or lesions noted GENERAL SKIN EXAM: no rashes or lesions noted Course Vital Signs: Vital signs: Vital Signs Temperature 98.7 F 01/12/21 07:40 Pulse Rate 115 H 01/12/21 16:45 Respiratory Rate 26 H 01/12/21 16:45 Blood Pressure 123/97 01/12/21 16:45 Pulse Oximetry 96 01/12/21 16:45 MDM - COVID MDM Narrative: Medical decision making narrative: Reviewed labs imaging and EKGs in the chart. D-dimer is markedly evident elevated unfortunately also has elevated creatinine there is a concern of doing his CTA because of the risk of worsening kidney disease he likely does need to be anticoagulated but this could create problems with a pseudoaneurysm which according to the most recent CT read today by Dr. Rock states it has expanded some. Last night Dr. Hahn had the hospitalist see the patient they were requesting that we transfer due to these complicating factors particularly the aneurysm and the need for anticoagulation since Dr. Ahumada will be around. I did talk to the vascular surgeons at [place] where the patient had this done they did not feel it was a significant risk to anticoagulate in this patient and did not require transfer. After this we get a report back from radiology on imaging done here that the aneurysm has enlarged since the previous time it was imaged.. At the time patient is resting stable he doing well on the heated high flow oxygen maintaining adequate O2 sats. He has been initiated on remdesivir and dexamethasone and anticoagulation. Hospitalist is seeing the patient as well we are working towards the most ideal placement for the patient given his multiple complicating factors. Please see also Dr. Busby and Dr. Valencia's notes. See is Dr. Busby seen the patient and then ultimately transferred to [facility] from the ER. See his notes. Patient transferred because of concern regarding the changes in the iliac aneurysm and the need for anticoagulation. Lab Data: Labs: Lab Results 01/11/21 01/11/21 01/11/21 14:26 14:26 14:26 WBC 8.7 10^3/uL 10^3/ uL (4.0-10.0) RBC 3.49 10^6/uL L 10 ^6/uL (4.1-5.3) Hgb 10.3 g/dL L g/dL (11.7-16.6) Hct 31.8 % L % (42.0-52.0) MCV 91.1 fl fl (80-94) MCH 29.5 pg pg (28.0-34.0) MCHC 32.4 g/dL g/dL (30.0-36.0) RDW 16.2 % H % (12.1-15.1) Plt Count 236 10^3/cmm 10^3 /cmm (130-400) MPV 9.6 fL fL (7.4-10.4) Neut % (Auto) 93.6 % % Lymph % (Auto) 2.5 % % [place] % (Auto) 3.0 % % Eos % (Auto) 0.0 % % Baso % (Auto) 0.0 % % Neut # (Auto) 8.18 10^3/uL H 10 ^3/uL (1.8-7.7) Lymph # (Auto) 0.2 10^3/uL L 10^ 3/uL (0.8-4.8) [place] # (Auto) 0.3 10^3/uL 10^3/ uL (0.2-0.9) Eos # (Auto) 0.0 10^3/uL 10^3/ uL (0.0-0.8) Baso # (Auto) 0.0 10^3/uL 10^3/ uL (0.0-0.1) Nucleated RBC % (a uto) 0 % % Nucleated RBCs # 0.0 /100WBC /100W BC PT 12.40 SECONDS SEC ONDS (12.1-14.9) INR 0.89 (0.8-1.2) APTT 39.6 SECONDS H SE CONDS (23.9-36.7) D-Dimer 5.31 ug/mIFEU H u g/mIFEU (0-0.59) Specimen Type Sample Site ABG pH ABG pCO2 ABG pO2 ABG HCO3 ABG O2 Saturation ABG Base Excess Artemio Test A-a O2 Gradient Hematocrit Hgb O2 Saturation Carboxyhemoglobin Methemoglobin Total Hemoglobin Ionized Calcium O2 Delivery Device O2 Liters/Min FiO2 B[employer] And [employer] Aid Labor ID Sodium 135 mmol/L L mmol /L (136-145) Potassium 3.6 mmol/L mmol/L (3.5-5.1) Chloride 94 mmol/L L mmol/ L (98-107) Carbon Dioxide 28 mmol/L mmol/L (22-29) Anion Gap 16.6 (5-19) BUN 48 mg/dL H mg/dL (8-23) Creatinine 3.0 mg/dL H mg/dL (0.7-1.2) GFR Calculation Not Reportable Glucose 102 mg/dL mg/dL (65-115) Calculated Osmolal ity 293 mOsm/kg mOsm/ kg (285-295) Lactic Acid Lactic Acid (Sepsi s) Calcium 8.8 mg/dL mg/dL (8.5-10.5) Total Bilirubin 0.2 mg/dL mg/dL (0.15-1.2) AST 60 U/L H U/L (0-40) ALT 50 U/L H U/L (0-41) Alkaline Phosphata se 180 IU/L H IU/L (40-130) Troponin T Baselin e Troponin T 120 Min [place] Delta Troponin T Troponin T Hi Sens 6Hr Troponin T Hi Sens 6Hr Delta C-Reactive Protein NT-Pro-B Natriuret Pep 2609 pg/mL H pg/m L (0-450) Total Protein 5.2 g/dL L g/dL (6.6-8.7) Albumin 2.2 g/dL L g/dL (3.5-5.2) Globulin 3.0 g/dL g/dL (1.3-4.6) Procalcitonin Urine Color Urine Appearance Urine pH Ur Specific Gravit y Urine Protein Urine Glucose (UA) Urine Ketones Urine Blood Urine Nitrate Urine Bilirubin Urine Urobilinogen Ur Leukocyte Shea ase Urine RBC Urine WBC Ur Eosinophil Smea r Ur Squamous Epith Cells Amorphous Sediment Urine Bacteria Hyaline Casts Urine Eosinophils Ur Random Sodium Ur Random Potassiu m Ur Random Chloride Urine Creatinine 01/11/21 01/11/21 01/11/21 14:26 14:26 14:45 WBC RBC Hgb Hct MCV MCH MCHC RDW Plt Count MPV Neut % (Auto) Lymph % (Auto) [place] % (Auto) Eos % (Auto) Baso % (Auto) Neut # (Auto) Lymph # (Auto) [place] # (Auto) Eos # (Auto) Baso # (Auto) Nucleated RBC % (a uto) Nucleated RBCs # PT INR APTT D-Dimer Specimen Type Arterial Sample Site Radial, left ABG pH 7.57 H* (7.35-7.45) ABG pCO2 29.5 mmHg L mmHg (35-45) ABG pO2 56.2 mmHg L mmHg (80.0-100.0) ABG HCO3 27.0 mmol/L H mmo l/L (22-26) ABG O2 Saturation 91.7 ABG Base Excess 5.5 mmol/L H mmol /L (-2.0-2.0) Artemio Test Pos A-a O2 Gradient 43.1 mmHg H mmHg (5-10) Hematocrit 42.4 % % (42-52) Hgb O2 Saturation 90.0 % L % (95-100) Carboxyhemoglobin 1.1 %THgb %THgb (0.4-20.1) Methemoglobin 0.7 % % (0.4-1.5) Total Hemoglobin 13.8 g/dL L g/dL (14-18) Ionized Calcium 1.2 mmol/L mmol/L (1.1-1.4) O2 Delivery Device Hag O2 Liters/Min 30.0 % % FiO2 60.0 % % B[employer] And Blocker Aid Labor ID glc Sodium 134.0 mmol/L mmol /L (131-143) Potassium 3.1 mmol/L L mmol /L (3.5-5.0) Chloride Carbon Dioxide Anion Gap BUN Creatinine GFR Calculation Glucose 123.0 mg/dL H mg/ dL (70-115) Calculated Osmolal ity Lactic Acid 2.9 mmol/L H mmol /L (0.5-2.2) Lactic Acid (Sepsi s) Calcium Total Bilirubin AST ALT Alkaline Phosphata se Troponin T Baselin e 55 ng/L H ng/L (0-15) Troponin T 120 Min [place] Delta Troponin T Troponin T Hi Sens 6Hr Troponin T Hi Sens 6Hr Delta C-Reactive Protein NT-Pro-B Natriuret Pep Total Protein Albumin Globulin Procalcitonin Urine Color Urine Appearance Urine pH Ur Specific Gravit y Urine Protein Urine Glucose (UA) Urine Ketones Urine Blood Urine Nitrate Urine Bilirubin Urine Urobilinogen Ur Leukocyte Shea ase Urine RBC Urine WBC Ur Eosinophil Smea r Ur Squamous Epith Cells Amorphous Sediment Urine Bacteria Hyaline Casts Urine Eosinophils Ur Random Sodium Ur Random Potassiu m Ur Random Chloride Urine Creatinine 01/11/21 01/11/21 01/11/21 16:45 16:45 20:15 WBC RBC Hgb Hct MCV MCH MCHC RDW Plt Count MPV Neut % (Auto) Lymph % (Auto) [place] % (Auto) Eos % (Auto) Baso % (Auto) Neut # (Auto) Lymph # (Auto) [place] # (Auto) Eos # (Auto) Baso # (Auto) Nucleated RBC % (a uto) Nucleated RBCs # PT INR APTT D-Dimer Specimen Type Sample Site ABG pH ABG pCO2 ABG pO2 ABG HCO3 ABG O2 Saturation ABG Base Excess Artemio Test A-a O2 Gradient Hematocrit Hgb O2 Saturation Carboxyhemoglobin Methemoglobin Total Hemoglobin Ionized Calcium O2 Delivery Device O2 Liters/Min FiO2 B[employer] And [employer] Aid Labor ID Sodium Potassium Chloride Carbon Dioxide Anion Gap BUN Creatinine GFR Calculation Glucose Calculated Osmolal ity Lactic Acid Lactic Acid (Sepsi s) 3.0 mmol/L H mmol /L (0.5-2.2) Calcium Total Bilirubin AST ALT Alkaline Phosphata se Troponin T Baselin e Troponin T 120 Min [place] 48.90 ng/L H ng/L (0-15) Delta Troponin T -6.10 ABS# L ABS# (0-10) Troponin T Hi Sens 6Hr 44.84 ng/L H ng/L (0-15) Troponin T Hi Sens 6Hr Delta -10.16 ng/L L ng/ L (0-12) C-Reactive Protein NT-Pro-B Natriuret Pep Total Protein Albumin Globulin Procalcitonin Urine Color Urine Appearance Urine pH Ur Specific Gravit y Urine Protein Urine Glucose (UA) Urine Ketones Urine Blood Urine Nitrate Urine Bilirubin Urine Urobilinogen Ur Leukocyte Shea ase Urine RBC Urine WBC Ur Eosinophil Smea r Ur Squamous Epith Cells Amorphous Sediment Urine Bacteria Hyaline Casts Urine Eosinophils Ur Random Sodium Ur Random Potassiu m Ur Random Chloride Urine Creatinine 01/11/21 01/12/21 01/12/21 22:53 04:55 04:55 WBC 7.3 10^3/uL 10^3/ uL (4.0-10.0) RBC 2.80 10^6/uL L 10 ^6/uL (4.1-5.3) Hgb 8.3 g/dL L g/dL (11.7-16.6) Hct 25.4 % L % (42.0-52.0) MCV 90.7 fl fl (80-94) MCH 29.6 pg pg (28.0-34.0) MCHC 32.7 g/dL g/dL (30.0-36.0) RDW 16.1 % H % (12.1-15.1) Plt Count 198 10^3/cmm 10^3 /cmm (130-400) MPV 9.2 fL fL (7.4-10.4) Neut % (Auto) 89.6 % % Lymph % (Auto) 6.0 % % [place] % (Auto) 3.7 % % Eos % (Auto) 0.0 % % Baso % (Auto) 0.0 % % Neut # (Auto) 6.52 10^3/uL 10^3 /uL (1.8-7.7) Lymph # (Auto) 0.4 10^3/uL L 10^ 3/uL (0.8-4.8) [place] # (Auto) 0.3 10^3/uL 10^3/ uL (0.2-0.9) Eos # (Auto) 0.0 10^3/uL 10^3/ uL (0.0-0.8) Baso # (Auto) 0.0 10^3/uL 10^3/ uL (0.0-0.1) Nucleated RBC % (a uto) 0 % % Nucleated RBCs # 0.0 /100WBC /100W BC PT INR APTT D-Dimer Specimen Type Sample Site ABG pH ABG pCO2 ABG pO2 ABG HCO3 ABG O2 Saturation ABG Base Excess Artemio Test A-a O2 Gradient Hematocrit Hgb O2 Saturation Carboxyhemoglobin Methemoglobin Total Hemoglobin Ionized Calcium O2 Delivery Device O2 Liters/Min FiO2 B[employer] And Blocker Aid Labor ID Sodium 137 mmol/L mmol/L (136-145) Potassium 3.4 mmol/L L mmol /L (3.5-5.1) Chloride 99 mmol/L mmol/L (98-107) Carbon Dioxide 27 mmol/L mmol/L (22-29) Anion Gap 14.4 (5-19) BUN 56 mg/dL H mg/dL (8-23) Creatinine 3.2 mg/dL H mg/dL (0.7-1.2) GFR Calculation Not Reportable Glucose 110 mg/dL mg/dL (65-115) Calculated Osmolal ity 300 mOsm/kg H mOs m/kg (285-295) Lactic Acid Lactic Acid (Sepsi s) Calcium 8.3 mg/dL L mg/dL (8.5-10.5) Total Bilirubin 0.2 mg/dL mg/dL (0.15-1.2) AST 42 U/L H U/L (0-40) ALT 37 U/L U/L (0-41) Alkaline Phosphata se 134 IU/L H IU/L (40-130) Troponin T Baselin e Troponin T 120 Min [place] Delta Troponin T Troponin T Hi Sens 6Hr Troponin T Hi Sens 6Hr Delta C-Reactive Protein NT-Pro-B Natriuret Pep Total Protein 4.7 g/dL L g/dL (6.6-8.7) Albumin 2.0 g/dL L g/dL (3.5-5.2) Globulin 2.7 g/dL g/dL (1.3-4.6) Procalcitonin Urine Color Yellow (Yellow) Urine Appearance Clear (CLEAR) Urine pH 5 (5-7) Ur Specific Gravit y 1.015 (1.005-1.030) Urine Protein 3+ H (Negative) Urine Glucose (UA) 2+ H (Normal) Urine Ketones Negative (Negative) Urine Blood 2+ H (Negative) Urine Nitrate Negative (Negative) Urine Bilirubin Neg (Negative) Urine Urobilinogen Norm mg/dL mg/dL (Negative) Ur Leukocyte Shea ase Negative (Negative) Urine RBC 0-4 /hpf H /hpf (0-2) Urine WBC 5-10 /hpf H /hpf (0-5) Ur Eosinophil Smea r Ur Squamous Epith Cells 0-4 /hpf H /hpf (0-5) Amorphous Sediment 2+ /hpf /hpf Urine Bacteria Trace /hpf /hpf (NONE) Hyaline Casts 0-4 /lpf H /lpf Urine Eosinophils Ur Random Sodium Ur Random Potassiu m Ur Random Chloride Urine Creatinine 01/12/21 01/12/21 01/12/21 04:55 04:55 08:40 WBC RBC Hgb Hct MCV MCH MCHC RDW Plt Count MPV Neut % (Auto) Lymph % (Auto) [place] % (Auto) Eos % (Auto) Baso % (Auto) Neut # (Auto) Lymph # (Auto) [place] # (Auto) Eos # (Auto) Baso # (Auto) Nucleated RBC % (a uto) Nucleated RBCs # PT INR APTT D-Dimer 4.01 ug/mIFEU H u g/mIFEU (0-0.59) Specimen Type Sample Site ABG pH ABG pCO2 ABG pO2 ABG HCO3 ABG O2 Saturation ABG Base Excess Artemio Test A-a O2 Gradient Hematocrit Hgb O2 Saturation Carboxyhemoglobin Methemoglobin Total Hemoglobin Ionized Calcium O2 Delivery Device O2 Liters/Min FiO2 B[employer] And [employer] Aid Labor ID Sodium Potassium Chloride Carbon Dioxide Anion Gap BUN Creatinine GFR Calculation Glucose Calculated Osmolal ity Lactic Acid Lactic Acid (Sepsi s) Calcium Total Bilirubin AST ALT Alkaline Phosphata se Troponin T Baselin e Troponin T 120 Min [place] Delta Troponin T Troponin T Hi Sens 6Hr Troponin T Hi Sens 6Hr Delta C-Reactive Protein 193.6 mg/L H mg/L (0.0-4.9) NT-Pro-B Natriuret Pep Total Protein Albumin Globulin Procalcitonin 0.47 ng/mL ng/mL (0-0.5) Urine Color Urine Appearance Urine pH Ur Specific Gravit y Urine Protein Urine Glucose (UA) Urine Ketones Urine Blood Urine Nitrate Urine Bilirubin Urine Urobilinogen Ur Leukocyte Shea ase Urine RBC Urine WBC Ur Eosinophil Smea r 0 (0-0) Ur Squamous Epith Cells Amorphous Sediment Urine Bacteria Hyaline Casts Urine Eosinophils No eosinophils se en Ur Random Sodium Ur Random Potassiu m Ur Random Chloride Urine Creatinine 01/12/21 01/12/21 01/12/21 08:40 09:45 09:45 WBC RBC Hgb 9.0 g/dL L g/dL (11.7-16.6) Hct 28.0 % L % (42.0-52.0) MCV MCH MCHC RDW Plt Count MPV Neut % (Auto) Lymph % (Auto) [place] % (Auto) Eos % (Auto) Baso % (Auto) Neut # (Auto) Lymph # (Auto) [place] # (Auto) Eos # (Auto) Baso # (Auto) Nucleated RBC % (a uto) Nucleated RBCs # PT INR APTT D-Dimer Specimen Type Sample Site ABG pH ABG pCO2 ABG pO2 ABG HCO3 ABG O2 Saturation ABG Base Excess Artemio Test A-a O2 Gradient Hematocrit Hgb O2 Saturation Carboxyhemoglobin Methemoglobin Total Hemoglobin Ionized Calcium O2 Delivery Device O2 Liters/Min FiO2 B[employer] And Bl[employer] Aid Labor ID Sodium Potassium Chloride Carbon Dioxide Anion Gap BUN Creatinine GFR Calculation Glucose Calculated Osmolal ity Lactic Acid Lactic Acid (Sepsi s) Calcium Total Bilirubin AST ALT Alkaline Phosphata se Troponin T Baselin e Troponin T 120 Min [place] Delta Troponin T Troponin T Hi Sens 6Hr Troponin T Hi Sens 6Hr Delta C-Reactive Protein NT-Pro-B Natriuret Pep Total Protein Albumin Globulin Procalcitonin 0.45 ng/mL ng/mL (0-0.5) Urine Color Urine Appearance Urine pH Ur Specific Gravit y Urine Protein Urine Glucose (UA) Urine Ketones Urine Blood Urine Nitrate Urine Bilirubin Urine Urobilinogen Ur Leukocyte Shea ase Urine RBC Urine WBC Ur Eosinophil Smea r Ur Squamous Epith Cells Amorphous Sediment Urine Bacteria Hyaline Casts Urine Eosinophils Ur Random Sodium 59 mmol/L mmol/L Ur Random Potassiu m 54 mmol/L mmol/L Ur Random Chloride 40 mmol/L mmol/L Urine Creatinine 78 mg/dL mg/dL (39-259) 01/12/21 15:50 WBC RBC Hgb 9.4 g/dL L g/dL (11.7-16.6) Hct 29.3 % L % (42.0-52.0) MCV MCH MCHC RDW Plt Count MPV Neut % (Auto) Lymph % (Auto) [place] % (Auto) Eos % (Auto) Baso % (Auto) Neut # (Auto) Lymph # (Auto) [place] # (Auto) Eos # (Auto) Baso # (Auto) Nucleated RBC % (a uto) Nucleated RBCs # PT INR APTT D-Dimer Specimen Type Sample Site ABG pH ABG pCO2 ABG pO2 ABG HCO3 ABG O2 Saturation ABG Base Excess Artemio Test A-a O2 Gradient Hematocrit Hgb O2 Saturation Carboxyhemoglobin Methemoglobin Total Hemoglobin Ionized Calcium O2 Delivery Device O2 Liters/Min FiO2 B[employer] And [employer] Aid Labor ID Sodium Potassium Chloride Carbon Dioxide Anion Gap BUN Creatinine GFR Calculation Glucose Calculated Osmolal ity Lactic Acid Lactic Acid (Sepsi s) Calcium Total Bilirubin AST ALT Alkaline Phosphata se Troponin T Baselin e Troponin T 120 Min [place] Delta Troponin T Troponin T Hi Sens 6Hr Troponin T Hi Sens 6Hr Delta C-Reactive Protein NT-Pro-B Natriuret Pep Total Protein Albumin Globulin Procalcitonin Urine Color Urine Appearance Urine pH Ur Specific Gravit y Urine Protein Urine Glucose (UA) Urine Ketones Urine Blood Urine Nitrate Urine Bilirubin Urine Urobilinogen Ur Leukocyte Shea ase Urine RBC Urine WBC Ur Eosinophil Smea r Ur Squamous Epith Cells Amorphous Sediment Urine Bacteria Hyaline Casts Urine Eosinophils Ur Random Sodium Ur Random Pot[place] m Ur Random Chloride Urine Creatinine COVID Results: SARS-CoV-2 RNA (RT-PCR) Detected (NOT DETECTED) A 01/08/21 09:31 01/08/21 Discharge Plan Discharge Patient Disposition: Admitted As Inpatient Clinical Impression: Pneumonia due to COVID-19 virus, S/P AAA repair, Aneurysm of right iliac artery COPD (chronic obstructive pulmonary disease) Qualifiers: COPD type: unspecified COPD Qualified Code(s): J44.9 - Chronic obstructive pulmonary disease, unspecified CKD (chronic kidney disease) Qualifiers: Chronic kidney disease stage: unspecified stage Qualified Code(s): N18.9 - Chronic kidney disease, unspecified Condition: Stable Coding Level of Care Code ED Practice Or Student Teacher for [facility] Fwd Exam Comprehensive
[2021-01-12] MEDS: budesonide 0.5 mg/2 mL Neb INHALATION (08:50)
[2021-01-12] MEDS: ipratropium-albuterol 3 mL Neb INHALATION ×2 (08:50→16:03)
--- NOTE | 2021-01-12 09:16 | CT_ITS ---
WS: [id number] CT CHEST, ABDOMEN, AND PELVIS TECHNIQUE: Noncontrast CT of the chest, abdomen, and pelvis with coronal and sagittal reformatted doug ges. CLINICAL INFORMATION: covid, endoleak COMPARISON: CTA November 27, 2020 DLP: 1204.[address] scans at [facility] use at least one of these dose optimization techniques: automated e xposure control; mA and/or kV adjustment per patient size (includes targeted exams where dose is matc hed to clinical indication); or iterative reconstruction. CT CHEST: Advanced chronic emphysematous changes. Hazy groundglass infiltrates in the right perihilar region an d bilateral lower lobes. Small right pleural effusion with compressive atelectasis right lower lobe. Trace left pleural fluid. Normal caliber thoracic aorta. Coronary calcification. No mediastinal or hi lar lymphadenopathy. CT ABDOMEN AND PELVIS: Prior postoperative changes aortic endograft with biiliac extension. 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 Specifically the external iliac artery pseudoaneurysm has increased i n size today measuring 5.5 x 4.3 cm compared to 3.5 x 3.3 cm previous. Some associated increased atte nuation blood products consistent with active endoleak or contained rupture. This has a similar confi guration to previous with overall increase in size. 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 Normal noncontrast liver. Noncontrast gallbladder is normal. Fatty atrophy of the pancreas. Noncontra st spleen is normal. Moderate right hydronephrosis with right ureterectasis is unchanged. This is due to compression of the right distal ureter by the pseudoaneurysm. Sigmoid diverticulosis. CT/CT chest abd pel wo con IMPRESSION: 1. Hazy groundglass infiltrates in the right perihilar region and both lower l obes likely due to COVID 19 Pneumonia pneumonia. 2. Small right pleural effusion with compressive atelectasis right lower lobe. 3. Prior aortic endograft repair with biiliac extension. 4. Distal abdominal aorta pseudoaneurysm is stable. 5. Significant interval increase in size of the right external iliac pseudoane urysm measuring 5.5 x 4.3 cm compared to 3.5 x 3.3 cm previous on November 27. Some high attenuation blood products consistent with active endoleak or con tained rupture. 6. 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 7. Moderate right hydronephrosis with right ureterectasis is unchanged. Pseudo aneurysm compresses the distal right ureter. Notified Boogie Busby MD at 01/12/2021 11:21 AM.
[2021-01-12 09:28] LABS: Potassium, Radom Urine 54 mmol/L; Urine Creatinine 78 mg/dL (39-259); Urine Random Chloride 40 mmol/L; Urine Random Sodium 59 mmol/L
[2021-01-12] MEDS: atorvastatin 40 mg Tablet 80 MG PO (09:40)
[2021-01-12] MEDS: docusate sodium 100 mg Capsule PO (09:40)
[2021-01-12] MEDS: aspirin 81 mg EC Tablet PO (09:40)
[2021-01-12] MEDS: thyroid 60 mg Tablet 135 MG PO (09:41)
[2021-01-12 10:16] LABS: Eosinophil Urine No Eosinophils Seen; Urine Eosinophil Count 0 (0-0)
--- NOTE | 2021-01-12 13:16 | P.CONIM_ITS ---
Providers/Reason For Consult Consulting Physician/Specialty*: Nephrology Reason for Consult*: Eval for GILBERT Primary Care Provider: ADAN Newton History of Present Illness History of Present Illness Thank you for consultation, today had the pleasure reviewing this very pleasant 75-year-old gentleman for evaluation of acute on chronic kidney disease. He has a complex recent history, he is known to have an abdominal aortic aneurysm status post endovascular repair in 2018 in [place], [place]. Recently he had an endovascular leak identified as well as right-sided hydronephrosis and was under the evaluation by Dr. Ahumada and Dr. Gupta. 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 He has UPCR in the 6 g/day range was initiated on prednisone, 60 mg p.o. daily as well as losartan. He now presents with increasing shortness of breath for the last few days. He went for monoclonal antibody infusion was subsequently transferred to the emergency room for hypoxia. He is now being treated with remdesivir and dexamethasone. He is currently on high flow nasal cannula, with FiO2 75%, 45 L. Apart from feeling short of breath, and slight loss of taste, he otherwise feels quite well. He has no specific complaints at this time. Passing his urine, actually emptying his bladder, Desir catheter is now placed. Minimal global edema with some swelling of his feet. He reports that his edema is considerably improved over the last month or so. Admission CT scan reidentified the endovascular leak and noted that head now increased in size to 5.5 x 4.3 cm and also reidentified the moderate right hydronephrosis. He denies uremic symptoms. Denies any exposure to recent potentially nephrotoxic substances. Hemodynamics reviewed, remain stable, last blood pressure 136/84 with a pulse of 94. Review of Systems Narrative: ROS - 12 point review of systems completed per HPI and subjective assessment, this includes Constitutional: Weakness, fatigue Respiratory: SOB on exertion, comfortable at rest CardioVasc: No chest pain, palpitations Gastrointestinal: No nausea, no vomiting Neurological: No seizures, no AMS Derm: No new rashes, lesions or wounds Immunological: No seasonal and no food allergies Meds/Allergies Home Medications and Allergies Home Medications Medication Instructions Recorded Confirmed Last Taken Type aspirin 81 mg tablet,delayed 81 mg PO DAILY 12/04/19 01/11/21 01/11/21 History release fluticasone fur. 100 mcg-umeclid 1 inh INHALATION DAILY #60 ea 09/11/20 01/11/21 01/11/21 Rx 62.5 mcg-vilant 25 mcg inhalat.powder hydralazine 100 mg tablet 100 mg PO TID 30 Days #270 tab 09/22/20 01/11/21 01/11/21 Rx albuterol sulfate 90 mcg/actuation 2 puff INHALATION QID PRN #18 g 10/15/20 01/11/21 Unknown Rx aerosol inhaler alirocumab 75 mg/mL subcutaneous 75 mg SUBCUT Q14D #2 ml 10/15/20 01/11/21 Unknown Rx pen injector docusate sodium 100 mg capsule 100 mg PO DAILY #30 cap 10/15/20 01/11/21 01/11/21 Rx tramadol 50 mg tablet 50 mg PO Q6H PRN #120 tab 10/15/20 01/11/21 01/11/21 Rx atorvastatin 80 mg tablet 80 mg PO DAILY #90 tab 11/06/20 01/11/21 01/11/21 Rx losartan 100 mg tablet 100 mg PO DAILY #90 tab 11/19/20 01/11/21 01/11/21 Rx thyroid (pork) 120 mg tablet 120 mg PO DAILY #90 tab 11/19/20 01/11/21 01/11/21 Rx thyroid (pork) 15 mg tablet 15 mg PO DAILY #90 tab 11/19/20 01/11/21 01/11/21 Rx bumetanide 2 mg tablet 2 mg PO BID tab 12/11/20 01/11/21 01/11/21 History prednisone 20 mg tablet 20 mg PO DAILY tab 12/11/20 01/11/21 01/11/21 History sulfamethoxazole 400 1 tab PO BID 12/31/20 01/11/21 01/11/21 History mg-trimethoprim 80 mg tablet levofloxacin 500 mg tablet 500 mg PO Q24H #10 tab 01/06/21 01/11/21 01/11/21 Rx metolazone 5 mg tablet 5 mg PO DAILY #11 tab 01/06/21 01/11/21 01/11/21 Rx ergocalciferol (vitamin D2) 1,250 mcg PO Q7D 09/01/11/21 01/06/21 History hydralazine 50 mg PO TID 01/11/21 01/11/21 01/11/21 History potassium chloride 20 meq PO DAILY 01/11/21 01/11/21 01/11/21 History Allergies Allergy/AdvReac Type Severity Reaction Status Date / Time No Known Allergies Allergy Verified 01/07/21 14:35 Current Medications Current Medications Generic Name Dose Route Start Last Admin Trade Name Freq PRN Reason Stop Dose Admin Albuterol/Ipratropium 3 ml 01/11/21 23:15 01/12/21 08:50 Ipratropium-Albuterol 3 Ml Neb INHALATION 3 ml Q6H.RESPIRATORY SURAJ Administration Aspirin 81 mg 01/12/21 09:00 01/12/21 09:40 Aspirin 81 Mg Ec Tablet PO 81 mg DAILY SURAJ Administration Atorvastatin Calcium 80 mg 01/12/21 09:00 01/12/21 09:40 Atorvastatin 40 Mg Tablet PO 80 mg DAILY SURAJ Administration Budesonide 0.5 mg 01/12/21 08:00 01/12/21 08:50 Budesonide 0.5 Mg/2 Ml Neb INHALATION 0.5 mg BID.RESPIRATORY SURAJ Administration Docusate Sodium 100 mg 01/12/21 09:00 01/12/21 09:40 Docusate Sodium 100 Mg Capsule PO 100 mg DAILY SURAJ Administration Hydralazine HCl 50 mg 01/12/21 09:00 01/12/21 09:43 Hydralazine 50 Mg Tablet PO Not Given TID SURAJ Ceftriaxone Sodium 1,000 mg/ 50 mls @ 100 mls/hr 01/11/21 23:30 01/12/21 02:12 Sodium Chloride IV Infused Q24H SURAJ Infusion Protocol Azithromycin 500 mg/ Sodium 250 mls @ 250 mls/hr 01/11/21 23:15 01/12/21 03:28 Chloride PO 01/14/21 23:14 Infused Q24H SURAJ Infusion Protocol Thyroid 135 mg 01/12/21 09:00 01/12/21 09:41 Thyroid 60 Mg Tablet PO 135 mg DAILY SURAJ Administration PFSH Acute PFSH: Medical History AAA (abdominal aortic aneurysm) Adult hypothyroidism CKD (chronic kidney disease) COPD (chronic obstructive pulmonary disease) DJD (degenerative joint disease) Extrinsic ureteral obstruction Hydronephrosis, right Hypertension Mixed hyperlipidemia Personal history of nicotine dependence Vitamin D deficiency Surgical History History of appendectomy History of cataract surgery Both eyes History of colonoscopy 2012 History of endovascular stent graft for abdominal aortic aneurysm (AAA) July 2017 Family History Mother , AT AGE 71 Stroke Grandmother Stroke Father , AT AGE 76 Hypertension Stroke Other CAD (coronary artery disease) Dementia Diabetes Social History Smoking and tobacco status: former smoker Quit status (tobacco): has quit using tobacco Year quit tobacco: 2020 Former quit date comment: [id number] Second hand smoke exposure: Yes Smoking risk assessment/counseling performed?: No Alcohol intake: never Desire information about alcohol rehabilitation?: No Counseling given: No Desire information about substance/drug rehabilitation?: No Counseling given: No Adopted: No Caregiver/support person: No Lives independently: Yes Household members: spouse Housing: House Marital status: service: Yes branch: [employer] Information Current occupational status: retired Current occupational exposures/hazards: No History of recent travel: No Current gender identity: Male Vitals/I&O/Wt Last Vital Signs Temp 98.7 F 01/12/21 07:40 Pulse 94 01/12/21 12:00 Resp 16 01/12/21 12:00 BP 136/84 01/12/21 12:00 Pulse Ox 93 01/12/21 12:00 01/11/21 01/12/21 01/12/21 22:59 06:59 14:59 Intake Total 300 / 300 Balance 300 / 300 Weight last 48 hrs Weight 77.111 kg Physical Exam Narrative: EXAM NARRATIVE: Constitutional: Awake, comfortable HEENT: Wet mucosa, no jvp, non icteric Lungs: Bilaterally clear without discernible wheeze, rales in all lung zones CVS: S1 S2, no murmurs Abdo: Soft, BS ok Ext 4: 1-2+ edema, peripheral perfusion with no cyanosis Neurological: Grossly non-focal Urinary Catheter Management^: Coude: Cath Placed During This Visit: yes Urinary Catheter Date of Insertion: 01/12/21 Urinary Catheter Time of Insertion: 11:15 Data Micro: Micro: Microbiology 01/11/21 16:50 Blood Culture - Pr eliminary Blood SPECIMEN KATHY SHERRILL 01/11/21 16:45 Blood Culture - Pr eliminary Blood SPECIMEN [facility] SHER[facility] A&P Additional A&P Information 1. Renal dysfunction Serum creatinine currently 3.2 mg/dL, this is not too far from some of the readings we have seen over the past few months, his creatinine had peaked at 3.6 on 11/30/2020. UPCR in the system measured back in November was 6.246 g/g. This is nephrotic range. Renal biopsy report demonstrated FSGS and he is receiving prednisone 60 mg p.o. daily in addition to losartan therapy. He still has peripheral edema as well as infiltrates on chest x-ray, yesterday received some diuretics. Currently on hold today. I will resume Bumex 2 mg p.o. daily, at home he takes this twice a day. We will monitor his renal function closely. No further diagnostic testing is required. Strict ins and outs Avoid usual nephrotoxic agents Dose medication for GFR less than 30. 2. Covid pneumonitis Currently on high flow nasal cannula at 35 L with FiO2 75%, receiving remdesivir and dexamethasone. Management per the hospitalist team. 3. Endovascular leak Admission CT scan demonstrates this is increasing in size. Management per vascular surgery, request for transfer noted with limited available beds in local facilities. 4. Right-sided hydronephrosis Found recently, intervention is planned in the near future per Dr. Gupta's team. He may need to be involved during hospitalization as well. 5. Chemistry Potassium is slightly low, continue to monitor and follow, low-dose potassium replacement therapy. Thank you for consultation, as always it is a pleasure to follow these cases with you Reed Thomson MD Nephrology [phone] Patient seen and examined via telemedicine, with the assistance of the bedside RN > 25 min spent in evaluation and mgmt of patient Coding Level of Care Code Acute Powdered Sugar Pulverizer Operator for Dylan Aguilar
[2021-01-12 13:35] LABS: Procalcitonin 0.45 ng/mL (0-0.5)
[2021-01-12] MEDS: cefepime 2,000 MG in sodium chloride 0.9% (plus) 50 ML 100 MG IV (14:18)
[2021-01-12] MEDS: potassium chloride ER 20 mEq Tablet PO (14:19)
[2021-01-12] MEDS: bumetanide 1 mg Tablet 2 MG PO (14:19)
--- NOTE | 2021-01-12 14:19 | P.TS_ITS ---
Transfer Summary Providers Date of Discharge: 01/12/21 Primary Care Provider: ADAN Newton Anticipated Date of Transfer: Anticipated date of transfer: 01/12/21 Receiving Facility & Provider: Receiving Provider: [] Receiving facility: [] Diagnoses at Discharge Discharge Diagnosis (1) Pneumonia due to COVID-19 virus: Status: Acute (2) Hypoxia: Status: Acute (3) CKD (chronic kidney disease): Status: Chronic Qualifiers: Chronic kidney disease stage: unspecified stage Qualified Code(s): N18.9 - Chronic kidney disease, unspecified (4) S/P AAA repair: Status: Acute (5) Endoleak of aortic graft: Status: Acute (6) COPD (chronic obstructive pulmonary disease): Status: Chronic Qualifiers: COPD type: unspecified COPD Qualified Code(s): J44.9 - Chronic obstructive pulmonary disease, unspecified Reason for Visit Reason for Visit: 79% O2/COVID + Hospital Course Hospital Course This is a 75-year-old male with a past medical history of COPD, CKD baseline creatinine 2.2-2.6, hypothyroidism, chronic smoker, history of ureteral stricture, history of aortic endograft with biiliac extension with 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 Ahumada after getting renal biopsy for worsening CKD, renal biopsy showing focal segmental glomerulosclerosis who presents to [facility] due to shortness of breath Patient was admitted to [facility] for hypoxia shortness of breath secondary to COVID-19 pneumonia, acute hypoxic respiratory failure, and developing acute respiratory distress syndrome. Patient was managed on high flow, quickly progressed to BiPAP therapy currently on 50% FiO2, 20/10, alert oriented x3, has no complaints of shortness of breath. Patient has a high risk of intubation and mechanical ventilation the next 24 to 48 hours given his developing acute respiratory distress syndrome. After discussion with patient, he wants to remain a full code, he is agreeable to intubation if required, he was also managed with broad-spectrum antibiotic therapy vancomycin, cefepime, received remdesivir, and Decadron, and also have given him 1 dose of Actemra. Given patient's complicated history as below, he will require multidisciplinary team, he was transferred to [facility] Dr. Dixon, Dr. Bernabe Patient has a history endovascular repair of abdominal aortic aneurysm, with known endoleak of the iliac limb since October 2020, following up with Dr. Ahumada, CTA scan in November 27, 2020 showed 1. Moderate right hydronephrosis with right ureterectasis appears stable compared to November 03, 2020. Right ureter is obstructed by the right lower quadrant aneurysm/pseudoaneurysm. 2. Aortic endograft with biiliac extension and distal abdominal aorta pseudoaneurysm is unchanged described above. 3. Lobulated right lower pelvic pseudoaneurysm with junctional endoleak appears stable since the noncontrast CT November 03, 2020. 4. 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 5. Recommend vascular surgery consult. 6. Moderate right pleural effusion appears slightly increased. Small left pleural effusion. 7. 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 Gupta, patient was evaluated by Candy in early December, for consideration of improving renal function by stenting, as this might improve his outcome as he would receive contrast during surgical intervention -Given his worsening kidney function up to 3.6 as outpatient, he was set up to have a kidney biopsy, which was completed, showing focal segmental glomerulosclerosis -Repeat CT scan during this hospital admission showed -Currently patient is asymptomatic, no abdominal complaints -1.Prior aortic endograft repair with biiliac extension. -2.Distal abdominal aorta pseudoaneurysm is stable. -3 Significant interval increase in size of the right external iliac pseudoaneurysm measuring 5.5 x 4.3 cm compared to 3.5 x 3.3 cm previous on November 27, 2020. Some high attenuation blood products consistent with active endoleak or contained rupture. -Given patient's complicated history and junctional endoleak, now with acute respiratory failure, it was felt the patient would clinically benefit from a multidisciplinary team for his acute respiratory failure, and vascular surgery for evaluation of his endovascular leak -Was transferred [facility] For his right sided hydronephrosis, secondary to junctional endoleak, likely will require stenting at some point once stable, UA without evidence of UTI, urine cultures, blood cultures pending Patient also had worsening kidney function during his hospitalization, creatinine up to 3.2, drop in his urine output, has been receiving prednisone 20 mg daily for focal segmental sclerosis, his diuretic therapy was resumed, nephrology was consulted, monitoring creatinine, monitor urine output, patient is a high risk of CRRT in the next 24 to 48 hours Transaminitis, secondary COVID-19 NSTEMI, likely type II, supply demand ischemia related acute respiratory failure as above, cannot rule out underlying cardiac etiology, cardiac echocardiogram pending Physical Exam Const: COMMON NORMALS: patient oriented x3 HENMT: COMMON NORMALS: normocephalic HEAD & SCALP: normocephalic Neck/C-Spine: COMMON NORMALS: no JVD Resp: COMMON NORMALS: normal respiratory effort, No retractions and No use of accessory muscles AUSCULTATION: diminished lung sounds diffuse Cardio: COMMON NORMALS: no JVD, regular rhythm, S1 normal heart sound present and S2 normal heart sound present RATE: tachycardic RHYTHM: regular rhythm HEART SOUNDS: S1 normal heart sound present and S2 normal heart sound present GI: COMMON NORMALS: Normal to inspection, nondistended, normoactive bowel sounds present, Soft to palpation, non-tender and No hepatosplenomegaly present PALPATION: Yes Soft to palpation and Yes No hepatosplenomegaly present Extremity: COMMON NORMALS: no pedal edema Neuro: COMMON NORMALS: patient oriented x3, CN's II-XII intact bilaterally and moves all extremities Urinary Catheter Management^: Coude: Cath Placed During This Visit: yes Urinary Catheter Date of Insertion: 01/12/21 Urinary Catheter Time of Insertion: 11:15 TS Data Data Completed and Pending: Completed Studies During Hospitalization Category Date Time Status CT chest abd pel wo con Urgent Cat Scan 01/12/21 09:16 Completed XR chest 1V edward ble [id number] Stat Exams 01/11/21 13:41 Completed Pending at discharge Category Date Time Status Blood Culture Sta t Lab 01/11/21 16:50 Results Hemoglobin and He matocrit Stat Lab 01/12/21 16:00 Ordered Osmolality Urine Stat Lab 01/12/21 08:40 [place] [id number] Routin e Ultrasound 01/12/21 23:10 Taken CV. echo complete * [id number] Routine Ultrasound 01/12/21 08:41 Taken Labs from last 24 hours 01/12/21 01/12/21 01/12/21 09:45 09:45 08:40 WBC RBC Hgb 9.0 L Hct 28.0 L MCV MCH MCHC RDW Plt Count MPV Neut % (Auto) Lymph % (Auto) [place] % (Auto) Eos % (Auto) Baso % (Auto) Neut # (Auto) Lymph # (Auto) [place] # (Auto) Eos # (Auto) Baso # (Auto) Nucleated RBC % (a uto) Nucleated RBCs # PT INR APTT D-Dimer Specimen Type Sample Site ABG pH ABG pCO2 ABG pO2 ABG HCO3 ABG O2 Saturation ABG Base Excess Artemio Test A-a O2 Gradient Hematocrit Hgb O2 Saturation Carboxyhemoglobin Methemoglobin Total Hemoglobin Ionized Calcium O2 Delivery Device O2 Liters/Min FiO2 Mobile Battery Technician ID Sodium Potassium Chloride Carbon Dioxide Anion Gap BUN Creatinine GFR Calculation Glucose Calculated Osmolal ity Lactic Acid Lactic Acid (Sepsi s) Calcium Total Bilirubin AST ALT Alkaline Phosphata se Troponin T Baselin e Troponin T 120 Min [place] Troponin T Troponin T Hi Sens 6Hr Troponin T Hi Sens 6Hr Delta C-Reactive Protein NT-Pro-B Natriuret Pep Total Protein Albumin Globulin Procalcitonin 0.45 Urine Color Urine Appearance Urine pH Ur Specific Gravit y Urine Protein Urine Glucose (UA) Urine Ketones Urine Blood Urine Nitrate Urine Bilirubin Urine Urobilinogen Ur Leukocyte Shea ase Urine RBC Urine WBC Ur Eosinophil Smea r Ur Squamous Epith Cells Amorphous Sediment Urine Bacteria Hyaline Casts Urine Eosinophils Urine Osmolality Pending Ur Random Sodium Ur Random [place] m Ur Random Chloride Urine Creatinine 01/12/21 01/12/21 01/12/21 08:40 08:40 04:55 WBC RBC Hgb Hct MCV MCH MCHC RDW Plt Count MPV Neut % (Auto) Lymph % (Auto) [place] % (Auto) Eos % (Auto) Baso % (Auto) Neut # (Auto) Lymph # (Auto) [place] # (Auto) Eos # (Auto) Baso # (Auto) Nucleated RBC % (a uto) Nucleated RBCs # PT INR APTT D-Dimer Specimen Type Sample Site ABG pH ABG pCO2 ABG pO2 ABG HCO3 ABG O2 Saturation ABG Base Excess Artemio Test A-a O2 Gradient Hematocrit Hgb O2 Saturation Carboxyhemoglobin Methemoglobin Total Hemoglobin Ionized Calcium O2 Delivery Device O2 Liters/Min FiO2 Mobile Battery Technician ID Sodium Potassium Chloride Carbon Dioxide Anion Gap BUN Creatinine GFR Calculation Glucose Calculated Osmolal ity Lactic Acid Lactic Acid (Sepsi s) Calcium Total Bilirubin AST ALT Alkaline Phosphata se Troponin T Baselin e Troponin T 120 Min [place] Troponin T Troponin T Hi Sens 6Hr Troponin T Hi Sens 6Hr Delta C-Reactive Protein 193.6 H NT-Pro-B Natriuret Pep Total Protein Albumin Globulin Procalcitonin 0.47 Urine Color Urine Appearance Urine pH Ur Specific Gravit y Urine Protein Urine Glucose (UA) Urine Ketones Urine Blood Urine Nitrate Urine Bilirubin Urine Urobilinogen Ur Leukocyte Shea ase Urine RBC Urine WBC Ur Eosinophil Smea r 0 Ur Squamous Epith Cells Amorphous Sediment Urine Bacteria Hyaline Casts Urine Eosinophils No eosinophils se en Urine Osmolality Ur Random Sodium 59 Ur Random [place] m 54 Ur Random Chloride 40 Urine Creatinine 78 01/12/21 01/12/21 01/12/21 04:55 04:55 04:55 WBC 7.3 RBC 2.80 L Hgb 8.3 L Hct 25.4 L MCV 90.7 MCH 29.6 MCHC 32.7 RDW 16.1 H Plt Count 198 MPV 9.2 Neut % (Auto) 89.6 Lymph % (Auto) 6.0 [place] % (Auto) 3.7 Eos % (Auto) 0.0 Baso % (Auto) 0.0 Neut # (Auto) 6.52 Lymph # (Auto) 0.4 L [place] # (Auto) 0.3 Eos # (Auto) 0.0 Baso # (Auto) 0.0 Nucleated RBC % (a uto) 0 Nucleated RBCs # 0.0 PT INR APTT D-Dimer 4.01 H Specimen Type Sample Site ABG pH ABG pCO2 ABG pO2 ABG HCO3 ABG O2 Saturation ABG Base Excess Artemio Test A-a O2 Gradient Hematocrit Hgb O2 Saturation Carboxyhemoglobin Methemoglobin Total Hemoglobin Ionized Calcium O2 Delivery Device O2 Liters/Min FiO2 Mobile Battery Technician ID Sodium 137 Potassium 3.4 L Chloride 99 Carbon Dioxide 27 Anion Gap 14.4 BUN 56 H Creatinine 3.2 H GFR Calculation Not Reportable Glucose 110 Calculated Osmolal ity 300 H Lactic Acid Lactic Acid (Sepsi s) Calcium 8.3 L Total Bilirubin 0.2 AST 42 H ALT 37 Alkaline Phosphata se 134 H Troponin T Baselin e Troponin T 120 Min [place] Troponin T Troponin T Hi Sens 6Hr Troponin T Hi Sens 6Hr [place] C-Reactive Protein NT-Pro-B Natriuret Pep Total Protein 4.7 L Albumin 2.0 L Globulin 2.7 Procalcitonin Urine Color Urine Appearance Urine pH Ur Specific Gravit y Urine Protein Urine Glucose (UA) Urine Ketones Urine Blood Urine Nitrate Urine Bilirubin Urine Urobilinogen Ur Leukocyte Shea ase Urine RBC Urine WBC Ur Eosinophil Smea r Ur Squamous Epith Cells Amorphous Sediment Urine Bacteria Hyaline Casts Urine Eosinophils Urine Osmolality Ur Random Sodium Ur Random [place] m Ur Random Chloride Urine Creatinine 01/11/21 01/11/21 01/11/21 22:53 20:15 16:45 WBC RBC Hgb Hct MCV MCH MCHC RDW Plt Count MPV Neut % (Auto) Lymph % (Auto) [place] % (Auto) Eos % (Auto) Baso % (Auto) Neut # (Auto) Lymph # (Auto) [place] # (Auto) Eos # (Auto) Baso # (Auto) Nucleated RBC % (a uto) Nucleated RBCs # PT INR APTT D-Dimer Specimen Type Sample Site ABG pH ABG pCO2 ABG pO2 ABG HCO3 ABG O2 Saturation ABG Base Excess Artemio Test A-a O2 Gradient Hematocrit Hgb O2 Saturation Carboxyhemoglobin Methemoglobin Total Hemoglobin Ionized Calcium O2 Delivery Device O2 Liters/Min FiO2 Mobile Battery Technician ID Sodium Potassium Chloride Carbon Dioxide Anion Gap BUN Creatinine GFR Calculation Glucose Calculated Osmolal ity Lactic Acid Lactic Acid (Sepsi s) 3.0 H Calcium Total Bilirubin AST ALT Alkaline Phosphata se Troponin T Baselin e Troponin T 120 Min [place] Troponin T Troponin T Hi Sens 6Hr 44.84 H Troponin T Hi Sens 6Hr Delta -10.16 L C-Reactive Protein NT-Pro-B Natriuret Pep Total Protein Albumin Globulin Procalcitonin Urine Color Yellow Urine Appearance Clear Urine pH 5 Ur Specific Gravit y 1.015 Urine Protein 3+ H Urine Glucose (UA) 2+ H Urine Ketones Negative Urine Blood 2+ H Urine Nitrate Negative Urine Bilirubin Neg Urine Urobilinogen Norm Ur Leukocyte Shea ase Negative Urine RBC 0-4 H Urine WBC 5-10 H Ur Eosinophil Smea r Ur Squamous Epith Cells 0-4 H Amorphous Sediment 2+ Urine Bacteria Trace Hyaline Casts 0-4 H Urine Eosinophils Urine Osmolality Ur Random Sodium Ur Random [place] m Ur Random Chloride Urine Creatinine 01/11/21 01/11/21 01/11/21 16:45 14:45 14:26 WBC RBC Hgb Hct MCV MCH MCHC RDW Plt Count MPV Neut % (Auto) Lymph % (Auto) [place] % (Auto) Eos % (Auto) Baso % (Auto) Neut # (Auto) Lymph # (Auto) [place] # (Auto) Eos # (Auto) Baso # (Auto) Nucleated RBC % (a uto) Nucleated RBCs # PT INR APTT D-Dimer Specimen Type Arterial Sample Site Radial, left ABG pH 7.57 H* ABG pCO2 29.5 L ABG pO2 56.2 L ABG HCO3 27.0 H ABG O2 Saturation 91.7 ABG Base Excess 5.5 H Artemio Test Pos A-a O2 Gradient 43.1 H Hematocrit 42.4 Hgb O2 Saturation 90.0 L Carboxyhemoglobin 1.1 Methemoglobin 0.7 Total Hemoglobin 13.8 L Ionized Calcium 1.2 O2 Delivery Device Hag O2 Liters/Min 30.0 FiO2 60.0 Mobile Battery Technician ID glc Sodium 134.0 Potassium 3.1 L Chloride Carbon Dioxide Anion Gap BUN Creatinine GFR Calculation Glucose 123.0 H Calculated Osmolal ity Lactic Acid Lactic Acid (Sepsi s) Calcium Total Bilirubin AST ALT Alkaline Phosphata se Troponin T Baselin e 55 H Troponin T 120 Min [place] 48.90 H Delta Troponin T -6.10 L Troponin T Hi Sens 6Hr Troponin T Hi Sens 6Hr Delta C-Reactive Protein NT-Pro-B Natriuret Pep Total Protein Albumin Globulin Procalcitonin Urine Color Urine Appearance Urine pH Ur Specific Gravit y Urine Protein Urine Glucose (UA) Urine Ketones Urine Blood Urine Nitrate Urine Bilirubin Urine Urobilinogen Ur Leukocyte Shea ase Urine RBC Urine WBC Ur Eosinophil Smea r Ur Squamous Epith Cells Amorphous Sediment Urine Bacteria Hyaline Casts Urine Eosinophils Urine Osmolality Ur Random Sodium Ur Random [place] m Ur Random Chloride Urine Creatinine 01/11/21 01/11/21 01/11/21 14:26 14:26 14:26 WBC RBC Hgb Hct MCV MCH MCHC RDW Plt Count MPV Neut % (Auto) Lymph % (Auto) [place] % (Auto) Eos % (Auto) Baso % (Auto) Neut # (Auto) Lymph # (Auto) [place] # (Auto) Eos # (Auto) Baso # (Auto) Nucleated RBC % (a uto) Nucleated RBCs # PT 12.40 INR 0.89 APTT 39.6 H D-Dimer 5.31 H Specimen Type Sample Site ABG pH ABG pCO2 ABG pO2 ABG HCO3 ABG O2 Saturation ABG Base Excess Artemio Test A-a O2 Gradient Hematocrit Hgb O2 Saturation Carboxyhemoglobin Methemoglobin Total Hemoglobin Ionized Calcium O2 Delivery Device O2 Liters/Min FiO2 Mobile Battery Technician ID Sodium 135 L Potassium 3.6 Chloride 94 L Carbon Dioxide 28 Anion Gap 16.6 BUN 48 H Creatinine 3.0 H GFR Calculation Not Reportable Glucose 102 Calculated Osmolal ity 293 Lactic Acid 2.9 H Lactic Acid (Sepsi s) Calcium 8.8 Total Bilirubin 0.2 AST 60 H ALT 50 H Alkaline Phosphata se 180 H Troponin T Baselin e Troponin T 120 Min [place] Troponin T Troponin T Hi Sens 6Hr Troponin T Hi Sens 6Hr [place] C-Reactive Protein NT-Pro-B Natriuret Pep 2609 H Total Protein 5.2 L Albumin 2.2 L Globulin 3.0 Procalcitonin Urine Color Urine Appearance Urine pH Ur Specific Gravit y Urine Protein Urine Glucose (UA) Urine Ketones Urine Blood Urine Nitrate Urine Bilirubin Urine Urobilinogen Ur Leukocyte [place] Urine RBC Urine WBC Ur Eosinophil Smea r Ur Squamous Epith Cells Amorphous Sediment Urine Bacteria Hyaline Casts Urine Eosinophils Urine Osmolality Ur Random Sodium Ur Random [place] m Ur Random Chloride Urine Creatinine 01/11/21 14:26 WBC 8.7 RBC 3.49 L Hgb 10.3 L Hct 31.8 L MCV 91.1 MCH 29.5 MCHC 32.4 RDW 16.2 H Plt Count 236 MPV 9.6 Neut % (Auto) 93.6 Lymph % (Auto) 2.5 [place] % (Auto) 3.0 Eos % (Auto) 0.0 Baso % (Auto) 0.0 Neut # (Auto) 8.18 H Lymph # (Auto) 0.2 L [place] # (Auto) 0.3 Eos # (Auto) 0.0 Baso # (Auto) 0.0 Nucleated RBC % (a uto) 0 Nucleated RBCs # 0.0 PT INR APTT D-Dimer Specimen Type Sample Site ABG pH ABG pCO2 ABG pO2 ABG HCO3 ABG O2 Saturation ABG Base Excess Artemio Test A-a O2 Gradient Hematocrit Hgb O2 Saturation Carboxyhemoglobin Methemoglobin Total Hemoglobin Ionized Calcium O2 Delivery Device O2 Liters/Min FiO2 Mobile Battery Technician ID Sodium Potassium Chloride Carbon Dioxide Anion Gap BUN Creatinine GFR Calculation Glucose Calculated Osmolal ity Lactic Acid Lactic Acid (Sepsi s) Calcium Total Bilirubin AST ALT Alkaline Phosphata se Troponin T Baselin e Troponin T 120 Min [place] Troponin T Troponin T Hi Sens 6Hr Troponin T Hi Sens 6Hr [place] C-Reactive Protein NT-Pro-B Natriuret Pep Total Protein Albumin Globulin Procalcitonin Urine Color Urine Appearance Urine pH Ur Specific Gravit y Urine Protein Urine Glucose (UA) Urine Ketones Urine Blood Urine Nitrate Urine Bilirubin Urine Urobilinogen Ur Leukocyte [place] Urine RBC Urine WBC Ur Eosinophil Smea r Ur Squamous Epith Cells Amorphous Sediment Urine Bacteria Hyaline Casts Urine Eosinophils Urine Osmolality Ur Random Sodium Ur Random [place] m Ur Random Chloride Urine Creatinine Vitals: Last Vital Signs Temp 98.7 F 01/12/21 07:40 Pulse 114 H 01/12/21 13:41 Resp 17 01/12/21 13:15 BP 121/89 01/12/21 13:15 Pulse Ox 90 01/12/21 13:41 TS Medications Medications Home Medications aspirin 81 mg tablet,delayed release 81 mg PO DAILY 12/04/19 [History Confirmed 01/11/21] fluticasone fur. 100 mcg-umeclid 62.5 mcg-vilant 25 mcg inhalat.powder 1 inh INHALATION DAILY #60 ea 09/11/20 [Rx Confirmed 01/11/21] hydralazine 100 mg tablet 100 mg PO TID 30 Days #270 tab 09/22/20 [Rx Confirmed 01/11/21] albuterol sulfate 90 mcg/actuation aerosol inhaler 2 puff INHALATION QID PRN #18 g 10/15/20 [Rx Confirmed 01/11/21] alirocumab 75 mg/mL subcutaneous pen injector 75 mg SUBCUT Q14D #2 ml 10/15/20 [Rx Confirmed 01/11/21] docusate sodium 100 mg capsule 100 mg PO DAILY #30 cap 10/15/20 [Rx Confirmed 01/11/21] tramadol 50 mg tablet 50 mg PO Q6H PRN #120 tab 10/15/20 [Rx Confirmed 01/11/21] atorvastatin 80 mg tablet 80 mg PO DAILY #90 tab 11/06/20 [Rx Confirmed 01/11/21] losartan 100 mg tablet 100 mg PO DAILY #90 tab 11/19/20 [Rx Confirmed 01/11/21] thyroid (pork) 120 mg tablet 120 mg PO DAILY #90 tab 11/19/20 [Rx Confirmed 01/11/21] thyroid (pork) 15 mg tablet 15 mg PO DAILY #90 tab 11/19/20 [Rx Confirmed 01/11/21] bumetanide 2 mg tablet 2 mg PO BID tab 12/11/20 [History Confirmed 01/11/21] prednisone 20 mg tablet 20 mg PO DAILY tab 12/11/20 [History Confirmed 01/11/21] sulfamethoxazole 400 mg-trimethoprim 80 mg tablet 1 tab PO BID 12/31/20 [History Confirmed 01/11/21] levofloxacin 500 mg tablet 500 mg PO Q24H #10 tab 01/06/21 [Rx Confirmed 01/11/21] metolazone 5 mg tablet 5 mg PO DAILY #11 tab 01/06/21 [Rx Confirmed 01/11/21] ergocalciferol (vitamin D2) 1,250 mcg PO Q7D 01/11/21 [History Confirmed 01/11/21] hydralazine 50 mg PO TID 01/11/21 [History Confirmed 01/11/21] potassium chloride 20 meq PO DAILY 01/11/21 [History Confirmed 01/11/21] Active Medications Albuterol/Ipratropium (Ipratropium-Albuterol 3 Ml Neb) 3 ml INHALATION Q6H.RESPIRATORY SURAJ Last Admin: 01/12/21 08:50 Dose: 3 ml Documented by: Aspirin (Aspirin 81 Mg Ec Tablet) 81 mg PO DAILY SURAJ Last Admin: 01/12/21 09:40 Dose: 81 mg Documented by: Atorvastatin Calcium (Atorvastatin 40 Mg Tablet) 80 mg PO DAILY SURAJ Last Admin: 01/12/21 09:40 Dose: 80 mg Documented by: Benzonatate (Benzonatate 100 Mg Capsule) 100 mg PO TID PRN PRN Reason: COUGH Budesonide (Budesonide 0.5 Mg/2 Ml Neb) 0.5 mg INHALATION BID.RESPIRATORY SURAJ Last Admin: 01/12/21 08:50 Dose: 0.5 mg Documented by: Bumetanide (Bumetanide 1 Mg Tablet) 2 mg PO DAILY SURAJ Dexamethasone (Dexamethasone 4 Mg/Ml Inj) 6 mg IVP Q24H SURAJ Docusate Sodium (Docusate Sodium 100 Mg Capsule) 100 mg PO DAILY SURAJ Last Admin: 01/12/21 09:40 Dose: 100 mg Documented by: Hydralazine HCl (Hydralazine 50 Mg Tablet) 50 mg PO TID SURAJ Last Admin: 01/12/21 09:43 Dose: Not Given Documented by: Remdesivir 100 mg/ Sodium (Chloride) 100 mls @ 100 mls/hr IV Q24H SURAJ Stop: 01/15/21 18:59 Linezolid (Zyvox Premix) 600 mg in 300 mls @ 300 mls/hr IV Q12H SURAJ; Protocol Cefepime HCl 2,000 mg/ Sodium (Chloride) 50 mls @ 100 mls/hr IV Q12H SURAJ; Protocol Tocilizumab 620 mg/ Sodium (Chloride) 100 mls @ 100 mls/hr IV ONCE ONE Stop: 01/12/21 15:59 Thyroid (Thyroid 60 Mg Tablet) 135 mg PO DAILY [facility] Last Admin: 01/12/21 09:41 Dose: 135 mg Documented by: Tramadol HCl (Tramadol 50 Mg Tablet) 50 mg PO Q6H PRN PRN Reason: pain Discharge Plan Discharge Patient Disposition: Admitted As Inpatient Clinical Impression: COPD (chronic obstructive pulmonary disease), CKD (chronic kidney disease), S/P AAA repair, Pneumonia due to COVID-19 virus, Aneurysm of right iliac artery Condition: Stable Transfer Attestations Time Spent in Transfer Care*: greater than 30 min Quality Metrics Clinical Quality Measures: During this hospital stay, did patient experience: None Coding Level of Care Code Acute Consulting Solution Director for [facility] Fwd Diagnoses Pneumonia due to COVID-19 virus U07.1; J12.82 Hypoxia R09.02 CKD (chronic kidney disease) N18.9 Chronic kidney disease stage: unspecified stage S/P AAA repair Z98.890; Z86.79 Endoleak of aortic graft COPD (chronic obstructive pulmonary disease) J44.9 COPD type: unspecified COPD
[2021-01-12] MEDS: dexamethasone 4 mg/mL INJ 6 MG IVP (14:20)
[2021-01-12] MEDS: linezolid premix 600 MG/300 ML PREMIX 300 MG IV (15:59)
[2021-01-12 16:02] LABS: Hematocrit 29.3 % (42.0-52.0); Hemoglobin 9.4 g/dL (11.7-16.6)
--- NOTE | 2021-01-12 23:10 | USCV_ITS ---
Matthew Chong Age: 75 Gender: M : 1945 Exam Date: 01/12/2021 06:18 Ordering Phys: Joy Valencia MD Technologist: Exam Location: [facility] [place] Indication: ELAVATED D DIMER HISTORY: Lower extremity edema. PROCEDURES: The venous duplex Doppler examination of both lower extremities was performed in the standard fashion. The following venous structures were evaluated: common femoral vein, profunda vein, proximal portion of the greater saphenous vein, superficial femoral vein, and the popliteal vein. In addition, the posterior tibial and peroneal trunk were evaluated. Bilaterally, the common femoral, superficial femoral, profunda femoral, popliteal, posterior tibial, greater saphenous veins, and the peroneal trunk were identified and interrogated in the standard fashion. These veins were found to be easily compressible with spontaneous blood flow. No evidence of insufficiency or thrombus noted. FINDINGS: Normal 2-D Doppler and augmentation and compressibility throughout the lower extremity venous structures. Additional imaging through the proximal calf veins also reveals no thrombus. Limited evaluation of the greater saphenous vein is patent with no thrombus.. CONCLUSIONS No evidence of DVT in the above-mentioned identifiable veins. No evidence of any superficial vein thrombosis in the proximal segments of the greater saphenous veins Dr Joyce Canas MD [facility] (Electronically Signed) Final Date: 12 January 2021 23:17 S
[2021-01-14 06:31] LABS: Osmolality Urine 481 mOsm/kg (50-1200)
== END 2021-01-12 17:11 | disposition admitted as inpatient to this hospital (09) ==
PROVIDERS: Emergency Medicine; Family Medicine; Student in an Organized Health Care Education/Training Program; Emergency Provider Family Medicine; PCP Nurse Practitioner
DX: U07.1 COVID-19 (principal); J12.82 Pneumonia due to coronavirus disease 2019; J44.9 Chronic obstructive pulmonary disease, unspecified; I12.9 Hypertensive chronic kidney disease with stage 1 through stage 4 chronic kidney disease, or unspecified chronic kidney disease; N18.9 Chronic kidney disease, unspecified; E78.2 Mixed hyperlipidemia; Z87.891 Personal history of nicotine dependence; I72.3 Aneurysm of iliac artery; R60.0 Localized edema
CPT/HCPCS: 36415; 36600; 51702; 71045; 71250; 74176; 80051; 80053; 81001; 82330; 82436; 82570; 82805; 83605; 83880; 83935; 84133; 84145; 84300; 84484; 85014; 85018; 85025; 85378; 85610; 85730; 85999; 86140; 87040; 93005; 93306; 93970; 94640; 94660; 96365; 96367; 96368; 96372; 96375; 96376; 99291; J0456; J0692; J0696; J1100; J1650; J2020; J3262; J7050; J7626

== ENCOUNTER → 2021-03-02 13:18 | Outpatient (BNVA) | payer MEDICARE, MEDICAID, SELFPAY | PROVIDERS: PCP Nurse Practitioner; Visit Provider Nurse Practitioner | DX: E55.9 Vitamin D deficiency, unspecified (principal); N18.9 Chronic kidney disease, unspecified; E03.9 Hypothyroidism, unspecified; J44.9 Chronic obstructive pulmonary disease, unspecified; E78.2 Mixed hyperlipidemia | CPT/HCPCS: 80053; 82306; 84443; 85025 ==

== ENCOUNTER → 2021-03-11 10:12 | Outpatient (BNVA) | payer MEDICARE, MEDICAID, SELFPAY | PROVIDERS: PCP Nurse Practitioner; Visit Provider Internal Medicine Nephrology | DX: N18.9 Chronic kidney disease, unspecified (principal) | CPT/HCPCS: 80069; 82043 ==

== ENCOUNTER → 2021-03-15 10:17 | Outpatient (BNVA) | payer MEDICARE, MEDICAID, SELFPAY | PROVIDERS: PCP Nurse Practitioner; Visit Provider Nurse Practitioner | DX: E87.6 Hypokalemia (principal) | CPT/HCPCS: 80053; 85025 ==

== ENCOUNTER → 2021-03-22 09:13 | Outpatient (BNVA) | payer MEDICARE, MEDICAID, SELFPAY | PROVIDERS: PCP Nurse Practitioner; Visit Provider Nurse Practitioner | DX: E87.6 Hypokalemia (principal) | CPT/HCPCS: 80048 ==

== ENCOUNTER → 2021-04-08 14:47 | Outpatient (BNVA) | payer MEDICARE, MEDICAID, SELFPAY | PROVIDERS: PCP Nurse Practitioner; Visit Provider Internal Medicine Pulmonary Disease | DX: Z86.16 Personal history of COVID-19 (principal); J44.9 Chronic obstructive pulmonary disease, unspecified | CPT/HCPCS: 71046 ==

== ENCOUNTER → 2021-04-21 11:01 | Outpatient (BNVA) | payer MEDICARE, MEDICAID, SELFPAY | PROVIDERS: PCP Nurse Practitioner; Visit Provider Nurse Practitioner | DX: R30.0 Dysuria (principal) | CPT/HCPCS: 81003 ==

== ENCOUNTER → 2021-06-07 10:17 | Outpatient (BNVA) | payer MEDICARE, MEDICAID, SELFPAY | PROVIDERS: PCP Nurse Practitioner; Visit Provider Nurse Practitioner | DX: N18.9 Chronic kidney disease, unspecified (principal); E55.9 Vitamin D deficiency, unspecified; J44.9 Chronic obstructive pulmonary disease, unspecified; R63.4 Abnormal weight loss; E03.9 Hypothyroidism, unspecified; M51.36 Other intervertebral disc degeneration, lumbar region; I50.9 Heart failure, unspecified; E78.2 Mixed hyperlipidemia; R00.0 Tachycardia, unspecified; I12.9 Hypertensive chronic kidney disease with stage 1 through stage 4 chronic kidney disease, or unspecified chronic kidney disease | CPT/HCPCS: 80053; 80069; 82306; 82310; 83970; 84443; 85025 ==

== ENCOUNTER → 2021-06-09 10:09 | Outpatient (BNVA) | payer MEDICARE, MEDICAID, SELFPAY | PROVIDERS: PCP Nurse Practitioner; Visit Provider Internal Medicine Nephrology | DX: N18.9 Chronic kidney disease, unspecified (principal) | CPT/HCPCS: 82043 ==

== ENCOUNTER 2021-06-28 08:46 | Outpatient (CLI) | payer MEDICARE, MEDICAID, SELFPAY ==
--- NOTE | 2021-06-28 09:30 | USCV_ITS ---
Matthew Chong Age: 75 Gender: M : 1945 Exam Date: 06/28/2021 09:15 Ordering Phys: Lex Ahumada MD (Andy) ([email or web address]) Technologist: KALI Exam Location: [facility] [place] Indication: hx aaa stent HISTORY: Diameter (cm) AP x Transverse x Length Velocity (cm/s) Waveform Prox Aorta: 1.96 x 2.85 x Biphasic Mid Aorta: 2.54 x 3.52 x Biphasic Distal Aorta: 1.41 x 3.32 x Biphasic Right Iliac Prox: 1.06 x 1.63 x Biphasic Left Iliac Prox: 1.32 x 1.54 x Biphasic Stent Prox Landing 3.08 x 2.65 x 76.20 Aneurysmal Sac Max 4.06 x 4.50 x 72.10 Lt Lat Sac Dim 1.20 Rt Lat Sac Dim 1.41 Stent Dist Landing 2.87 x 3.05 x 108.10 Right Iliac Stent 1.56 x 1.52 x 105.30 Left Iliac Stent 1.41 x 1.63 x 95.60 Right Renal Art Left Renal Art FINDINGS: normal aaa stent no flow in aaa sac Patent aortic stent graft Patent iliac stent graft Normal Doppler flow velocities CONCLUSIONS 1. Patent aortic and iliac stent grafts 2. Aneurysm sac measured 4.06 x 4.5 cm at its maximum diameter. 3. No evidence of any endoleak Compared to the study from 05/21/2020, there may not be a significant change in the aneurysm sac The quality of the study is suboptimal Dr Joyce Canas MD [facility] (Electronically Signed) Final Date: 05 July 2021 18:24 S
== END 2021-06-28 08:47 | disposition home or self-care (01) ==
LOC: RAD 08:47
PROVIDERS: PCP Nurse Practitioner; Visit Provider Thoracic Surgery (Cardiothoracic Vascular Surgery)
DX: I71.4 Abdominal aortic aneurysm, without rupture (principal)
CPT/HCPCS: 93978

== ENCOUNTER 2021-07-01 12:21 | Outpatient (CLI) | payer MEDICARE, MEDICAID, SELFPAY ==
--- NOTE | 2021-07-01 | CT_ITS ---
WS: [id number] CT CHEST TECHNIQUE: Noncontrast CT of the chest with coronal and sagittal reformatted images. CLINICAL INFORMATION: COPD COMPARISON: January 12, 2021 DLP: [address] scans at [facility] use at least one of these dose optimization techniques: automated e xposure control; mA and/or kV adjustment per patient size (includes targeted exams where dose is matc hed to clinical indication); or iterative reconstruction. FINDINGS: Advanced chronic emphysematous changes. No acute pulmonary infiltrates. No focal pneumonia or pleural fluid. Previously described RIGHT pleural effusion has resolved. Hazy groundglass infiltrates have r esolved. Slight subsegmental atelectasis in the RIGHT middle lobe and RIGHT lower lobe. No focal pneu monia or pleural fluid. Bulla formation in the upper lungs. Normal caliber thoracic aorta. Aortic calcification. Coronary calcification. No mediastinal or hilar lymphadenopathy. No axillary lymphadenopathy. Normal GE junction. Adrenal glands are normal. Fatty at rophy of the pancreas partially visualized. Hypertrophic changes thoracic spine. CT/CT chest wo con [id number] IMPRESSION: 1. Advanced chronic emphysematous changes. No acute pulmonary infiltrates toda y. 2. Slight subsegmental atelectasis in the RIGHT middle lobe and RIGHT lower lo be. 3. No mediastinal or hilar lymphadenopathy. 4. Mild aortic calcification. Coronary calcification. 5. No other acute findings.
[2021-07-01] MEDS: iohexol 300 mg/mL 50 mL Btl PO (12:56)
--- NOTE | 2021-07-01 14:00 | CT_ITS ---
WS: [id number] CT ABDOMEN AND PELVIS TECHNIQUE: Noncontrast CT of the abdomen and pelvis with coronal and sagittal reformatted images. CLINICAL INFORMATION: J44.9 - Chronic obstructive pulmonary disease, unspecified COMPARISON: 01/12/2021 and 11/27/2020 DLP: 1005.[address] scans at [facility] [place] use at least one of these dose optimization techniques: automated e xposure control; mA and/or kV adjustment per patient size (includes targeted exams where dose is matc hed to clinical indication); or iterative reconstruction. CT ABDOMEN AND PELVIS: Prior postoperative changes aortic endograft repair with biiliac extension. Again seen is the distal abdominal aorta pseudoaneurysm measures 3.0 x 4.0 cm stable compared to previous. Lobulated RIGHT low er pelvic pseudoaneurysm with junctional endoleak is increased in size. This involves the external il iac artery today measuring 6.8 x 4.8 x 6.6 cm compared to 5.5 x 4.3 x 4.6 cm previous. Associated inc reased attenuation blood products similar to the prior examinations consistent with active endoleak o r contained rupture unchanged. 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 Moderate RIGHT hydronephrosis with RIGHT ureterectasis due to compression of the distal RIGHT ureter by the pseudoaneurysm. This appears slightly progressed compared to previous. Sigmoid diverticulosis. No evidence of acute diverticulitis. Noncontrast liver is normal. Normal gall bladder. Adrenal glands are normal. No hydronephrosis in the LEFT kidney. Small esophageal hiatal her renny. Subsegmental atelectasis in the RIGHT lower lobe. Moderate spondylitic changes lumbar spine. IMPRESSION: 1. Prior aortic endograft repair with biiliac extension. 2. Again seen is interval increase in size of the RIGHT external iliac pseudoaneurysm today measurin g 6.8 x 4.8 x 6.6 cm compared to 5.5 x 4.3 x 4.6 cm cm previous. High attenuation blood products cons istent with active endoleak or contained rupture similar to the prior examination. 3. 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 4. 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 5. Moderate RIGHT hydronephrosis with RIGHT ureterectasis is slightly progressed. Pseudoaneurysm com presses the distal RIGHT ureter in the pelvis.
== END 2021-07-01 12:22 | disposition home or self-care (01) ==
LOC: RAD 12:23
PROVIDERS: PCP Nurse Practitioner; Visit Provider Nurse Practitioner
DX: J44.9 Chronic obstructive pulmonary disease, unspecified (principal); R63.4 Abnormal weight loss; N18.9 Chronic kidney disease, unspecified; I50.9 Heart failure, unspecified; E87.6 Hypokalemia; I71.4 Abdominal aortic aneurysm, without rupture; N13.30 Unspecified hydronephrosis; I72.3 Aneurysm of iliac artery; J98.11 Atelectasis; I25.10 Atherosclerotic heart disease of native coronary artery without angina pectoris
CPT/HCPCS: 71250; 74176

== ENCOUNTER → 2021-07-08 11:44 | Outpatient (BNVA) | payer MEDICARE, MEDICAID, SELFPAY | PROVIDERS: PCP Nurse Practitioner; Visit Provider Nurse Practitioner | DX: N18.9 Chronic kidney disease, unspecified (principal); Z98.890 Other specified postprocedural states; Z86.79 Personal history of other diseases of the circulatory system; E78.5 Hyperlipidemia, unspecified; E03.9 Hypothyroidism, unspecified; R00.0 Tachycardia, unspecified; E55.9 Vitamin D deficiency, unspecified | CPT/HCPCS: 80053; 84443; 85025 ==

== ENCOUNTER → 2021-07-12 10:12 | Outpatient (BNVA) | payer MEDICARE, MEDICAID, SELFPAY | PROVIDERS: PCP Nurse Practitioner; Visit Provider Internal Medicine Cardiovascular Disease | DX: R55 Syncope and collapse (principal); Q28.8 Other specified congenital malformations of circulatory system; I11.0 Hypertensive heart disease with heart failure; I50.9 Heart failure, unspecified; Z95.828 Presence of other vascular implants and grafts; R25.1 Tremor, unspecified; E78.2 Mixed hyperlipidemia; Z87.891 Personal history of nicotine dependence | CPT/HCPCS: 99214 ==

== ENCOUNTER → 2021-07-22 08:38 | Outpatient (BNVA) | payer MEDICARE, MEDICAID, SELFPAY | PROVIDERS: PCP Nurse Practitioner; Visit Provider Thoracic Surgery (Cardiothoracic Vascular Surgery) | DX: N18.9 Chronic kidney disease, unspecified (principal); Z87.891 Personal history of nicotine dependence | CPT/HCPCS: 99213 ==

== ENCOUNTER → 2021-07-28 11:26 | Outpatient (BNVA) | payer MEDICARE, MEDICAID, SELFPAY | PROVIDERS: PCP Nurse Practitioner; Visit Provider Nurse Practitioner | DX: I11.0 Hypertensive heart disease with heart failure (principal); E03.9 Hypothyroidism, unspecified; I50.9 Heart failure, unspecified | CPT/HCPCS: 80048; 84443 ==

== ENCOUNTER 2021-08-04 11:20 | Outpatient (CLI) | payer MEDICARE, MEDICAID, SELFPAY ==
[2021-08-04 12:13] LABS: Basophils % 0.1 %; Eosinophils # 0.1 10^3/uL (0.0-0.8); Eosinophils % 0.6 %; Hematocrit 30.8 % (42.0-52.0); Hemoglobin 10.3 g/dL (11.7-16.6); Lymphocytes # 0.7 10^3/uL (0.8-4.8); Lymphocytes % 5.1 %; Mean Corpuscular HGB Conc 33.4 g/dL (30.0-36.0); Mean Corpuscular Hemoglobin 27.7 pg (28.0-34.0); Mean Corpuscular Volume 82.8 fl (80-94); Mean Platelet Volume 9.8 fL (7.4-10.4); Monocytes # 0.3 10^3/uL (0.2-0.9); Monocytes % 2.1 %; Neutrophils # 13.09 10^3/uL (1.8-7.7); Neutrophils % 89.7 %; Nucleated Red Blood Cells % 0 %; Platelet Count 197 10^3/cmm (130-400); Red Blood Count 3.72 10^6/uL (4.1-5.3); Red Cell Distribution Width 16.7 % (12.1-15.1); White Blood Count 14.6 10^3/uL (4.0-10.0)
[2021-08-04 12:31] LABS: Alanine Aminotransferase 26 U/L (0-41); Albumin Level 3.1 g/dL (3.5-5.2); Alkaline Phosphatase 107 IU/L (40-130); Anion Gap 20.3 (5-19); Aspartate Amino Transferase 20 U/L (0-40); Blood Urea Nitrogen 80 mg/dL (8-23); Calcium 9.2 mg/dL (8.5-10.5); Carbon Dioxide 26 mmol/L (22-29); Chloride 88 mmol/L (98-107); Globulin 3.1 g/dL (1.3-4.6); Glucose 126 mg/dL (65-115); Osmolality Calculated 298 mOsm/kg (285-295); Potassium 3.3 mmol/L (3.5-5.1); Sodium 131 mmol/L (136-145); Total Bilirubin 0.5 mg/dL (0.15-1.2); Total Protein 6.2 g/dL (6.6-8.7)
[2021-08-05 10:21] LABS: Vitamin B12 555 pg/mL (232-1245)
== END 2021-08-04 11:21 | disposition home or self-care (01) ==
PROVIDERS: PCP Nurse Practitioner; Visit Provider Internal Medicine Hematology & Oncology
DX: D72.829 Elevated white blood cell count, unspecified (principal)
CPT/HCPCS: 36415; 80053; 82607; 85025

== ENCOUNTER → 2021-08-17 09:08 | Outpatient (BNVA) | payer MEDICARE, MEDICAID, SELFPAY | PROVIDERS: PCP Nurse Practitioner; Visit Provider Internal Medicine Nephrology | DX: N18.9 Chronic kidney disease, unspecified (principal); E55.9 Vitamin D deficiency, unspecified | CPT/HCPCS: 80069; 82043; 82306; 82310; 83970; 85025 ==

== ENCOUNTER → 2021-08-27 09:43 | Outpatient (BNVA) | payer MEDICARE, MEDICAID, SELFPAY | PROVIDERS: PCP Nurse Practitioner; Visit Provider Internal Medicine Nephrology | DX: N18.9 Chronic kidney disease, unspecified (principal); N13.5 Crossing vessel and stricture of ureter without hydronephrosis | CPT/HCPCS: 80048; 81003; 87077; 87086; 87184 ==

== ENCOUNTER 2021-09-09 11:08 | Oncology outpatient (recurring) (ONCR) | payer MEDICARE, MEDICAID, SELFPAY ==
[2021-09-09 11:37] LABS: Basophils % 0.2 %; Eosinophils # 0.1 10^3/uL (0.0-0.8); Eosinophils % 0.5 %; Hematocrit 33.9 % (42.0-52.0); Hemoglobin 10.8 g/dL (11.7-16.6); Lymphocytes # 2.1 10^3/uL (0.8-4.8); Lymphocytes % 15.8 %; Mean Corpuscular HGB Conc 31.9 g/dL (30.0-36.0); Mean Corpuscular Hemoglobin 28.1 pg (28.0-34.0); Mean Corpuscular Volume 88.3 fl (80-94); Mean Platelet Volume 9.2 fL (7.4-10.4); Monocytes # 0.6 10^3/uL (0.2-0.9); Monocytes % 4.4 %; Neutrophils # 9.83 10^3/uL (1.8-7.7); Neutrophils % 74.6 %; Nucleated Red Blood Cells # 0.1 /100WBC; Nucleated Red Blood Cells % 0.5 %; Platelet Count 238 10^3/cmm (130-400); Red Blood Count 3.84 10^6/uL (4.1-5.3); Red Cell Distribution Width 19.4 % (12.1-15.1); White Blood Count 13.2 10^3/uL (4.0-10.0)
== END 2021-09-21 23:59 | disposition home or self-care (01) ==
LOC: ONCMED 11:09
PROVIDERS: PCP Nurse Practitioner; Visit Provider Internal Medicine Hematology & Oncology
DX: D72.828 Other elevated white blood cell count (principal); Z95.828 Presence of other vascular implants and grafts; I50.9 Heart failure, unspecified; M51.36 Other intervertebral disc degeneration, lumbar region; Z86.16 Personal history of COVID-19
CPT/HCPCS: 85025; 99204; 99214; 99999

== ENCOUNTER 2021-09-10 14:10 | Outpatient (CLI) | payer MEDICARE, MEDICAID, SELFPAY ==
--- NOTE | 2021-09-10 14:31 | CT_ITS ---
WS: [id number] CT ANGIOGRAPHY abdomen and pelvis, with and without IV contrast. HISTORY: ABDOMINAL AORTIC ANEURYSM TECHNIQUE: CT angiogram performed with and without contrast. CT angiogram is performed during IV inje ction. Reformation and MIP images reviewed. All CT scans at [facility] use at least one of the se dose optimization techniques: automated exposure control; mA and/or kV adjustment per patient size (includes targeted exams where dose is matched to clinical indication); or iterative reconstruction. CONTRAST: Visipaque 320; 95 mL IV. DLP: 2657.95 mGy.cm COMPARISON: 07/01/2021, 01/12/2021 Chronic emphysematous changes at the lung bases. Groundglass areas of attenuation are stable. No prog ression. Mild enlargement the heart. Small hiatal hernia. Abdominal aorta: Patient is status post endovascular graft repair of the abdominal aorta with bilater al iliac extensions. There is widening and disruption of the intimal calcifications involving the dis harley eek aortic aneurysm. This is probably a pseudoaneurysm measuring 4.1 x 2.9 cm. No adjacent acu te bleeding or hematoma. Very similar to the prior examinations. This pseudoaneurysm and extends just to the LEFT of midline. The graft is patent. Markedly dilated eek RIGHT common iliac artery. Ther e is a very large pseudoaneurysm involving the RIGHT common iliac artery with extension to the music mixer al iliac artery and into the iliopsoas muscle. There is no fat plane the iliopsoas from th e aneurysm. The most recent study was done without contrast. On today's examination with and without contrast the areas of increased density within the pseudoaneurysm are similar on both runs. There is a new focus of air measuring about 10 mm within the soft tissue external to the graft. Comparing prio r examinations no obvious increase in size. LEFT iliac artery is patent. Normal lumen size. Extensive atherosclerotic changes in the femoral arteries. Liver, spleen, pancreas and gallbladder are unremarkable and unchanged since prior examinations. No a drenal mass. Kidneys are atrophic bilaterally. RIGHT ureteral stent has been placed since the prior e xamination. There is less hydronephrosis. There is still a very small amount of renal and ureteral di latation. The stent is being displaced anterior medial to the large pseudoaneurysm. Bilateral renal c ysts and cortical atrophy. No ascites or adenopathy. Sigmoid diverticula without acute diverticulitis . Urinary bladder is moderately distended. Mild encroachment into the bladder by the prostate gland. CT/CT angio abdomen pelvis [id number] IMPRESSION: 1. Status post aortic endograft repair with bilateral iliac extensions. 2. 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 A s compared to prior examinations no obvious increase in size. Pseudoaneurysm ex tends into the iliopsoas muscle on the RIGHT. The increased density within the pseudoaneurysm is similar on both the pre and postcontrast. 3. New focus of air measuring 10 mm just external to the graft over the RIGHT pseudoaneurysm. Highly suspicious for infected graft based upon this appearance . No aortoenteric fistula noted but the small bowel is closely associated with a pseudoaneurysm. 4. 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 5. Interval placement of a RIGHT ureteral stent with minimal residual hydronep hrosis since 07/01/2021. Notified ELBERT DONNELLY MD at 09/13/2021 8:35 AM.
[2021-09-10] MEDS: iodixanol 320 mg/mL 100mL Btl IV (15:00)
== END 2021-09-10 14:11 | disposition home or self-care (01) ==
LOC: RAD 14:16
PROVIDERS: PCP Nurse Practitioner; Visit Provider Thoracic Surgery (Cardiothoracic Vascular Surgery)
DX: I71.4 Abdominal aortic aneurysm, without rupture (principal)
CPT/HCPCS: 74174

== ENCOUNTER → 2021-09-13 10:31 | Outpatient (BNVA) | payer MEDICARE, MEDICAID, SELFPAY | PROVIDERS: PCP Nurse Practitioner; Visit Provider Internal Medicine Nephrology | DX: N18.9 Chronic kidney disease, unspecified (principal) | CPT/HCPCS: 80048; 82043 ==

== ENCOUNTER → 2021-09-16 10:25 | Outpatient (BNVA) | payer MEDICARE, MEDICAID, SELFPAY | PROVIDERS: PCP Nurse Practitioner; Visit Provider Nurse Practitioner | DX: R30.0 Dysuria | CPT/HCPCS: 81000 ==

== ENCOUNTER 2021-10-07 14:11 | Outpatient (CLI) | payer MEDICARE, MEDICAID, SELFPAY ==
--- NOTE | 2021-10-07 15:00 | XR_ITS ---
WS: [id number] KUB, AP view, 10/07/2021 Clinical Data: HYDRONEPHROSIS Comparison: KUB, 11/27/2020 Findings: No abnormal intraabdominal masses or calcifications are seen. There is no dilatated small bowel or ev idence of obstruction. There is a right ureteral stent in good position. There is an aortic bi-iliac stent. There is a large amount of fecal material in the ascending and transverse colons. There is a levoscoliosis with osteo arthritis of the lumbar spine. XR/XR KUB [id number] Impression: 1. Right ureteral stent. 2. Aortoiliac stent.
== END 2021-10-07 14:12 | disposition home or self-care (01) ==
LOC: RAD 14:13
PROVIDERS: PCP Nurse Practitioner; Visit Provider Urology
DX: N13.30 Unspecified hydronephrosis (principal); Z96.0 Presence of urogenital implants; N13.5 Crossing vessel and stricture of ureter without hydronephrosis
CPT/HCPCS: 74018; 81003; 99213

== ENCOUNTER 2021-10-13 11:45 | Oncology outpatient (recurring) (ONCR) | payer MEDICARE, MEDICAID, SELFPAY ==
[2021-10-13 11:59] LABS: Basophils % 0.3 %; Eosinophils # 0.1 10^3/uL (0.0-0.8); Eosinophils % 0.4 %; Hematocrit 36.9 % (42.0-52.0); Hemoglobin 11.9 g/dL (11.7-16.6); Lymphocytes % 16.6 %; Mean Corpuscular HGB Conc 32.2 g/dL (30.0-36.0); Mean Corpuscular Hemoglobin 29.8 pg (28.0-34.0); Mean Corpuscular Volume 92.3 fl (80-94); Mean Platelet Volume 9.2 fL (7.4-10.4); Monocytes # 0.8 10^3/uL (0.2-0.9); Monocytes % 6.5 %; Neutrophils # 8.82 10^3/uL (1.8-7.7); Neutrophils % 71.6 %; Nucleated Red Blood Cells % 0.2 %; Platelet Count 213 10^3/cmm (130-400); Red Cell Distribution Width 18.5 % (12.1-15.1); White Blood Count 12.3 10^3/uL (4.0-10.0)
[2021-10-13 12:34] LABS: Alanine Aminotransferase 22 U/L (0-41); Albumin Level 3.5 g/dL (3.5-5.2); Alkaline Phosphatase 129 IU/L (40-130); Anion Gap 16.3 (5-19); Aspartate Amino Transferase 14 U/L (0-40); Blood Urea Nitrogen 61 mg/dL (8-23); Calcium 9.2 mg/dL (8.5-10.5); Carbon Dioxide 29 mmol/L (22-29); Chloride 90 mmol/L (98-107); Globulin 3.3 g/dL (1.3-4.6); Glucose 156 mg/dL (65-115); Osmolality Calculated 294 mOsm/kg (285-295); Potassium 3.3 mmol/L (3.5-5.1); Sodium 132 mmol/L (136-145); Total Bilirubin 0.3 mg/dL (0.15-1.2); Total Protein 6.8 g/dL (6.6-8.7)
== END 2021-10-21 23:59 | disposition home or self-care (01) ==
PROVIDERS: PCP Nurse Practitioner; Visit Provider Internal Medicine Hematology & Oncology
DX: D72.828 Other elevated white blood cell count (principal); N18.9 Chronic kidney disease, unspecified; Z87.448 Personal history of other diseases of urinary system
CPT/HCPCS: 80053; 85025; 99214

== ENCOUNTER 2021-11-02 09:01 | Outpatient (CLI) | payer MEDICARE, MEDICAID, SELFPAY ==
--- NOTE | 2021-11-02 09:00 | XR_ITS ---
WS: [id number] KUB, AP view, 11/02/2021 Clinical Data: Obstruction of Right Ureter Comparison: KUB, 10/07/2021. Findings: No abnormal intraabdominal masses or calcifications are seen. There is no dilatated small bowel or ev idence of obstruction. The right ureteral stent remains in good position. There is a large amount of fecal material in the p roximal colon. The aortic biiliac stent remains in the same position. There is a levoscoliosis with o steoarthritis of the lumbar spine. XR/XR KUB [id number] Impression: 1. Right ureteral stent. 2. Aortoiliac stent.
== END 2021-11-02 09:02 | disposition home or self-care (01) ==
LOC: RAD 09:02
PROVIDERS: PCP Nurse Practitioner; Visit Provider Urology
DX: I11.0 Hypertensive heart disease with heart failure (principal); I50.9 Heart failure, unspecified; F17.200 Nicotine dependence, unspecified, uncomplicated; N13.30 Unspecified hydronephrosis; N13.5 Crossing vessel and stricture of ureter without hydronephrosis
CPT/HCPCS: 74018; 81003; 99213; 99214

== ENCOUNTER → 2021-11-24 10:39 | Outpatient (BNVA) | payer MEDICARE, MEDICAID, SELFPAY | PROVIDERS: PCP Nurse Practitioner; Visit Provider Nurse Practitioner | DX: J44.9 Chronic obstructive pulmonary disease, unspecified (principal); E78.2 Mixed hyperlipidemia; I50.9 Heart failure, unspecified; E55.9 Vitamin D deficiency, unspecified; E03.9 Hypothyroidism, unspecified; N40.0 Benign prostatic hyperplasia without lower urinary tract symptoms; M51.36 Other intervertebral disc degeneration, lumbar region | CPT/HCPCS: 80053; 80061; 82306; 84439; 84443 ==

== ENCOUNTER → 2021-12-17 09:23 | Outpatient (BNVA) | payer MEDICARE, MEDICAID, SELFPAY | PROVIDERS: PCP Nurse Practitioner; Visit Provider Internal Medicine Nephrology | DX: N18.9 Chronic kidney disease, unspecified (principal) | CPT/HCPCS: 80048; 82043; 85025 ==

== ENCOUNTER 2021-12-28 08:59 | Outpatient (CLI) | payer MEDICARE, MEDICAID, SELFPAY ==
--- NOTE | 2021-12-28 09:08 | XRR_ITS ---
PROCEDURE INFORMATION: Exam: XR Abdomen Exam date and time: 12/28/2021 9:11 AM Age: 76 years old Clinical indication: Device placement; Non-vascular device; Prior surgery; Surgery type: Kidney stent, aortic abdomen stent; Additional info: N13.30 - unspecified hydronephrosis, kub@ 9:30-appt to follow TECHNIQUE: Imaging protocol: Radiologic exam of the abdomen. Views: Frontal supine view of the abdomen. 1 View. Total images: 1 COMPARISON: CR XR KUB [id number] 11/02/2021 9:12 AM FINDINGS: Heart/Mediastinum: Extensive endovascular stents within the abdominal aorta and extending into iliac arteries unchanged from prior exam. Gastrointestinal tract: Bowel gas pattern is nondistended and nonobstructive. Organs: A double-J right ureteral stent is in place and appears appropriately positioned within the right renal pelvis and urinary bladder. No renal, ureteral, nor bladder calculi detected. Bones/joints: Spinal degenerative changes are evident. Mild marginal osteophytes are noted. XR/XR KUB [id number] IMPRESSION: 1. A double-J right ureteral stent is in place and appears appropriately positioned within the right renal pelvis and urinary bladder. 2. Extensive endovascular stents within the abdominal aorta and extending into iliac arteries unchanged from prior exam. 3. No renal, ureteral, nor bladder calculi detected.
== END 2021-12-28 09:00 | disposition home or self-care (01) ==
LOC: RAD 09:01
PROVIDERS: PCP Nurse Practitioner; Visit Provider Urology
DX: N13.30 Unspecified hydronephrosis (principal); N13.5 Crossing vessel and stricture of ureter without hydronephrosis; Z96.0 Presence of urogenital implants
CPT/HCPCS: 52310; 74018; 81003; 99213

== ENCOUNTER 2022-01-18 12:01 | Oncology outpatient (recurring) (ONCR) | payer MEDICARE, MEDICAID, SELFPAY ==
[2022-01-18 12:36] LABS: Basophils # 0.1 10^3/uL (0.0-0.1); Basophils % 0.5 %; Eosinophils # 0.1 10^3/uL (0.0-0.8); Eosinophils % 1.1 %; Hematocrit 35.4 % (42.0-52.0); Hemoglobin 11.7 g/dL (11.7-16.6); Lymphocytes # 2.9 10^3/uL (0.8-4.8); Lymphocytes % 26.1 %; Mean Corpuscular HGB Conc 33.1 g/dL (30.0-36.0); Mean Corpuscular Hemoglobin 30.2 pg (28.0-34.0); Mean Corpuscular Volume 91.5 fl (80-94); Mean Platelet Volume 8.7 fL (7.4-10.4); Monocytes % 9.2 %; Neutrophils # 6.76 10^3/uL (1.8-7.7); Neutrophils % 61.3 %; Nucleated Red Blood Cells % 0.2 %; Platelet Count 226 10^3/cmm (130-400); Red Blood Count 3.87 10^6/uL (4.1-5.3)
[2022-01-18 12:51] LABS: Alanine Aminotransferase 18 U/L (0-41); Albumin Level 3.3 g/dL (3.5-5.2); Alkaline Phosphatase 125 U/L (40-130); Aspartate Amino Transferase 15 U/L (0-40); Calcium 9.8 mg/dL (8.5-10.5); Carbon Dioxide 33 mmol/L (22-29); Chloride 85 mmol/L (98-107); Globulin 3.2 g/dL (1.3-4.6); Glucose 109 mg/dL (65-115); Osmolality Calculated 302 mOsm/kg (285-295); Sodium 133 mmol/L (136-145); Total Bilirubin 0.3 mg/dL (0.15-1.2); Total Protein 6.5 g/dL (6.6-8.7)
[2022-01-18 12:52] LABS: Blood Urea Nitrogen 85 mg/dL (8-23)
[2022-01-19 15:36] LABS: Leukemia Profile (BBPL) See Report; Lymphoma Profile (BBPL) See Report
== END 2022-01-21 23:59 | disposition home or self-care (01) ==
PROVIDERS: Nurse Practitioner Family; PCP Nurse Practitioner; Visit Provider Internal Medicine Hematology & Oncology
DX: D72.820 Lymphocytosis (symptomatic) (principal); E87.6 Hypokalemia; N18.9 Chronic kidney disease, unspecified; I12.9 Hypertensive chronic kidney disease with stage 1 through stage 4 chronic kidney disease, or unspecified chronic kidney disease; E87.1 Hypo-osmolality and hyponatremia; Z79.899 Other long term (current) drug therapy; Z87.891 Personal history of nicotine dependence
CPT/HCPCS: 36415; 80053; 85025; 88184; 88185; 99214

== ENCOUNTER 2022-02-16 12:34 | Oncology outpatient (recurring) (ONCR) | payer MEDICARE, MEDICAID, SELFPAY ==
[2022-02-16 12:53] LABS: Basophils % 0.3 %; Eosinophils % 0.2 %; Hematocrit 35.4 % (42.0-52.0); Hemoglobin 11.9 g/dL (11.7-16.6); Lymphocytes # 1.7 10^3/uL (0.8-4.8); Mean Corpuscular HGB Conc 33.6 g/dL (30.0-36.0); Mean Corpuscular Hemoglobin 30.2 pg (28.0-34.0); Mean Corpuscular Volume 89.8 fl (80-94); Mean Platelet Volume 8.2 fL (7.4-10.4); Monocytes # 0.6 10^3/uL (0.2-0.9); Monocytes % 4.8 %; Neutrophils # 10.24 10^3/uL (1.8-7.7); Neutrophils % 79.8 %; Nucleated Red Blood Cells % 0 %; Platelet Count 215 10^3/cmm (130-400); Red Blood Count 3.94 10^6/uL (4.1-5.3); Red Cell Distribution Width 15.8 % (12.1-15.1); White Blood Count 12.8 10^3/uL (4.0-10.0)
[2022-02-16 13:34] LABS: 25 Hydroxy Vitamin D 48 ng/mL (30-100); Alanine Aminotransferase 17 U/L (0-41); Albumin Level 3.3 g/dL (3.5-5.2); Alkaline Phosphatase 122 U/L (40-130); Anion Gap 16.7 (5-19); Aspartate Amino Transferase 13 U/L (0-40); Blood Urea Nitrogen 76 mg/dL (8-23); Calcium 9.5 mg/dL (8.5-10.5); Carbon Dioxide 30 mmol/L (22-29); Chloride 88 mmol/L (98-107); Globulin 3.4 g/dL (1.3-4.6); Glucose 180 mg/dL (65-115); Osmolality Calculated 299 mOsm/kg (285-295); Potassium 3.7 mmol/L (3.5-5.1); Sodium 131 mmol/L (136-145); Thyroid Stimulating Hormone 2.32 uIU/mL (0.27-4.20); Total Bilirubin 0.3 mg/dL (0.15-1.2); Total Protein 6.7 g/dL (6.6-8.7)
[2022-02-17 12:20] LABS: Estmated Average Glucose 140; Hemoglobin A1C 6.5 % (4.0-6.0)
== END 2022-02-21 23:59 | disposition home or self-care (01) ==
LOC: ONCMED 12:34
PROVIDERS: PCP Nurse Practitioner; Visit Provider Internal Medicine Hematology & Oncology
DX: E03.9 Hypothyroidism, unspecified (principal); E55.9 Vitamin D deficiency, unspecified; D72.829 Elevated white blood cell count, unspecified; R73.9 Hyperglycemia, unspecified
CPT/HCPCS: 36415; 80053; 82306; 83036; 84443; 85025

== ENCOUNTER 2022-03-16 14:35 | Outpatient (CLI) | payer MEDICARE, MEDICAID, SELFPAY ==
--- NOTE | 2022-03-16 15:45 | US_ITS ---
WS: [id number] RENAL ULTRASOUND HISTORY: ureteral obstruction COMPARISON: None available. TECHNIQUE: 2-D and color Doppler imaging of the kidney submitted. Technically difficult evaluation due to body habitus. Right kidney: 9.4 cm x 7.1 cm x 6.0 cm. Normal echogenicity with no hydronephrosis or mass. Left kidney: 10.6 cm x 5.3 cm x 5.6 cm. Normal echogenicity with no hydronephrosis or mass. Aorta: Not visualized. Urinary Bladder: Normal distention. US/US renal BI* [id number] IMPRESSION: Technically difficult evaluation of the kidneys. No mass or hydronephrosis evid ent.
== END 2022-03-16 14:36 | disposition home or self-care (01) ==
LOC: RAD 14:36
PROVIDERS: PCP Nurse Practitioner; Visit Provider Urology
DX: N13.5 Crossing vessel and stricture of ureter without hydronephrosis (principal)
CPT/HCPCS: 76770; 81003; 99213

== ENCOUNTER → 2022-03-30 10:11 | Outpatient (BNVA) | payer MEDICARE, MEDICAID, SELFPAY | PROVIDERS: PCP Nurse Practitioner; Visit Provider Registered Nurse | DX: N18.9 Chronic kidney disease, unspecified (principal) | CPT/HCPCS: 80069; 82043; 82310; 83970; 85025 ==

== ENCOUNTER → 2022-04-07 10:23 | Outpatient (BNVA) | payer MEDICARE, MEDICAID, SELFPAY | PROVIDERS: PCP Nurse Practitioner; Visit Provider Internal Medicine Pulmonary Disease | DX: J43.2 Centrilobular emphysema (principal); I10 Essential (primary) hypertension; R60.1 Generalized edema; Z87.891 Personal history of nicotine dependence; M25.561 Pain in right knee; M25.562 Pain in left knee; Z79.52 Long term (current) use of systemic steroids | CPT/HCPCS: 99214 ==

== ENCOUNTER → 2022-06-29 14:53 | Outpatient (BNVA) | payer MEDICARE, MEDICAID, SELFPAY | PROVIDERS: PCP Nurse Practitioner; Referring Provider Nurse Practitioner; Visit Provider Specialist | DX: M17.12 Unilateral primary osteoarthritis, left knee (principal) | CPT/HCPCS: 73560; 73565; 99214 ==

== ENCOUNTER → 2022-07-06 10:06 | Outpatient (BNVA) | payer MEDICARE, MEDICAID, SELFPAY | PROVIDERS: PCP Nurse Practitioner; Visit Provider Registered Nurse | DX: N18.9 Chronic kidney disease, unspecified (principal); E78.2 Mixed hyperlipidemia; E11.65 Type 2 diabetes mellitus with hyperglycemia; E55.9 Vitamin D deficiency, unspecified | CPT/HCPCS: 80053; 80061; 80069; 82043; 82306; 83036; 84443; 85025 ==

== ENCOUNTER 2022-07-12 15:06 | Outpatient (CLI) | payer MEDICARE, MEDICAID, SELFPAY ==
--- NOTE | 2022-07-12 15:30 | CT_ITS ---
WS: [id number] CT LEFT KNEE, NONCONTRAST TECHNIQUE: Noncontrast CT of the LEFT knee to include the LEFT hip and ankle. CLINICAL INFORMATION: left knee varus deformity and osteoarthritis COMPARISON: None. DLP: 1015.[address] scans at [facility] use at least one of these dose optimization techniques: automated e xposure control; mA and/or kV adjustment per patient size (includes targeted exams where dose is matc hed to clinical indication); or iterative reconstruction. FINDINGS: Partially visualized aortic endograft. Fat-containing inguinal hernias. Sigmoid diverticulo sis. Vascular calcification. Advanced degenerative arthritis LEFT knee with hypertrophic changes along the joint line. Hypertrophic patella. Small suprapatellar effusion. Lobulated RIGHT lower pelvic pseudoaneurysm with junctional endoleak appears similar to the prior exa minations. Similar-appearing external iliac artery aneurysm. CT/CT knee LT [facility] IMPRESSION: Images obtained for preoperative purposes.
== END 2022-07-12 15:07 | disposition home or self-care (01) ==
LOC: RAD 15:07
PROVIDERS: PCP Nurse Practitioner; Visit Provider Specialist
DX: M17.12 Unilateral primary osteoarthritis, left knee (principal)
CPT/HCPCS: 73700

== ENCOUNTER 2022-08-02 10:48 | Outpatient (CLI) | payer MEDICARE, MEDICAID, SELFPAY | END 2022-08-02 10:49 | disposition home or self-care (01) | LOC: RT 08-04 12:39 | PROVIDERS: PCP Nurse Practitioner; Visit Provider Specialist | DX: Z13.6 Encounter for screening for cardiovascular disorders (principal); I45.10 Unspecified right bundle-branch block; I44.4 Left anterior fascicular block | CPT/HCPCS: 93005 ==

== ENCOUNTER → 2022-08-03 13:03 | Outpatient (BNVA) | payer MEDICARE, MEDICAID, SELFPAY | PROVIDERS: PCP Nurse Practitioner; Visit Provider Nurse Practitioner Family | DX: M25.561 Pain in right knee (principal); G89.29 Other chronic pain; M17.12 Unilateral primary osteoarthritis, left knee | CPT/HCPCS: 99214 ==

== ENCOUNTER 2022-08-09 16:31 | Inpatient (IN) | payer MEDICARE, MEDICAID, SELFPAY ==
[2022-08-02 10:28] VITALS: BMI 39.1
--- NOTE | 2022-08-02 10:48 | ECG_ITS ---
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 Measurements Intervals Nora Rate: 75 P: 43 OK: 180 QRS: -61 QRSD: 120 T: 51 QT: 403 QTc: 450 Interpretive Statements SINUS RHYTHM WITH OCCASIONAL SUPRAVENTRICULAR PREMATURE COMPLEXES RIGHT BUNDLE BRANCH BLOCK [120+ ms QRS DURATION, UPRIGHT V1, 40+ ms S IN I/aVL/V4/V5/V6] LEFT ANTERIOR FASCICULAR BLOCK [QRS AXIS <= -45, QR IN I, RS IN II] MODERATE VOLTAGE CRITERIA FOR LVH, CONSIDER NORMAL VARIANT [MEETS CRITERIA IN ONE OF: R(aVL), S(V1), R(V5), R(V5/V6)+S(V1)] Compared to ECG 01/11/2021 16:10:04 Right bundle-branch block now present Left anterior fascicular block now present Electronically Signed On 08-03-2022 2:24:11 CDT by Joyce Canas M.D. [id number]
[2022-08-02 11:02] LABS: Basophils # 0.1 10^3/uL (0.0-0.1); Basophils % 0.8 %; Eosinophils # 0.2 10^3/uL (0.0-0.8); Eosinophils % 1.9 %; Hematocrit 41.2 % (42.0-52.0); Hemoglobin 13.6 g/dL (11.7-16.6); Lymphocytes # 2.1 10^3/uL (0.8-4.8); Lymphocytes % 19.6 %; Mean Corpuscular Volume 90.7 fl (80-94); Mean Platelet Volume 8.4 fL (7.4-10.4); Monocytes # 0.8 10^3/uL (0.2-0.9); Monocytes % 7.5 %; Neutrophils # 7.47 10^3/uL (1.8-7.7); Neutrophils % 69.5 %; Nucleated Red Blood Cells % 0 %; Platelet Count 209 10^3/cmm (130-400); Red Blood Count 4.54 10^6/uL (4.1-5.3); Red Cell Distribution Width 18.6 % (12.1-15.1); White Blood Count 10.8 10^3/uL (4.0-10.0)
[2022-08-02 11:20] LABS: Alanine Aminotransferase 26 U/L (0-41); Albumin Level 3.6 g/dL (3.5-5.2); Alkaline Phosphatase 109 U/L (40-130); Anion Gap 17.1 (5-19); Aspartate Amino Transferase 22 U/L (0-40); Blood Urea Nitrogen 50 mg/dL (8-23); Calcium 9.5 mg/dL (8.5-10.5); Carbon Dioxide 31 mmol/L (22-29); Chloride 92 mmol/L (98-107); Glucose 147 mg/dL (65-115); Osmolality Calculated 300 mOsm/kg (285-295); Potassium 3.1 mmol/L (3.5-5.1); Sodium 137 mmol/L (136-145); Total Bilirubin 0.5 mg/dL (0.15-1.2); Total Protein 6.6 g/dL (6.6-8.7)
--- NOTE | 2022-08-02 11:21 | ANES.PREANE2 ---
Pre-Anesthetic Assessment Height/Weight: Height 1.7 m Weight 113.398 kg Operation Date: 08/09/22 11:00 Proposed Procedures p LEFT TOTAL KNEE ARTHROPLASTY WITH KADIE GUIDANCE 68647, M17.10(Left) - aSrai Tompkins MD Familial anesthetic complications: none Social No alcohol and No tobacco Exam alert, oriented x 3, clear to auscultation bilaterally and regular rate & rhythm Airway Mallampati: Class IV Dentition: other (no teeth) Pulmonary Chronic Obstructive Pulmonary Disease CV/HEM Coronary Artery Disease and Congestive Heart Failure Chronic Renal Insufficiency Metabolic Hyperlipidemia, Morbid Obesity and Thyroid Disease hyperglycemia Anesthetic Plan ASA status: 4 Anesthesia: Regional (specify below) Risk of > 500 ml blood loss (7ml/kg in children): No Medications/Allergies Home Medications Medication Instructions Recorded Confirmed Last Taken Type aspirin 81 mg tablet,delayed 81 mg PO DAILY 12/04/19 08/02/22 08/02/22 History release Njre-h-ygyss #1 ea 02/18/21 07/14/22 Unknown Rx Wheelchair #1 ea 08/05/21 07/14/22 Unknown Rx magnesium L-lactate 84 mg 84 mg PO BID #60 tabs 08/25/21 08/02/22 08/02/22 Rx tablet,extended release (Magtab) potassium chloride 20 mEq 40 meq PO DAILY 09/09/21 08/02/22 08/02/22 History tablet,extended release(part/cryst) naloxone 4 mg/actuation nasal 1 spray intranasal Q3M #2 ea 09/16/21 08/02/22 Unknown Rx spray (Narcan) prednisone 20 mg tablet 20 mg PO DAILY 12/28/21 08/02/22 08/02/22 History metoprolol tartrate 50 mg tablet 50 mg PO BID #180 tabs 01/25/22 08/02/22 08/02/22 Rx alirocumab 75 mg/mL subcutaneous 75 mg SUBCUT Q14D #2 mL 02/16/22 08/02/22 07/27/22 Rx pen injector (Praluent Pen) atorvastatin 80 mg tablet 80 mg PO DAILY #90 tabs 06/08/22 08/02/22 08/02/22 Rx cholecalciferol (vitamin D3) 1,250 50,000 unit PO .weekly #4 caps 06/08/22 08/02/22 08/02/22 Rx mcg (50,000 unit) capsule fluticasone fur. 100 mcg-umeclid 1 inh inhalation DAILY #60 ea 06/08/22 08/02/22 08/02/22 Rx 62.5 mcg-vilant 25 mcg inhalat.powder (Trelegy Ellipta) levothyroxine 150 mcg tablet 150 mcg PO DAILY #30 tabs 06/08/22 08/02/22 08/02/22 Rx tamsulosin 0.4 mg capsule (Flomax) 0.4 mg PO .2 times day #180 caps 06/08/22 08/02/22 08/02/22 Rx tramadol 50 mg tablet 50 mg PO Q6H PRN pain #120 tabs 06/08/22 08/02/22 08/02/22 Rx blood sugar diagnostic (OneTouch #50 ea 07/14/22 07/14/22 Unknown Rx Ultra Test strips) blood-glucose meter (OneTouch #1 ea 07/14/22 07/14/22 Unknown Rx Ultra2 Meter kit) lancets 33 gauge (OneTouch Delica #100 ea 07/14/22 07/14/22 Unknown Rx Lancets) semaglutide 3 mg tablet (Rybelsus) 3 mg PO DAILY 30 days #30 tabs 07/14/22 08/02/22 08/02/22 Rx bumetanide 2 mg tablet 2 mg PO BID PRN swelling #100 tabs 07/20/22 08/02/22 08/02/22 Rx levalbuterol tartrate 45 2 inh inhalation Q6H PRN shortness 07/20/22 08/02/22 08/02/22 Rx mcg/actuation aerosol inhaler of breath or wheezing #15 grams Allergies Allergy/AdvReac Type Severity Reaction Status Date / Time No Known Allergies Allergy Verified 07/14/22 08:44 [facility] Anesthesia Medical History AAA (abdominal aortic aneurysm) Adult hypothyroidism Arteriosclerotic heart disease (ASHD) CKD (chronic kidney disease) COPD (chronic obstructive pulmonary disease) Diabetes mellitus with hyperglycemia, without long-term current use of insulin DJD (degenerative joint disease) Enlarged prostate Extrinsic ureteral obstruction History of severe acute respiratory syndrome coronavirus 2 (SARS-CoV-2) disease Hydronephrosis, right Hypertension Hypokalemia due to excessive renal loss of potassium Mixed hyperlipidemia Neutrophilic leukocytosis Obstruction of right ureter Personal history of nicotine dependence Vitamin D deficiency Surgical History History of appendectomy History of cataract surgery Both eyes History of colonoscopy 2012 History of endovascular stent graft for abdominal aortic aneurysm (AAA) July 2017 Family History Mother , AT AGE 71 Stroke Clotting disorder Grandmother Stroke Father , AT AGE 76 Hypertension Stroke Clotting disorder Other CAD (coronary artery disease) Dementia Diabetes Lung disease Denies family history of Psychiatric illness Chronic kidney disease (CKD) Suicide Anesthesia complication Bleeding disorder Cancer Social History Smoking and tobacco status: former smoker Quit status (tobacco): has quit using tobacco Year quit tobacco: 2020 Former quit date comment: [id number] Second hand smoke exposure: Yes Smoking risk assessment/counseling performed?: No Alcohol intake: never Desire information about alcohol rehabilitation?: No Counseling given: No Desire information about substance/drug rehabilitation?: No Counseling given: No Adopted: No Caregiver/support person: No Lives independently: Yes Household members: spouse and none Housing: Other Marital status: / service: Yes branch: [employer] Current occupational status: retired Current occupational exposures/hazards: No Current gender identity: Male Data Anesthesia 08/02/22 10:42 08/02/22 10:42 Short CBC 08/02/22 Range/Units 10:42 WBC 10.8 H (4.0-10.0) 10^3/uL Hgb 13.6 (11.7-16.6) g/dL Hct 41.2 L (42.0-52.0) % MCV 90.7 (80-94) fl Plt Count 209 (130-400) 10^3/cmm Neut % (Auto) 69.5 % Neut # (Auto) 7.47 (1.8-7.7) 10^3/uL BMP 08/02/22 10:42 Sodium 137 Calcium 9.5 Liver Function 08/02/22 Range/Units 10:42 Total Bilirubin 0.5 (0.15-1.2) mg/dL AST 22 (0-40) U/L ALT 26 (0-41) U/L Alkaline Phosphatase 109 (40-130) U/L Albumin 3.6 (3.5-5.2) g/dL Cardiac Studies: Echocardiogram 01/12/21 Echocardiogram Ultrasound 03/10/20 Sestamibi Stress Test (Cardiology) 10/12/20 Cardiac Event Monitor 07/12/21
[2022-08-02 11:34] LABS: Add Urine Microscopic? YES; Bilirubin Urine Neg (Negative); Blood Urine 2+ (Negative); Glucose Urine UA Norm (Normal); Ketones Urine Negative (Negative); Leukocyte Esterase Urine Negative (Negative); Nitrate Urine Negative (Negative); Protein Urine 3+ (Negative); Urine Appearance Clear (CLEAR); Urine Color Yellow (Yellow); Urobilinogen Urine Norm (Negative); pH Urine 5 (5-7)
[2022-08-02 11:36] LABS: Bacteria Urine 1+ /hpf; WBC Urine RARE /hpf (0-5)
[2022-08-02 11:37] LABS: Hyaline Casts Urine 0-4 /lpf
[2022-08-09] VITALS (19 sets, daily range): BP systolic 112–139; BP diastolic 66–88; PULSE 65–79; RESP 12–20; TEMP 36.1–36.9; O2SAT 90–98; BMI 38.5
[2022-08-09] MEDS: acetaminophen 1,000 MG/100 ML PIGGYBACK 400 MG IV ×2 (06:41→17:52)
[2022-08-09] MEDS: sodium chloride 0.9% 1,000 ML 30 ML IV (06:41)
[2022-08-09] MEDS: gabapentin 300 mg Capsule PO (06:46)
[2022-08-09] MEDS: CELEcoxib 200 mg Capsule 400 MG PO (06:46)
--- NOTE | 2022-08-09 06:47 | W.PM.OPSUD ---
Surgery/Procedure H&P Update DATE OF PROCEDURE: August 09, 2022 DATE H&P PERFORMED: 08/03/22 H&P UPDATE INFORMATION: I have reviewed H&P completed within last 30 days, I have examined patient prior to procedure, No changes to prior documentation and H[place] [facility] [place] date indicated PREOP DIAGNOSIS: Severe degenerative osteoarthritis left knee PLANNED PROCEDURE: Operation Date: 08/09/22 07:00 Proposed Procedures p Total Knee Arthroplasty Revision(Left) - Sarai Tompkins MD Related Problem List Diagnoses (1) Primary osteoarthritis of left knee:
[2022-08-09] MEDS: ceFAZolin 2,000 MG in sodium chloride 0.9% (plus) 50 ML 100 MG IV ×2 (06:58→18:23)
[2022-08-09 07:09] LABS: Potassium 3.3 mmol/L (3.5-5.1)
[2022-08-09] MEDS: ceFAZolin 1,000 mg SDV 1000 MG IRRIGATION (08:04)
[2022-08-09] MEDS: vancomycin 1,000 MG SDV 1000 MG XX (08:05)
[2022-08-09] MEDS: sodium chloride 0.9% 250 mL Bag 50 ML XX (08:10)
--- NOTE | 2022-08-09 08:20 | ANES.PROC ---
Anesthesia Procedures Procedure/Date: 08/09/22 left adductor Procedure Narrative: direct needle visualization maintained on ultrasound. Nerve Block ^: Nerve Block 1: Main Anesthesia: general anesthesia Time Out Performed: Yes Consent: requested by attending/covering physician, from patient, risks and benefits reviewed and patient agrees to proceed Nerve block location: adductor canal Anesthesia monitors applied: pulse oximetry, EKG, BP cuff and oxygen Nerve block position: semi sitting Anesthetic Used: ropivicaine 0.5% Amount of anesthesia used (mL): 20 Ultrasound used to: recognize landmarks and visualize and ID femerol nerve Nerve Stimulator Used?: No Interscalene/Femoral BLK: 4 stimuplex 21 g needle used for position and inplane approach, visualize local anesthetic spread and no vascular puncture identified Injection: neg aspiration of heme Patient Tolerated Procedure: well and no complications Complications: none
--- NOTE | 2022-08-09 11:12 | PM.OP ---
Operative Report Date of procedure: August 09, 2022 Pre-op diagnosis: Left knee severe degenerative osteoarthritis with varus deformity, significant flexion contracture, and significant bone loss with large osteophytes Post-op diagnosis: Left knee severe degenerative osteoarthritis with varus deformity, significant flexion contracture, and significant bone loss with large osteophytes Post-op findings: Very large osteophytes. Medial bone loss which was very significant. Complete obliteration of cartilage. Fixed flexion contracture of at least 20 degrees. Severe varus deformity and lack of motion. Procedure done: Revision cemented left total knee arthroplasty utilizing revision tibial components with augment and stem to the tibia Implants: [employer] total knee system with a size 5 universal cemented triathlon tibial baseplate, a triathlon total knee cemented stem size 12 mm x 50 mm, tibial augment medial half block, size 5 x 10 mm for medial tibia, a size 5 right posterior stabilized cemented triathlon femur.? The triathlon X3 total stabilizer plus tibial insert size 5 x 13 mm and an asymmetric patella size 35 x 10 mm Specimens removed/disposition: Bone, disposed of Pathology: none sent Surgeon: Sarai Tompkins [employer] Technician: [place] operating room technicians Anesthesia: General (Per LMA with preoperative regional block, ASA 4) Estimated blood loss (mL): 150 Tourniquet time (min): 113 (At 250 mmHg) IV fluids (mL): 900 Urine output (mL): 200 Complications: None Condition: stable Disposition: PACU (Then return to floor for postoperative rehabilitation and pain may) Brief History: This is a 76-year-old gentleman presenting today for left total knee arthroplasty. When he was initially seen in my office, he presented to clinic in a wheelchair due to bilateral knee severe arthritis and deformities. He states he has had left knee pain for several years. He reports stiffness, swelling, and popping. He states his left knee pops out of place . He reports difficulty standing and walking. He rates his pain a 10/10 while ambulating. He denies any pain while sitting and resting. He explains he was evaluated 2 years ago for a left total knee arthroplasty, but he had to put this off secondary to life events regarding his . Today, he presents for revision total knee arthroplasty, utilizing revision components, secondary to severe deformity and flexion contracture. Preoperatively, consents were signed and questions were answered. Procedure: The patient was brought to the operating theater, and after undergoing adequate general anesthesia per LMA after failed spinal attempt and supplemental regional block, ASA 4, the left lower extremity was prepped with Dura-Prep and draped in usual fashion following placement of a tourniquet high on the leg. The leg was then draped free. Prepping and draping was difficult secondary to the fixed flexion contracture and severe varus deformity. Following prepping and draping, the leg was exsanguinated, and the tourniquet was elevated to 250 mmHg for a total tourniquet time of 113 minutes.? The tourniquet was released partially through the case and remained down until conclusion. Prior to elevation of the tourniquet, but following exposure of the site of surgery, a surgical pause was performed. At the time of the surgical pause, we confirmed the site and side of surgery. Additionally, we confirmed the appropriate and timely administration of preoperative antibiotics, Ancef 2 g. and Transexemic acid 1 g. The availability of equipment was confirmed, and the patient's identity was verbalized as well. Following the surgical pause, an incision was made centering over the patella continuing proximally and distally as necessary to allow access to the knee joint. Dissection continued through skin and soft tissues using a scalpel. Hemostasis was obtained using electrocautery. The skin incision was followed by a median parapatellar arthrotomy.? There was noted to be significant fluid within the joint.? Following this, the leg was extended and the patella was everted. The leg was then returned to flexed position.? Large osteophytes had to be removed prior to placement of the jogging system for the total knee arthroplasty as they were not able to be seated correctly. The distal femur was exposed and a drill hole was made in this for placement of the distal femoral jig. The distal femoral jig was set at 5? of valgus. The distal femoral cutting block was then placed in appropriate position, and an erica wing was used to confirm an appropriate amount of distal femur would be resected.? The distal femoral resection was accomplished with 10 mm of bone being resected distally secondary to severe flexion contracture.? After the distal femoral resection had been accomplished, the femur was measured and it measured a size 5 anterior to posterior.? Medial lateral dimension was a size 5.? A size 5 femoral cutting block was placed in position, and we were then able to accomplish the anterior, posterior and chamfer cuts. This jig was then removed.? The notch was removed uneventfully.? The posterior knee retractor was placed along with medial and lateral retractors. Further resection of the menisci was accomplished as we had better visualization. A complete meniscectomy was performed both medially and laterally with care being taken to protect the popliteus. Retractors were then placed so that the proximal tibia was well visualized. A drill hole was then made in the tibia for placement of the intramedullary guide. This guide was placed so that 9 mm of bone would be resected from the prominent lateral aspect of the proximal tibia. There was a very large bone deficiency which was sloping and not contained in the medial tibial plateau. Even with resection set at 9 mm laterally, a 10 mm augment was still required in the medial aspect of the knee. The revision cutting block was utilized so that we could square the cut to place this 10 mm augment. We evaluated for 5 mm, however, this still left a large uncontained deficiency medially. The intramedullary guide was utilized supplemented with an extramedullary guide to assure appropriate alignment for the proximal tibial resection. The proximal tibial jig was then evaluated, pinned in position, and the proximal tibial resection was accomplished without difficulty. The jig was removed, and the proximal tibia was measured. It measured a size 5 with a 10 degree augment medially.? Attention was then directed to trial reduction. We then attempted a trial reduction with a size 5 femur and initially a size 5 tibia tray with a size 5 by 11 posterior stabilized insert.? Osteophytes were also removed from the tibia.? Medial release was accomplished as well. The femoral component was placed in position for the trial reduction, and the knee was placed through range of motion.? There was some laxity laterally, and therefore, we performed a medial release and a slight posterior release.? With this, there was excellent stability with excellent varus-valgus alignment with appropriate patellar tracking, but we increased the insert to a size 5 x 13 mm.? Extension was noted to be full as well.? This was felt to be the appropriate size insert. There was full extension and flexion without lift off.? Alignment was checked from the hip to the ankle, and this was noted to be appropriate as well.? As the tibia had been prepared for the augment, we did have to move the tibial tray slightly laterally and these cuts were made without difficulty. Following that, the tibia was drilled and broached to allow for a stem for better stability. A trial reduction was then accomplished with this construct, and we had the same appropriate range of motion, flexion, and extension. The wound was copiously irrigated.? The surfaces were dried.? Components were put together including the tibia which was constructed with a medial 10 mm augment as well as a short stem size 12 mm x 50 mm.? Proximal tibia was prepared for the stem with a drill and a broach.? Cementing was then accomplished of the tibia and femoral components.? The size 5 x 13 mm total stabilizer plus insert was placed in position.? As there was some medial lateral laxity, we did use a total stabilizer plus insert. This allowed better balance to the knee with full extension. Attention was then directed to the patella. The patella was measured with a caliper.? We resected sufficient patella to leave approximately 14 mm of patella remaining.? Measurements of the patella then indicated that a size asymmetric 35 mm x 10 mm was the appropriate patellar size. We then placed the jig to drill for the 3 pegs of the cemented patella, and these drill holes were made without incident.? The size 35 mm x 10 mm asymmetric patella was cemented into position without difficulty.? It was held until cement had fully cured and all surfaces of the prosthetic components.? Excess cement was cleared from all areas prior to cement curing.? The knee was then placed through range of motion once again.? All components were evaluated for any further extruded cement. The patella was noted to track nicely without evidence of subluxation.? Exparel was injected following placement of the components. The knee was irrigated with 20 mL of Betadine and 500 mL of normal saline, and this was allowed to remain in the knee for 3-4 minutes.? The knee was then copiously irrigated and suctioned dry. Attention was then directed to closure. Closure was accomplished with 0 Vicryl in the fascial tissues.? Following this, a 2-0 Monocryl was used in the subcutaneous tissues, and the skin was closed with skin kaylee. A sterile dressing was then placed consisting of Dermabond Prineo, Op Site, sterile soft roll, and an Nigel wrap. The patient was returned the Recovery Room in a satisfactory condition. X-rays were obtained there.? The patient will be discharged to the floor for postoperative rehabilitation and pain management. Related Problem List Diagnoses (1) Primary osteoarthritis of left knee: (2) Varus deformity, not elsewhere classified, left knee: (3) Flexion contracture of left knee:
--- NOTE | 2022-08-09 11:16 | XR_ITS ---
WS: [id number] Left knee, AP and lateral views, 08/09/2022 Clinical Data: Status post left total knee arthroplasty revision Comparison: Bilateral knees, left knee, 06/29/2022 Findings: There is an arthroplasty of the left knee. The components are in good position. There is air in the j oint space from recent surgery. There are anterior surgical kaylee in the subcutaneous tissue. XR/XR knee LT 1-2V [id number] Impression: Left knee arthroplasty.
--- NOTE | 2022-08-09 13:04 | P.ANESUD_ITS ---
Pre-Anesthetic Update Pre-Anesthetic Assessment: Date of Surgery/Procedure: 08/09/22 Preop Denise gnosis: Severe degenerative osteoarthritis left knee Proposed Procedure: Operation Date: 08/09/22 07:00 Proposed Procedures p Total Knee Arthroplasty Revision(Left) - Sarai Tompkins MD Any changes to Pre-Anesthetic Assessment?: No Last Intake: Intake Last Liquid Date 08/08/22 Last Liquid Time 22:00 Last Solid Date 08/08/22 Last Solid Time 19:00 Labs Last 48hrs: BMP 08/09/22 06:32 Potassium 3.3 L Vitals: Temperature 97 F L 08/09/22 13:00 Temperature Source Temporal Artery S can 08/09/22 13:00 Pulse Rate 66 08/09/22 13:00 Respiratory Rate 18 08/09/22 13:00 Blood Pressure 134/78 08/09/22 13:00 Blood Pressure Yesenia n 96 08/09/22 13:00 Pulse Oximetry 96 08/09/22 13:00 Oxygen Delivery Me thod Nasal Cannula 08/09/22 13:00 Oxygen Flow Rate 2 08/09/22 13:00 Exam: Pre-Anes Outpt Exam: alert, oriented x 3, clear to auscultation bilaterally and regular rate & rhythm Cardiac Studies: Echocardiogram 01/12/21 Echocardiogram Ultrasound 03/10/20 Sestamibi Stress Test (Cardiology) 10/12 Cardiac Event Monitor 07/12/21
--- NOTE | 2022-08-09 14:47 | ANE.PACU2 ---
Inpatient post-anesthesia follow up: Airway intact: Yes Vital signs: Temperature 97.1 F Pulse Rate 68 Respiratory Rate 18 Blood Pressure 130/70 Pulse Oximetry 95 Oxygen Delivery Me thod Nasal Cannula Oxygen Flow Rate 2 Fraction of Inspir ed Oxygen Hydration adequate: Yes Nausea and vomiting: No Pain level: 3 Mental status: Baseline
--- NOTE | 2022-08-09 15:45 | PC.NURSE ---
1545 : verbal bedside report given to Sadaf Hernandes rn and she assumed care of patient at this time . pt has zero complaint of pain and post op vital signs documented in computer
[2022-08-09] MEDS: oxyCODONE 5 mg IR Tab/Cap PO ×2 (16:20→21:46)
--- NOTE | 2022-08-09 16:52 | PC.NURSE ---
Report given to ANDREW ALFARO. pt moved to room 260 via bed and care turned over.
[2022-08-09 16:58] LABS: Hepatitis B Surface Antigen Non-Reactive (Nonreactive); Hepatitis C Virus Antibody Non-Reactive (Nonreactive)
[2022-08-09] MEDS: chlorhexidine gluconate 0.12% Btl 473 mL 30 ML MUCOUS MEM ×2 (17:51→21:49)
[2022-08-09] MEDS: iron polysaccharide complex 150 mg Capsule PO (17:52)
[2022-08-09] MEDS: mupirocin oint 22 gm 1 APPLIC NASAL (17:52)
[2022-08-09] MEDS: tamsulosin 0.4 mg Capsule PO (17:52)
[2022-08-09] MEDS: calcium carbonate 500 mg Chew Tablet 1000 MG PO (17:52)
[2022-08-09] MEDS: sennosides-docusate Tablet 2 TAB PO (17:52)
[2022-08-09] MEDS: magnesium lactate 84 mg Tablet PO (17:52)
[2022-08-09] MEDS: clotrimazole 1% cream 30 gm 1 APPLIC TOPICAL (17:58)
[2022-08-09 19:42] LABS: HIV 1 & 2 Antibody Non-Reactive (Non-Reactiv); HIV 1 & 2 Antigen Non-Reactive (Non-Reactiv)
[2022-08-09] MEDS: ipratropium-albuterol 3 mL Neb INHALATION (21:00)
[2022-08-09] MEDS: budesonide 0.5 mg/2 mL Neb INHALATION (21:00)
[2022-08-09] MEDS: metoprolol tartrate 50 mg Tablet PO (21:47)
[2022-08-10] VITALS (14 sets, daily range): BP systolic 107–149; BP diastolic 63–74; PULSE 71–84; RESP 13–18; TEMP 36.6–37; O2SAT 87–100
[2022-08-10] MEDS: ceFAZolin 2,000 MG in sodium chloride 0.9% (plus) 50 ML 100 MG IV ×2 (02:13→11:10)
[2022-08-10] MEDS: acetaminophen 1,000 MG/100 ML PIGGYBACK 400 MG IV ×2 (02:13→11:10)
[2022-08-10 05:41] LABS: Glucose Point of Care 129 mg/dL (70-110)
[2022-08-10 05:45] LABS: Basophils % 0.2 %; Eosinophils % 0.1 %; Hematocrit 32.9 % (42.0-52.0); Lymphocytes # 1.8 10^3/uL (0.8-4.8); Lymphocytes % 14.8 %; Mean Corpuscular HGB Conc 33.4 g/dL (30.0-36.0); Mean Corpuscular Hemoglobin 31.2 pg (28.0-34.0); Mean Corpuscular Volume 93.2 fl (80-94); Mean Platelet Volume 8.4 fL (7.4-10.4); Monocytes # 1.6 10^3/uL (0.2-0.9); Monocytes % 13.3 %; Neutrophils # 8.61 10^3/uL (1.8-7.7); Neutrophils % 70.9 %; Nucleated Red Blood Cells % 0 %; Platelet Count 188 10^3/cmm (130-400); Red Blood Count 3.53 10^6/uL (4.1-5.3); Red Cell Distribution Width 17.9 % (12.1-15.1); White Blood Count 12.2 10^3/uL (4.0-10.0)
[2022-08-10] MEDS: oxyCODONE 5 mg IR Tab/Cap PO ×2 (05:55→11:20)
[2022-08-10 06:02] LABS: Anion Gap 17.8 (5-19); Blood Urea Nitrogen 53 mg/dL (8-23); Calcium 9.4 mg/dL (8.5-10.5); Carbon Dioxide 29 mmol/L (22-29); Chloride 94 mmol/L (98-107); Glucose 114 mg/dL (65-115); Osmolality Calculated 301 mOsm/kg (285-295); Sodium 138 mmol/L (136-145)
[2022-08-10 06:05] LABS: Potassium 2.8 mmol/L (3.5-5.1)
[2022-08-10] MEDS: ipratropium-albuterol 3 mL Neb INHALATION ×4 (07:59→19:59)
[2022-08-10] MEDS: atorvastatin 40 mg Tablet 80 MG PO (08:44)
[2022-08-10] MEDS: metoprolol tartrate 50 mg Tablet PO ×2 (08:44→20:49)
[2022-08-10] MEDS: sennosides-docusate Tablet 2 TAB PO ×2 (08:45→19:17)
[2022-08-10] MEDS: levothyroxine 150 mcg Tablet PO (08:45)
[2022-08-10] MEDS: magnesium lactate 84 mg Tablet PO ×2 (08:45→19:22)
[2022-08-10] MEDS: tamsulosin 0.4 mg Capsule PO ×2 (08:45→19:17)
[2022-08-10] MEDS: predniSONE 20 mg Tablet PO (08:45)
[2022-08-10] MEDS: iron polysaccharide complex 150 mg Capsule PO ×2 (08:46→19:17)
[2022-08-10] MEDS: cholecalciferol (vitamin D3) 1,000 unit Tablet 1000 UNIT PO (08:46)
[2022-08-10] MEDS: aspirin 325 mg EC Tablet PO (08:46)
[2022-08-10] MEDS: calcium carbonate 500 mg Chew Tablet 1000 MG PO ×2 (08:46→19:17)
[2022-08-10] MEDS: lidocaine 1% 5 ML in potassium chloride premix 100 ML 26.25 ML IV (08:47)
[2022-08-10] MEDS: chlorhexidine gluconate 0.12% Btl 473 mL 30 ML MUCOUS MEM ×4 (08:48→20:50)
[2022-08-10] MEDS: mupirocin oint 22 gm 1 APPLIC NASAL ×2 (08:49→19:19)
[2022-08-10] MEDS: multivitamin therapeutic Tablet 1 TAB PO (08:49)
[2022-08-10] MEDS: clotrimazole 1% cream 30 gm 1 APPLIC TOPICAL ×2 (08:49→19:18)
[2022-08-10] MEDS: lidocaine 1% 5 ML in potassium chloride premix 100 ML 26 ML IV (13:08)
[2022-08-10 17:55] LABS: Potassium 3.9 mmol/L (3.5-5.1)
--- NOTE | 2022-08-10 18:14 | PM.PN ---
Subjective Subjective: Patient had a low potassium this morning. He is laying in bed when I went to see him, and although he did very well last night, once the block wore off, he was in too much pain to stand up. He experienced some buckling of his knee with physical therapy. Medications: Reviewed: Yes Vitals/I&O/Wt Last Vital Signs Temp 97.8 F 08/10/22 15:21 Pulse 75 08/10/22 15:21 Resp 15 08/10/22 15:21 BP 118/67 08/10/22 15:21 Pulse Ox 93 08/10/22 15:21 O2 Del Method Room Air 08/10/22 15:21 O2 Flow Rate 2 08/10/22 10:53 08/10/22 08/10/22 08/10/22 06:59 14:59 22:59 Intake Total 150 / 1955 255 / 255 Output Total 100 / 650 325 / 325 250 / 575 Balance 50 / 1305 -70 / -70 -250 / -320 Weight last 48 hrs Weight 246 lb Physical Exam Const: COMMON NORMALS: no acute distress, patient oriented x3 and alert GENERAL APPEARANCE: cooperative and comfortable ORIENTATION/CONSCIOUSNESS: Yes awake HENMT: COMMON NORMALS: normocephalic and atraumatic HEAD & SCALP: normocephalic and atraumatic Eye: GENERAL EYE: appearance normal, both eyes and all related structures Chest: COMMONS NORMALS: normal inspection of the chest Resp: COMMON NORMALS: normal respiratory effort EFFORT & INSPECTION: Yes able to speak in complete sentences and Yes symmetric chest movement Extremity: LEFT LOWER EXTREMITY: Yes knee joint (Large outer dressing is removed, supervisor blasting dressing remains) Left knee: Yes inspection (Minimal ecchymosis.), Yes palpation (Tender to palpation.), Yes ROM (Not evaluated.) and Yes neurovascular exam (Intact distally.) Neuro: COMMON NORMALS: patient oriented x3 SENSORIUM/ORIENTATION: Yes alert Psych: COMMON NORMALS: mental status grossly normal APPEARANCE: Yes grossly normal ATTITUDE: Yes calm and Yes engaged ATTENTION/CONCENTRATION: Yes attention grossly intact Skin: COMMON NORMALS: no rashes or lesions noted GENERAL SKIN EXAM: no rashes or lesions noted Urinary Catheter Management: Desir: Cath Placed During This Visit: yes, but has since been removed by the nurse Reason for Continuing Indwelling Catheter: Decision to DC Catheter Urinary Catheter Date of Insertion: 08/09/22 Urinary Catheter Time of Insertion: 07:35 Date Urinary Catheter Removed: 08/10/22 Time Urinary Catheter Discontinued: 06:00 Data 08/10/22 04:54 08/10/22 17:21 A&P Assessment and plan (1) Status post total left knee replacement not using cement: (2) Primary osteoarthritis of left knee: (3) Varus deformity, not elsewhere classified, left knee: (4) Flexion contracture of left knee: Plan Patient underwent same-day surgery revision component left total knee arthroplasty uneventfully yesterday. Last night, the patient did well, but this morning, he was having increased pain. His potassium was quite low as well. The patient received potassium supplement today. He minimally worked with physical therapy. It is not felt that he is safe at this time for discharge to home as he was not able to participate with therapy in an appropriate fashion. Plans are that he will remain 1 more day in the hospital for ongoing therapies. His potassium will be monitored during this time as well. Pending upon the potassium levels, he may require further supplements. Patient and his son are in agreement with this plan. Attestations Medical Necessity Statement*: Patient continues hospital stay for low potassium and difficulty working with therapies. Coding Level of Care Code Acute Code for Chg Fwd Diagnoses Status post total left knee replacement not using cement Z96.652 Primary osteoarthritis of left knee M17.12 Varus deformity, not elsewhere classified, left knee M21.162 Flexion contracture of left knee M24.562
[2022-08-10] MEDS: acetaminophen 500 mg Tablet 1000 MG PO (19:17)
[2022-08-10] MEDS: budesonide 0.5 mg/2 mL Neb INHALATION (19:59)
--- NOTE | 2022-08-10 23:51 | PC.NURSE ---
Patient rounded on and O2 saturations found to be in mid 80s while at rest. 2L nasal cannula was applied, O2 saturations now back in the 90s. No patient complaints of shortness of breath.
[2022-08-11] VITALS (7 sets, daily range): BP systolic 151; BP diastolic 79; PULSE 76–81; RESP 16–18; O2SAT 95–97
[2022-08-11] MEDS: acetaminophen 500 mg Tablet 1000 MG PO ×2 (01:11→08:38)
[2022-08-11] MEDS: budesonide 0.5 mg/2 mL Neb INHALATION (07:37)
[2022-08-11] MEDS: ipratropium-albuterol 3 mL Neb INHALATION ×2 (07:37→11:13)
[2022-08-11] MEDS: iron polysaccharide complex 150 mg Capsule PO (08:38)
[2022-08-11] MEDS: predniSONE 20 mg Tablet PO (08:38)
[2022-08-11] MEDS: TRAMadol 50 mg Tablet PO (08:38)
[2022-08-11] MEDS: levothyroxine 150 mcg Tablet PO (08:38)
[2022-08-11] MEDS: metoprolol tartrate 50 mg Tablet PO (08:38)
[2022-08-11] MEDS: cholecalciferol (vitamin D3) 1,000 unit Tablet 1000 UNIT PO (08:39)
[2022-08-11] MEDS: tamsulosin 0.4 mg Capsule PO (08:39)
[2022-08-11] MEDS: atorvastatin 40 mg Tablet 80 MG PO (08:39)
[2022-08-11] MEDS: aspirin 325 mg EC Tablet PO (08:40)
[2022-08-11] MEDS: calcium carbonate 500 mg Chew Tablet 1000 MG PO (08:40)
[2022-08-11] MEDS: sennosides-docusate Tablet 2 TAB PO (08:40)
[2022-08-11] MEDS: clotrimazole 1% cream 30 gm 1 APPLIC TOPICAL (08:41)
[2022-08-11] MEDS: chlorhexidine gluconate 0.12% Btl 473 mL 30 ML MUCOUS MEM ×2 (08:43→13:10)
[2022-08-11] MEDS: mupirocin oint 22 gm 1 APPLIC NASAL (08:43)
[2022-08-11] MEDS: magnesium lactate 84 mg Tablet PO (08:44)
[2022-08-11] MEDS: multivitamin therapeutic Tablet 1 TAB PO (08:45)
[2022-08-11] MEDS: oxyCODONE 5 mg IR Tab/Cap PO (11:37)
--- NOTE | 2022-08-11 13:28 | PM.DCS ---
Discharge Providers Date of Admission: 08/10/22 18:27 Date of Discharge: August 11, 2022 Attending Provider at Admission: Sarai Tompkins MD Attending Provider at Discharge: Sarai Tompkins MD Primary Care Provider: ADAN Newton Diagnoses at Discharge Discharge Diagnosis (1) History of revision of total replacement of left knee joint: Status: Acute Permanent problem details: Diagnosis: Left knee severe degenerative osteoarthritis with varus deformity, significant flexion contracture, and significant bone loss with large osteophytes Post-op findings: Very large osteophytes. Medial bone loss which was very significant. Complete obliteration of cartilage. Fixed flexion contracture of at least 20 degrees. Severe varus deformity and lack of motion. Procedure done: Revision cemented left total knee arthroplasty utilizing revision tibial components with augment and stem to the tibia Implants: [employer] total knee system with a size 5 universal cemented triathlon tibial baseplate, a triathlon total knee cemented stem size 12 mm x 50 mm, tibial augment medial half block, size 5 x 10 mm for medial tibia, a size 5 right posterior stabilized cemented triathlon femur. The triathlon X3 total stabilizer plus tibial insert size 5 x 13 mm and an asymmetric patella size 35 x 10 mm (2) Primary osteoarthritis of left knee: Status: Acute (3) Varus deformity, not elsewhere classified, left knee: Status: Acute (4) Flexion contracture of left knee: Status: Acute Reason for Visit Reason for Visit: M17.9 Brief History: This is a 76-year-old gentleman presenting today for left total knee arthroplasty.? When he was initially seen in my office, he presented to clinic in a wheelchair due to bilateral knee severe arthritis and deformities. He states he has had left knee pain for several years. He reports stiffness, swelling, and popping. He states his left knee pops out of place . He reports difficulty standing and walking. He rates his pain a 10/10 while ambulating. He denies any pain while sitting and resting. He explains he was evaluated 2 years ago for a left total knee arthroplasty, but he had to put this off secondary to life events regarding his .? Today, he presents for revision total knee arthroplasty, utilizing revision components, secondary to severe deformity and flexion contracture.? Preoperatively, consents were signed and questions were answered. Hospital Course Hospital Course This 76-year-old gentleman was admitted initially under observation status and subsequently converted to inpatient following total knee arthroplasty with revision components on the left. On the first postoperative day, the patient attempted to work with physical therapy, but he noted that pain precluded this. He did not feel safe going home, and therefore, he was maintained in the hospital an additional night. On the first postoperative day, his potassium was significantly decreased, but this was supplemented up into a normal range. On second postoperative day, the patient was doing well. Physical therapy stated he did much better and was ready for discharge to home. The patient was in agreement. Dressing was removed the day before, and the leg was benign. There was no evidence of DVT. There was minimal to no swelling. The patient will be discharged to home. He will follow-up with me as scheduled. Physical Exam Const: COMMON NORMALS: no acute distress, average body habitus, patient oriented x3 and alert GENERAL APPEARANCE: cooperative and comfortable ORIENTATION/CONSCIOUSNESS: Yes awake HENMT: COMMON NORMALS: normocephalic and atraumatic HEAD & SCALP: normocephalic and atraumatic Eye: GENERAL EYE: appearance normal, both eyes and all related structures Chest: COMMONS NORMALS: normal inspection of the chest Resp: COMMON NORMALS: normal respiratory effort EFFORT & INSPECTION: Yes able to speak in complete sentences and Yes symmetric chest movement Neuro: COMMON NORMALS: patient oriented x3 SENSORIUM/ORIENTATION: Yes alert Psych: COMMON NORMALS: mental status grossly normal APPEARANCE: Yes grossly normal ATTITUDE: Yes calm and Yes engaged ATTENTION/CONCENTRATION: Yes attention grossly intact Skin: COMMON NORMALS: no rashes or lesions noted GENERAL SKIN EXAM: no rashes or lesions noted Urinary Catheter Management: Desir: Cath Placed During This Visit: yes, but has since been removed by the nurse Reason for Continuing Indwelling Catheter: Decision to DC Catheter Urinary Catheter Date of Insertion: 08/09/22 Urinary Catheter Time of Insertion: 07:35 Date Urinary Catheter Removed: 08/10/22 Time Urinary Catheter Discontinued: 06:00 Discharge Data Studies Completed and Pending Completed Studies During Hospitalization Category Date Time Status XR knee LT 1-2V 20299 Routine Exams 08/09/22 11:16 Completed Radiology Impressions Knee X-Ray 08/09/22 11:16 Impression: Left knee arthroplasty. Laboratory Results WBC 12.2 10^3/uL (4.0-10.0) H 08/10/22 04:54 RBC 3.53 10^6/uL (4.1-5.3) L 08/10/22 04:54 Hgb 11.0 g/dL (11.7-16.6) L 08/10/22 04:54 Hct 32.9 % (42.0-52.0) L 08/10/22 04:54 MCV 93.2 fl (80-94) 08/10/22 04:54 MCH 31.2 pg (28.0-34.0) 08/10/22 04:54 MCHC 33.4 g/dL (30.0-36.0) 08/10/22 04:54 RDW 17.9 % (12.1-15.1) H 08/10/22 04:54 Plt Count 188 10^3/cmm (130-400) 08/10/22 04:54 MPV 8.4 fL (7.4-10.4) 08/10/22 04:54 Neut % (Auto) 70.9 % 08/10/22 04:54 Lymph % (Auto) 14.8 % 08/10/22 04:54 [place] % (Auto) 13.3 % 08/10/22 04:54 Eos % (Auto) 0.1 % 08/10/22 04:54 Baso % (Auto) 0.2 % 08/10/22 04:54 Neut # (Auto) 8.61 10^3/uL (1.8-7.7) H 08/10/22 04:54 Lymph # (Auto) 1.8 10^3/uL (0.8-4.8) 08/10/22 04:54 [place] # (Auto) 1.6 10^3/uL (0.2-0.9) H 08/10/22 04:54 Eos # (Auto) 0.0 10^3/uL (0.0-0.8) 08/10/22 04:54 Baso # (Auto) 0.0 10^3/uL (0.0-0.1) 08/10/22 04:54 Nucleated RBC % (auto) 0 % 08/10/22 04:54 Nucleated RBCs # 0.0 /100WBC 08/10/22 04:54 Sodium 138 mmol/L (136-145) 08/10/22 04:54 Potassium 3.9 mmol/L (3.5-5.1) 08/10/22 17:21 Chloride 94 mmol/L (98-107) L 08/10/22 04:54 Carbon Dioxide 29 mmol/L (22-29) 08/10/22 04:54 Anion Gap 17.8 (5-19) 08/10/22 04:54 BUN 53 mg/dL (8-23) H 08/10/22 04:54 Creatinine 3.7 mg/dL (0.7-1.2) H 08/10/22 04:54 GFR Calculation Not Reportable 08/10/22 04:54 Glucose 114 mg/dL (65-115) 08/10/22 04:54 POC Glucose 129 mg/dL (70-110) H 08/09/22 06:37 Calculated Osmolality 301 mOsm/kg (285-295) H 08/10/22 04:54 Calcium 9.4 mg/dL (8.5-10.5) 08/10/22 04:54 Total Bilirubin 0.5 mg/dL (0.15-1.2) 08/02/22 10:42 AST 22 U/L (0-40) 08/02/22 10:42 ALT 26 U/L (0-41) 08/02/22 10:42 Alkaline Phosphatase 109 U/L (40-130) 08/02/22 10:42 Total Protein 6.6 g/dL (6.6-8.7) 08/02/22 10:42 Albumin 3.6 g/dL (3.5-5.2) 08/02/22 10:42 Globulin 3.0 g/dL (1.3-4.6) 08/02/22 10:42 Urine Color Yellow (Yellow) 08/02/22 10:51 Urine Appearance Clear (CLEAR) 08/02/22 10:51 Urine pH 5 (5-7) 08/02/22 10:51 Ur Specific [place] 1.020 (1.005-1.030) 08/02/22 10:51 Urine Protein 3+ (Negative) H 08/02/22 10:51 Urine Glucose (UA) Norm (Normal) 08/02/22 10:51 Urine Ketones Negative (Negative) 08/02/22 10:51 Urine Blood 2+ (Negative) H 08/02/22 10:51 Urine Nitrate Negative (Negative) 08/02/22 10:51 Urine Bilirubin Neg (Negative) 08/02/22 10:51 Urine Urobilinogen Norm mg/dL (Negative) 08/02/22 10:51 Ur Leukocyte Esterase Negative (Negative) 08/02/22 10:51 Urine RBC None /hpf (0-2) 08/02/22 10:51 Urine WBC Rare /hpf (0-5) 08/02/22 10:51 Ur Squamous Epith Cells None /hpf (0-5) 08/02/22 10:51 Amorphous Sediment Not Reportable 08/02/22 10:51 Urine Bacteria 1+ /hpf (NONE) H 08/02/22 10:51 Hyaline Casts 0-4 /lpf H 08/02/22 10:51 Hep Bs Antigen Non-reactive (Nonreactive) 08/09/22 13:35 Hepatitis C Antibody Non-reactive (Nonreactive) 08/09/22 13:35 HIV 1&2 Ab & HIV 1 Ag Non-reactive (Non-Reactiv) 08/09/22 13:35 HIV 1&2 Antibody Non-reactive (Non-Reactiv) 08/09/22 13:35 Vitals Last Vital Signs Temp 98.2 F 08/10/22 23:36 Pulse 81 08/11/22 10:58 Resp 18 08/11/22 11:37 BP 151/79 08/11/22 08:01 Pulse Ox 97 08/11/22 10:56 O2 Del Method Room Air 08/11/22 10:56 O2 Flow Rate 2 08/11/22 07:38 Discharge Plan Discharge Patient Disposition: Home Health Service Condition: Stable Prescriptions: New acetaminophen 500 mg Tablet 1,000 mg PO Q8H 15 Days Qty: 90 0RF aspirin 325 mg Tablet,Delayed Release (Dr/Ec) 325 mg PO DAILY 30 Days Qty: 30 0RF oxycodone 5 mg Tablet 5 mg PO Q4H PRN (Reason: Moderate Pain) 7 Days Qty: 30 0RF Continued (DME) [id number] See Rx Instructions .Route .MEDSUPPLY Qty: 1 0RF Rx Instructions: As directed potassium chloride 20 mEq tablet,ER particles/crystals 60 meq PO DAILY Patient Comments: Dr. Andre increase 03/10/21 prednisone 20 mg tablet 20 mg PO DAILY (DME) Wheelchair See Rx Instructions .Route .MEDSUPPLY Qty: 1 0RF Rx Instructions: As directed naloxone [Narcan] 4 mg/actuation spray,non-aerosol 1 spray intranasal Q3M Qty: 2 0RF Rx Instructions: spray 1 dose into ONE nostril; alternate nostrils w each dose until help arrives atorvastatin 80 mg tablet 80 mg PO DAILY Qty: 90 0RF cholecalciferol (vitamin D3) 1,250 mcg (50,000 unit) capsule 50,000 unit PO .weekly Qty: 4 2RF Trelegy Ellipta 100-62.5-25 mcg blister with device 1 inh inhalation DAILY Qty: 60 2RF levothyroxine 150 mcg tablet 150 mcg PO DAILY Qty: 30 2RF tamsulosin [Flomax] 0.4 mg capsule 0.4 mg PO .2 times day Qty: 180 0RF tramadol 50 mg tablet 50 mg PO Q6H PRN (Reason: pain) Qty: 120 2RF Rybelsus 3 mg tablet 3 mg PO DAILY 30 Days Qty: 30 0RF (DME) OneTouch Ultra Test Strip See Rx Instructions .Route Qty: 50 5RF Rx Instructions: one daily (DME) blood-glucose meter [OneTouch Ultra2 Meter] Kit See Rx Instructions .Route Qty: 1 0RF Rx Instructions: As directed ([facility] [place]) lancets [OneTouch Delica Lancets] 33 gauge misc See Rx Instructions .Route Qty: 100 5RF Rx Instructions: one day Praluent Pen 75 mg/mL pen injector 75 mg SUBCUT Q14D Qty: 2 5RF Rx Instructions: inject into abdomen, thigh, or upper arm (deltoid muscle); rotate sites magnesium L-lactate [Magtab] 84 mg tablet extended release 84 mg PO BID Qty: 60 5RF metoprolol tartrate 50 mg tablet 50 mg PO BID Qty: 180 3RF Hold Instructions: Low heart rate Rx Instructions: Dose increased levalbuterol tartrate 45 mcg/actuation HFA aerosol inhaler 2 inh inhalation Q6H PRN (Reason: shortness of breath or wheezing) Qty: 15 0RF bumetanide 2 mg tablet 2 mg PO BID PRN (Reason: swelling) Qty: 100 0RF Held aspirin 81 mg tablet,delayed release (DR/EC) 81 mg PO DAILY Hold Instructions: Resume on 09/08/22. Discharge Orders: Discharge Order (Routine); Ordered 08/11/22 Ordered By: Sarai Tompkins Referrals: [facility] [place] [facility] ([facility]) [Outside] Sarai Tompkins MD [Physician] - 08/23/22 9:45 am Discharge Diet: Advance as tolerated and Usual diet Discharge Activity: Increase activity as tolerated, Limit activity as instructed, Use walker/crutches as instructed and As per PT/OT instructions Activity Restrictions/Additional Instructions: Ice to Left Knee, Weight bear as tolerated, Range of motion, Strengthening, and gait training per PT Discharge Attestations Time Spent in Discharge Care*: greater than 30 min Specific Discharge Activities: educating patient, documenting/other paperwork and evaluating patient/reviewing data Quality Metrics Clinical Quality Measures [ No reported AMI, CVA or VTE this stay] Coding Level of Care Code Acute Code for Chg Fwd Diagnoses History of revision of total replacement of left knee joint Z96.652 Primary osteoarthritis of left knee M17.12 Varus deformity, not elsewhere classified, left knee M21.162 Flexion contracture of left knee M24.562
== END 2022-08-11 15:23 | disposition home health service (06) | DRG 470 ==
LOC: MEDSURG 16:31
PROVIDERS: Anesthesiology; Admitting Provider Specialist; PCP Nurse Practitioner; Visit Provider Specialist
PROC: 0SRD0J9 Replacement of Left Knee Joint with Synthetic Substitute, Cemented, Open Approach (ICD-10-PCS; principal; 2022-08-09 07:00)
DX: M17.12 Unilateral primary osteoarthritis, left knee (principal); M21.162 Varus deformity, not elsewhere classified, left knee; M25.762 Osteophyte, left knee; M21.262 Flexion deformity, left knee
CPT/HCPCS: 36415; 36416; 51702; 73560; 80048; 80053; 81001; 82962; 84132; 85025; 86803; 87340; 87806; 94640; 97110; 97116; 97161; 97166; 97530; 97535; A9281; C1776; C9290; G0378; J0131; J0690; J1170; J2370; J2704; J2795; J2930; J3010; J3370; J3480; J3490; J7030; J7050; J7512; J7626

== ENCOUNTER → 2022-08-23 09:24 | Outpatient (BNVA) | payer MEDICARE, MEDICAID, SELFPAY | PROVIDERS: PCP Nurse Practitioner; Visit Provider Nurse Practitioner Family | DX: Z96.652 Presence of left artificial knee joint (principal) | CPT/HCPCS: 73560; 73565; 99024 ==

== ENCOUNTER 2022-08-31 11:55 | Outpatient (CLI) | payer MEDICARE, MEDICAID, SELFPAY ==
[2022-08-31 12:44] LABS: Basophils # 0.1 10^3/uL (0.0-0.1); Basophils % 0.5 %; Eosinophils # 0.1 10^3/uL (0.0-0.8); Eosinophils % 0.8 %; Hematocrit 34.9 % (42.0-52.0); Hemoglobin 11.3 g/dL (11.7-16.6); Lymphocytes # 1.6 10^3/uL (0.8-4.8); Lymphocytes % 15.5 %; Mean Corpuscular HGB Conc 32.4 g/dL (30.0-36.0); Mean Corpuscular Hemoglobin 30.7 pg (28.0-34.0); Mean Corpuscular Volume 94.8 fl (80-94); Mean Platelet Volume 8.7 fL (7.4-10.4); Monocytes # 0.9 10^3/uL (0.2-0.9); Monocytes % 8.9 %; Neutrophils % 73.5 %; Nucleated Red Blood Cells % 0 %; Platelet Count 197 10^3/cmm (130-400); Red Blood Count 3.68 10^6/uL (4.1-5.3); Red Cell Distribution Width 17.3 % (12.1-15.1); White Blood Count 10.6 10^3/uL (4.0-10.0)
[2022-08-31 13:14] LABS: Estmated Average Glucose 131; Hemoglobin A1C 6.2 % (4.0-6.0)
[2022-08-31 13:28] LABS: 25 Hydroxy Vitamin D 39 ng/mL (30-100); Alanine Aminotransferase 10 U/L (0-41); Albumin Level 3.5 g/dL (3.5-5.2); Alkaline Phosphatase 143 U/L (40-130); Anion Gap 16.5 (5-19); Aspartate Amino Transferase 12 U/L (0-40); Blood Urea Nitrogen 36 mg/dL (8-23); Calcium 8.7 mg/dL (8.5-10.5); Carbon Dioxide 28 mmol/L (22-29); Chloride 96 mmol/L (98-107); Chol HDL Ratio 3.84 mg/dL (1.0-5.00); Cholesterol 165 mg/dL (0-200); Globulin 2.9 g/dL (1.3-4.6); Glucose 128 mg/dL (65-115); HDL Cholesterol 43 mg/dL (60-100); LDL Cholesterol Calculated 71 mg/dL (50-129); Osmolality Calculated 294 mOsm/kg (285-295); Potassium 3.5 mmol/L (3.5-5.1); Sodium 137 mmol/L (136-145); Total Bilirubin 0.4 mg/dL (0.15-1.2); Total Protein 6.4 g/dL (6.6-8.7); Triglycerides 255 mg/dL (0-150); VLDL Cholestrol Calculation 51 mg/dL (0-30)
== END 2022-08-31 11:56 | disposition home or self-care (01) ==
LOC: LAB 12:03
PROVIDERS: PCP Nurse Practitioner; Visit Provider Nurse Practitioner
DX: E11.65 Type 2 diabetes mellitus with hyperglycemia (principal); E55.9 Vitamin D deficiency, unspecified
CPT/HCPCS: 36415; 73560; 73565; 80053; 80061; 82306; 83036; 84443; 85025

== ENCOUNTER → 2022-08-31 12:05 | Outpatient (BNVA) | payer MEDICARE, MEDICAID, SELFPAY | PROVIDERS: PCP Nurse Practitioner; Visit Provider Nurse Practitioner Family | DX: Z96.652 Presence of left artificial knee joint (principal); L53.9 Erythematous condition, unspecified | CPT/HCPCS: 97760; 99024; 99214; L1832 ==

== ENCOUNTER 2022-08-31 15:43 | Outpatient (CLI) | payer MEDICARE, MEDICAID, SELFPAY | END 2022-08-31 15:44 | disposition home or self-care (01) | LOC: SPT 15:43 | PROVIDERS: PCP Nurse Practitioner; Visit Provider Nurse Practitioner Family | DX: Z46.89 Encounter for fitting and adjustment of other specified devices (principal); Z96.652 Presence of left artificial knee joint; R53.1 Weakness | CPT/HCPCS: 97110; 97162 ==

== ENCOUNTER 2022-09-16 11:27 | Outpatient (CLI) | payer MEDICARE, MEDICAID, SELFPAY ==
--- NOTE | 2022-09-16 12:45 | US_ITS ---
WS: [id number] Ultrasound of the left anterior thigh to evaluate quadriceps muscle, 09/16/2022 Clinical Data: trauma fall Comparison: None. Findings: The subcutaneous tissue of the left anterior thigh shows no cysts, masses or evidence of hematoma. Th e quadriceps muscle was examined from the groin to the knee. No muscle tear or intramuscular abnormal ity could be seen. The patient has a left knee arthroplasty. US/US soft tissue/extremity 61280 Impression: Negative ultrasound of the anterior left thigh with no evidence of quadriceps m uscle abnormality.
== END 2022-09-16 11:28 | disposition home or self-care (01) ==
LOC: RAD 11:29
PROVIDERS: PCP Nurse Practitioner; Visit Provider Nurse Practitioner Family
DX: S89.92XA Unspecified injury of left lower leg, initial encounter (principal); Z96.652 Presence of left artificial knee joint; X58.XXXA Exposure to other specified factors, initial encounter
CPT/HCPCS: 76882

== ENCOUNTER → 2022-09-21 12:49 | Outpatient (BNVA) | payer MEDICARE, MEDICAID, SELFPAY | PROVIDERS: PCP Nurse Practitioner; Visit Provider Nurse Practitioner Family | DX: Z96.652 Presence of left artificial knee joint (principal) | CPT/HCPCS: 99213 ==

== ENCOUNTER → 2022-09-27 16:27 | Outpatient (BNVA) | payer MEDICARE, MEDICAID, SELFPAY | PROVIDERS: PCP Nurse Practitioner; Visit Provider Nurse Practitioner | DX: N18.9 Chronic kidney disease, unspecified (principal) | CPT/HCPCS: 80069; 82310; 82570; 82607; 83970; 84156; 85025 ==

== ENCOUNTER → 2022-09-30 10:03 | Outpatient (BNVA) | payer MEDICARE, MEDICAID, SELFPAY | PROVIDERS: PCP Nurse Practitioner; Visit Provider Internal Medicine Nephrology | DX: N18.9 Chronic kidney disease, unspecified (principal) | CPT/HCPCS: 80069 ==

== ENCOUNTER → 2022-10-06 08:58 | Outpatient (BNVA) | payer MEDICARE, MEDICAID, SELFPAY | PROVIDERS: PCP Nurse Practitioner; Visit Provider Registered Nurse | DX: N18.9 Chronic kidney disease, unspecified (principal) | CPT/HCPCS: 80053; 82570; 84156 ==

== ENCOUNTER → 2022-10-10 13:10 | Outpatient (BNVA) | payer MEDICARE, MEDICAID, SELFPAY | PROVIDERS: PCP Nurse Practitioner; Visit Provider Internal Medicine Pulmonary Disease | DX: J44.9 Chronic obstructive pulmonary disease, unspecified (principal); Z87.891 Personal history of nicotine dependence; I10 Essential (primary) hypertension; N18.9 Chronic kidney disease, unspecified; E88.09 Other disorders of plasma-protein metabolism, not elsewhere classified; R60.1 Generalized edema | CPT/HCPCS: 99214 ==

== ENCOUNTER 2022-10-17 13:52 | Outpatient (CLI) | payer MEDICARE, MEDICAID, SELFPAY ==
--- NOTE | 2022-10-17 14:15 | CT_ITS ---
WS: [id number] LDCT LUNG CANCER SCREENING HISTORY: cancer screening TECHNIQUE: Axial imaging performed from the apices to 1 cm below the costophrenic angles. Coronal and sagittal reformats are submitted with axial MIP series. All CT scans at [facility] use at least one of these dose optimization techniques: automated exposure control; mA and/or kV adjustment per patient size (includes targeted exams where dose is matched to clinical indication); or iterativ e reconstruction. DLP: 112.81 mGy.cm DIvol: Mean CTDIvol: 2.60 (mGy) COMPARISON: 07/01/2021 Diagnostic quality: Satisfactory Lungs: Severe emphysema. Bullous and bleb disease. Linear scar LEFT upper lobe. Additional mosaic att enuation throughout both lungs. Scarring and fibrotic changes RIGHT lower lobe with mild progression since the prior study. There is no dense consolidation. No mass. No endobronchial lesion. Heart: Normal size heart with no pericardial effusion.. Other findings: Normal size pulmonary artery. Mild atherosclerosis aorta. No adenopathy. Moderate cor onary artery calcification. Small hiatal hernia. CT/CT lung screening 26412 IMPRESSION: LUNG-RADS: 1-Negative FOLLOW UP: 12 Month: Continue annual screening with LDCT OTHER FINDINGS (S MODIFIER): None.
== END 2022-10-17 13:53 | disposition home or self-care (01) ==
LOC: RAD 13:52
PROVIDERS: PCP Nurse Practitioner; Visit Provider Internal Medicine Pulmonary Disease
DX: Z12.2 Encounter for screening for malignant neoplasm of respiratory organs (principal); Z87.891 Personal history of nicotine dependence
CPT/HCPCS: 71271

== ENCOUNTER → 2022-10-19 10:41 | Outpatient (BNVA) | payer MEDICARE, MEDICAID, SELFPAY | PROVIDERS: PCP Nurse Practitioner; Visit Provider Nurse Practitioner Family | DX: Z96.652 Presence of left artificial knee joint (principal) | CPT/HCPCS: 73560; 73565; 99024 ==

== ENCOUNTER → 2022-11-03 09:24 | Outpatient (BNVA) | payer MEDICARE, MEDICAID, SELFPAY | PROVIDERS: PCP Nurse Practitioner; Visit Provider Registered Nurse | DX: I12.9 Hypertensive chronic kidney disease with stage 1 through stage 4 chronic kidney disease, or unspecified chronic kidney disease (principal); N18.9 Chronic kidney disease, unspecified | CPT/HCPCS: 80069; 82310; 82570; 82607; 83970; 84156; 85025 ==

== ENCOUNTER → 2022-11-28 09:10 | Outpatient (BNVA) | payer MEDICARE, MEDICAID, SELFPAY | PROVIDERS: PCP Nurse Practitioner; Visit Provider Registered Nurse | DX: N18.9 Chronic kidney disease, unspecified (principal) | CPT/HCPCS: 80069; 82306; 82310; 82570; 83970; 84156; 85025 ==

== ENCOUNTER → 2022-12-13 11:19 | Outpatient (BNVA) | payer MEDICARE, MEDICAID, SELFPAY | PROVIDERS: PCP Nurse Practitioner; Visit Provider Nurse Practitioner | DX: E11.65 Type 2 diabetes mellitus with hyperglycemia (principal) | CPT/HCPCS: 80076; 83036 ==

== ENCOUNTER → 2023-02-27 09:52 | Outpatient (BNVA) | payer MEDICARE, MEDICAID, SELFPAY | PROVIDERS: PCP Nurse Practitioner; Visit Provider Registered Nurse | DX: N18.9 Chronic kidney disease, unspecified (principal); E11.65 Type 2 diabetes mellitus with hyperglycemia; E78.2 Mixed hyperlipidemia | CPT/HCPCS: 80048; 80061; 80069; 82310; 82570; 83036; 83970; 84156; 85025 ==

== ENCOUNTER → 2023-03-20 10:35 | Outpatient (BNVA) | payer MEDICARE, MEDICAID, SELFPAY | PROVIDERS: PCP Nurse Practitioner; Visit Provider Registered Nurse | DX: N18.9 Chronic kidney disease, unspecified (principal); N04.1 Nephrotic syndrome with focal and segmental glomerular lesions | CPT/HCPCS: 80069; 80158 ==

== ENCOUNTER 2023-03-28 10:45 | Emergency (ER) | payer MEDICARE, MEDICAID, SELFPAY ==
[2023-03-28 10:50] VITALS: BP 135/82; PULSE 68; RESP 18; TEMP 36.6; O2SAT 93; BMI 37.5
[2023-03-28 11:17] VITALS: BP 165/85; PULSE 63; O2SAT 91
--- NOTE | 2023-03-28 11:18 | ECG_ITS ---
[facility] Test Date: 2023-03-28 Pat Name: Matthew Chong Department: Room: Gender: Male [employer]: : 1945 Requested By: Codey Talavera Order Number: [id number] Surya MD: Gem Reaves M.D. Measurements Intervals [place] Rate: 61 P: -20 NM: 200 QRS: -51 QRSD: 113 T: 38 QT: 417 QTc: 422 Interpretive Statements SINUS RHYTHM RIGHT BUNDLE BRANCH BLOCK LEFT ANTERIOR FASCICULAR BLOCK [QRS AXIS <= -45, QR IN I, RS IN II] MODERATE VOLTAGE CRITERIA FOR LVH, CONSIDER NORMAL VARIANT Compared to ECG 08/02/2022 11:24:23 Incomplete right bundle-branch block now present Right bundle-branch block no longer present Electronically Signed On 03-28-2023 14:54:55 [employer] by Gem Reaves M.D. [id number]
--- NOTE | 2023-03-28 11:24 | W.ED.GENADLT ---
HPI - General Adult General: Chief complaint: General Medical Stated complaint: abnormal labs,kidney Dr sent Time Seen by Provider: 03/28/23 11:00 Source: patient Mode of arrival: ambulatory History of Present Illness: 77-year-old male presents emergency room directed here by his primary care doctor because of abnormal lab results. Patient denies feeling ill. No chest pain or abdominal pain no fever sweats chills. No nausea vomiting or diarrhea. No hematochezia melena hematemesis cough, or he does still create urine patient a disc urgency or frequency. Associated symptoms: Deny chest pain, confusion, cough, diaphoresis, decreased appetite, dyspnea, fevers/chills, headache(s), malaise, nausea, rash, palpitations, seizures, short of breath, syncope, vomiting or weakness Treatments prior to arrival: none Review of Systems Const: Denies: fever(s), chills, malaise or diaphoresis Card: Denies: chest pain, palpitations or syncope Resp: Denies: dyspnea GI: Denies: abdominal pain, nausea or vomiting : Denies: dysuria, urinary frequency or urinary urgency Musc: Denies: neck pain or back pain Skin/Breast: Denies: rash Neuro: Denies: headache(s) or confusion PFSH ED PFSH: Medical History Diabetes mellitus with hyperglycemia, without long-term current use of insulin Arteriosclerotic heart disease (ASHD) Obstruction of right ureter Enlarged prostate Neutrophilic leukocytosis Hypokalemia due to excessive renal loss of potassium History of severe acute respiratory syndrome coronavirus 2 (SARS-CoV-2) disease Extrinsic ureteral obstruction Hydronephrosis, right Vitamin D deficiency Hypertension Personal history of nicotine dependence Mixed hyperlipidemia DJD (degenerative joint disease) AAA (abdominal aortic aneurysm) CKD (chronic kidney disease) COPD (chronic obstructive pulmonary disease) Adult hypothyroidism Surgical History History of endovascular stent graft for abdominal aortic aneurysm (AAA) July 2017 History of appendectomy History of cataract surgery Both eyes History of colonoscopy 2012 Family History Mother , AT AGE 71 Stroke Clotting disorder Grandmother Stroke Father , AT AGE 76 Hypertension Stroke Clotting disorder Other CAD (coronary artery disease) Dementia Diabetes Lung disease Denies family history of Psychiatric illness Chronic kidney disease (CKD) Suicide Anesthesia complication Bleeding disorder Cancer Social History Smoking and tobacco/nicotine status: former use of tobacco/nicotine Quit status (tobacco/nicotine): has quit using Year quit tobacco: 2020 Former quit date comment: [id number] Second hand smoke exposure: Yes Alcohol intake: never Substance/Drug Use: never Adopted: No Caregiver/support person: No Lives independently: Yes Household members: spouse and none Housing: Other Marital status: / service: Yes branch: [employer] Current occupational status: retired Current occupational exposures/hazards: No Do you think of yourself as: Straight/Heterosexual Current gender identity: Male Physical Exam Const: COMMON NORMALS: no acute distress GENERAL APPEARANCE: cooperative and comfortable ORIENTATION/CONSCIOUSNESS: Yes awake, Yes oriented to person, Yes oriented to place and Yes oriented to time HENMT: COMMON NORMALS: normocephalic, atraumatic and hearing grossly normal bilaterally HEAD & SCALP: normocephalic and atraumatic Resp: COMMON NORMALS: normal respiratory effort, No retractions, No use of accessory muscles and clear to auscultation bilaterally AUSCULTATION: clear to auscultation bilaterally Cardio: COMMON NORMALS: regular rate, regular rhythm and No murmurs present (Cardio) RATE: regular rate RHYTHM: regular rhythm GI: COMMON NORMALS: Soft to palpation and No hepatosplenomegaly present AUSCULTATION: Yes normoactive bowel sounds PALPATION: Yes Soft to palpation, No Tenderness to palpation present (GI), No Guarding due to palpation present (GI) and Yes No hepatosplenomegaly present Extremity: COMMON NORMALS: normal to inspection, capillary refill normal, no clubbing, cyanosis or edema, no calf tenderness and no pedal edema Neuro: SENSORIUM/ORIENTATION: Yes oriented to person, Yes oriented to place and Yes oriented to time Skin: COMMON NORMALS: no rashes or lesions noted GENERAL SKIN EXAM: no rashes or lesions noted Course Vital Signs: Vital signs: Vital Signs Temperature 97.8 F 03/28/23 10:50 Pulse Rate 59 L 03/28/23 12:50 Respiratory Rate 18 03/28/23 10:50 Blood Pressure 179/90 03/28/23 12:50 Pulse Oximetry 94 03/28/23 12:50 Oxygen Delivery Me thod Room Air 03/28/23 12:21 MDM - General Adult Medical Decision Making Kidney disease creatinine slightly elevated. Recommend holding Bumex. Follow-up with primary care within the next week Medical Records I reviewed the patient's medical records. Lab Data I reviewed the patient's lab results. 03/28/23 11:15 03/28/23 11:15 Laboratory Results WBC 7.24 10^3/uL (3.29-11.43) 03/28/23 11:15 RBC 4.03 10^6/uL (3.85-5.65) 03/28/23 11:15 Hgb 11.80 g/dL (11.27-16.99) 03/28/23 11:15 Hct 37.4 % (37-53) 03/28/23 11:15 MCV 92.8 fl (82-101) 03/28/23 11:15 MCH 29.3 pg (27-33) 03/28/23 11:15 MCHC 31.6 g/dL (30-55) 03/28/23 11:15 RDW 15.5 % (12.1-15.1) H 03/28/23 11:15 Plt Count 243 10^3/cmm (157-399) 03/28/23 11:15 MPV 8.6 fL (7.4-10.4) 03/28/23 11:15 Neut % (Auto) 43.4 % 03/28/23 11:15 Lymph % (Auto) 38.4 % 03/28/23 11:15 [place] % (Auto) 12.6 % 03/28/23 11:15 Eos % (Auto) 4.7 % 03/28/23 11:15 Baso % (Auto) 0.8 % 03/28/23 11:15 Neut # (Auto) 3.14 10^3/uL (1.8-7.7) 03/28/23 11:15 Lymph # (Auto) 2.8 10^3/uL (0.8-4.8) 03/28/23 11:15 [place] # (Auto) 0.9 10^3/uL (0.2-0.9) 03/28/23 11:15 Eos # (Auto) 0.3 10^3/uL (0.0-0.8) 03/28/23 11:15 Baso # (Auto) 0.1 10^3/uL (0.0-0.1) 03/28/23 11:15 Nucleated RBC % (auto) 0 % 03/28/23 11:15 Nucleated RBCs # 0.0 /100WBC 03/28/23 11:15 Sodium 133 mmol/L (136-145) L 03/28/23 11:15 Potassium 4.7 mmol/L (3.5-5.1) 03/28/23 11:15 Chloride 99 mmol/L (98-107) 03/28/23 11:15 Carbon Dioxide 24 mmol/L (22-29) 03/28/23 11:15 Anion Gap 14.7 (5-19) 03/28/23 11:15 BUN 16 mg/dL (8-23) 03/28/23 11:15 Creatinine 3.4 mg/dL (0.7-1.2) H 03/28/23 11:15 GFR Calculation Not Reportable 03/28/23 11:15 Glucose 117 mg/dL (65-115) H 03/28/23 11:15 Calculated Osmolality 278 mOsm/kg (285-295) L 03/28/23 11:15 Calcium 10.0 mg/dL (8.5-10.5) 03/28/23 11:15 Total Bilirubin 0.5 mg/dL (0.15-1.2) 03/28/23 11:15 AST 12 U/L (0-40) 03/28/23 11:15 ALT 6 U/L (0-41) 03/28/23 11:15 Alkaline Phosphatase 257 U/L (40-130) H 03/28/23 11:15 Total Protein 6.3 g/dL (6.6-8.7) L 03/28/23 11:15 Albumin 2.8 g/dL (3.5-5.2) L 03/28/23 11:15 Globulin 3.5 g/dL (1.3-4.6) 03/28/23 11:15 Urine Color Yellow (Yellow) 03/28/23 11:41 Urine Appearance Clear (CLEAR) 03/28/23 11:41 Urine pH 5 (5-7) 03/28/23 11:41 Ur Specific [place] 1.025 (1.005-1.030) 03/28/23 11:41 Urine Protein 3+ (Negative) H 03/28/23 11:41 Urine Glucose (UA) Trace (Normal) H 03/28/23 11:41 Urine Ketones 1+ (Negative) H 03/28/23 11:41 Urine Blood 3+ (Negative) H 03/28/23 11:41 Urine Nitrate Negative (Negative) 03/28/23 11:41 Urine Bilirubin Neg (Negative) 03/28/23 11:41 Urine Urobilinogen Norm mg/dL (Negative) 03/28/23 11:41 Ur Leukocyte Esterase Negative (Negative) 03/28/23 11:41 Urine RBC 5-10 /hpf (0-2) H 03/28/23 11:41 Urine WBC Rare /hpf (0-5) 03/28/23 11:41 Ur Squamous Epith Cells 0-4 /hpf (0-5) H 03/28/23 11:41 Amorphous Sediment Trace /hpf 03/28/23 11:41 Urine Bacteria Trace /hpf (NONE) 03/28/23 11:41 Hyaline Casts 40-55 /lpf H 03/28/23 11:41 Fine Granular Casts 0-4 /lpf H 03/28/23 11:41 Urine Mucus 2+ /hpf 03/28/23 11:41 All radiology interpretation(s) finalized by discharge Discharge Plan Discharge Patient Disposition: Home Clinical Impression: CKD (chronic kidney disease) Qualifiers: Chronic kidney disease stage: unspecified stage Qualified Code(s): N18.9 - Chronic kidney disease, unspecified Condition: Stable Prescriptions: No Action (DME) [id number] See Rx Instructions .Route .MEDSUPPLY Qty: 1 0RF Rx Instructions: As directed potassium chloride 20 mEq tablet,ER particles/crystals 80 meq PO BEDTIME Patient Comments: Dr. Jes neely 03/10/21 aspirin 81 mg tablet,delayed release (DR/EC) 81 mg PO QAM Hold Instructions: Resume on 09/08/22. (DME) Wheelchair See Rx Instructions .Route .MEDSUPPLY Qty: 1 0RF Rx Instructions: As directed mupirocin 2 % ointment 1 applic topical BID Qty: 22 0RF Rx Instructions: until skin heal (DME) blood-glucose meter [Legal ShineTouch Ultra2 Meter] Kit See Rx Instructions .Route Qty: 1 0RF Rx Instructions: As directed (DME) lancets [OneTouch Delica Lancets] 33 gauge misc See Rx Instructions .Route Qty: 100 5RF Rx Instructions: one day (DME) [place] Knee Brace See Rx Instructions .Route .MEDSUPPLY Qty: 1 0RF Rx Instructions: As directed Praluent Pen 75 mg/mL pen injector 75 mg SUBCUT Q14D Qty: 2 5RF Rx Instructions: inject into abdomen, thigh, or upper arm (deltoid muscle); rotate sites atorvastatin 80 mg tablet 80 mg PO DAILY Qty: 90 0RF (DME) OneTouch Ultra Test Strip See Rx Instructions .Route Qty: 50 5RF Rx Instructions: one daily levalbuterol tartrate 45 mcg/actuation HFA aerosol inhaler 2 inh inhalation Q6H PRN (Reason: shortness of breath or wheezing) Qty: 15 2RF Rybelsus 3 mg tablet 3 mg PO DAILY 30 Days Qty: 30 2RF tramadol 50 mg tablet 50 mg PO Q6H PRN (Reason: pain) Qty: 120 2RF [id number] 40-10-5 % cream 1 applic topical .2 times day Qty: 30 2RF magnesium L-lactate [Magtab] 84 mg tablet extended release 84 mg PO BID Qty: 60 5RF metoprolol tartrate 50 mg tablet 50 mg PO BID Qty: 60 0RF Hold Instructions: Low heart rate Rx Instructions: Dose increased bumetanide 2 mg tablet 2 mg PO BID PRN (Reason: swelling) Qty: 100 0RF metolazone 5 mg tablet 5 mg PO DAILY cyclosporine modified 50 mg capsule 150 mg PO BID magnesium oxide 400 mg magnesium Tablet 400 mg PO QAM lidocaine 4 % adhesive patch,medicated 1 patch topical DAILY PRN (Reason: Pain) Rx Instructions: leave on most painful area for up to 12 hrs then off for 12 hours Flomax 0.4 mg capsule 0.4 mg PO BID levothyroxine 150 mcg tablet 150 mcg PO QAM ketoconazole 2 % cream 1 applic topical QAM cholecalciferol (vitamin D3) 1,250 mcg (50,000 unit) capsule 50,000 unit PO Q7D Narcan 4 mg/actuation spray,non-aerosol 1 spray intranasal Q3M PRN (Reason: overdose) Rx Instructions: spray 1 dose into ONE nostril; alternate nostrils w each dose until help arrives Marcos Tirado 100-62.5-25 mcg blister with device 1 inh inhalation QAM Discharge Orders: Discharge ED (Routine); Ordered 03/28/23 Ordered By: Codey Martinez Referrals: Carlos Brito, [facility] [Primary Care Provider] - Discharge Diet: Usual diet Discharge Activity: Resume usual activity Patient Instructions: Opioid Safety, Pain Management Activity Restrictions/Additional Instructions: Thank you for choosing [facility] for your healthcare needs today. Please realize this is an emergency room and that we are providing you with a medical screening exam and this may not be complete and all inclusive of all the testing and or work up that you may need to determine your ailment or severity of your illness. It is very important that you follow up as instructed or that you return to the Emergency Department should you have concerns or if your condition changes or worsens in any way. You were seen today with report of abnormal labs. You have chronic kidney disease her creatinine is chronically elevated is slightly up from where it has been in the past. 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 Coding Level of Care Code ED Chemistry Department Chair for Dylan Aguilar
[2023-03-28 11:26] LABS: Basophils # 0.1 10^3/uL (0.0-0.1); Basophils % 0.8 %; Eosinophils # 0.3 10^3/uL (0.0-0.8); Eosinophils % 4.7 %; Hematocrit 37.4 % (37-53); Lymphocytes # 2.8 10^3/uL (0.8-4.8); Lymphocytes % 38.4 %; Mean Corpuscular HGB Conc 31.6 g/dL (30-55); Mean Corpuscular Hemoglobin 29.3 pg (27-33); Mean Corpuscular Volume 92.8 fl (82-101); Mean Platelet Volume 8.6 fL (7.4-10.4); Monocytes # 0.9 10^3/uL (0.2-0.9); Monocytes % 12.6 %; Neutrophils # 3.14 10^3/uL (1.8-7.7); Neutrophils % 43.4 %; Nucleated Red Blood Cells % 0 %; Platelet Count 243 10^3/cmm (157-399); Red Blood Count 4.03 10^6/uL (3.85-5.65); Red Cell Distribution Width 15.5 % (12.1-15.1); White Blood Count 7.24 10^3/uL (3.29-11.43)
--- NOTE | 2023-03-28 11:32 | PC.PHAR ---
Addendum entered by Keyona Brown 03/28/23 12:16: [phone] Original Note: pt states he has a home health nurse that sets up his meds-called [facility] [place] [facility] [phone] vera states will see if they set his meds up and will fax med list if they do set his medications up-pt states his prednisone 5mg daily last filled 01/16/23 90d/s was changed to a different medication that he takes 3 tabs bid only med on ext med history that shows that would be cyclosorine modified 50mg take 3 caps bid filled on 03/07/23 30d/s-pt states he took am meds today-will enter medication that ext med history shows has been filled while waiting on med list from [facility]
[2023-03-28] MEDS: sodium chloride 0.9% 1,000 ML 999 ML IV (11:34)
[2023-03-28 11:39] LABS: Alanine Aminotransferase 6 U/L (0-41); Albumin Level 2.8 g/dL (3.5-5.2); Alkaline Phosphatase 257 U/L (40-130); Anion Gap 14.7 (5-19); Aspartate Amino Transferase 12 U/L (0-40); Blood Urea Nitrogen 16 mg/dL (8-23); Carbon Dioxide 24 mmol/L (22-29); Chloride 99 mmol/L (98-107); Globulin 3.5 g/dL (1.3-4.6); Glucose 117 mg/dL (65-115); Osmolality Calculated 278 mOsm/kg (285-295); Potassium 4.7 mmol/L (3.5-5.1); Sodium 133 mmol/L (136-145); Total Bilirubin 0.5 mg/dL (0.15-1.2); Total Protein 6.3 g/dL (6.6-8.7)
[2023-03-28 11:48] VITALS: BP 161/86; PULSE 58; O2SAT 94
[2023-03-28 12:02] LABS: Specific Gravity, Urine 1.025 (1.005-1.030); Urine Appearance Clear (CLEAR); Urine Color Yellow (Yellow); pH Urine 5 (5-7)
[2023-03-28 12:03] LABS: Add Urine Microscopic? YES; Bilirubin Urine Neg (Negative); Blood Urine 3+ (Negative); Glucose Urine UA Trace (Normal); Ketones Urine 1+ (Negative); Leukocyte Esterase Urine Negative (Negative); Nitrate Urine Negative (Negative); Protein Urine 3+ (Negative); Urobilinogen Urine Norm (Negative)
[2023-03-28 12:09] LABS: Amorphous Sediment Urine TRACE /hpf; Bacteria Urine TRACE /hpf; Mucus Urine 2+ /hpf; Squamous Epithelial Cell Urine 0-4 /hpf (0-5); WBC Urine RARE /hpf (0-5)
[2023-03-28 12:10] LABS: Fine Granular Casts Urine 0-4 /lpf; Hyaline Casts Urine 40-55 /lpf
[2023-03-28 12:13] LABS: Add Urine Culture? No
[2023-03-28 12:21] VITALS: BP 128/92; PULSE 58; O2SAT 92
[2023-03-28 12:50] VITALS: BP 179/90; PULSE 59; O2SAT 94
== END 2023-03-28 12:53 | disposition home or self-care (01) ==
PROVIDERS: Emergency Provider Family Medicine; PCP Nurse Practitioner
DX: E11.22 Type 2 diabetes mellitus with diabetic chronic kidney disease (principal); I12.9 Hypertensive chronic kidney disease with stage 1 through stage 4 chronic kidney disease, or unspecified chronic kidney disease; N18.9 Chronic kidney disease, unspecified; I25.10 Atherosclerotic heart disease of native coronary artery without angina pectoris; E78.2 Mixed hyperlipidemia; J44.9 Chronic obstructive pulmonary disease, unspecified; Z87.891 Personal history of nicotine dependence; Z79.82 Long term (current) use of aspirin
CPT/HCPCS: 80053; 81001; 85025; 93005; 96360; 99284; J7030

== ENCOUNTER → 2023-03-30 13:21 | Outpatient (BNVA) | payer MEDICARE, MEDICAID, SELFPAY | PROVIDERS: PCP Nurse Practitioner; Visit Provider Internal Medicine Pulmonary Disease | DX: J43.2 Centrilobular emphysema (principal); Z12.2 Encounter for screening for malignant neoplasm of respiratory organs; I10 Essential (primary) hypertension; R22.43 Localized swelling, mass and lump, lower limb, bilateral; Z87.891 Personal history of nicotine dependence | CPT/HCPCS: 99214 ==

== ENCOUNTER 2023-04-11 09:39 | Emergency (ER) | payer MEDICARE, MEDICAID, SELFPAY ==
--- NOTE | 2023-04-11 09:41 | XR_ITS ---
WS: [id number] Portable AP semiupright chest, 04/11/2023 Clinical Data: dyspnea/cough Comparison: Two-view chest, 04/08/2021 Findings: There is a patchy opacity in the right midlung unchanged. There are chronic opacities adjac ent to the right and left cardiac borders. The diaphragms are flattened. The heart is enlarged. No ac [place] pneumonia or pneumothorax is seen. The aortic arch and descending thoracic aorta show calcificati on and tortuosity. There are monitor leads on the chest wall. Impression: 1. Chronic changes in both lungs. 2. Cardiomegaly and atherosclerosis. 3. Hyperinflation.
[2023-04-11 09:48] VITALS: BP 149/83; PULSE 95; TEMP 36.6; O2SAT 92; BMI 38.3
[2023-04-11 09:55] LABS: Basophils # 0.1 10^3/uL (0.0-0.1); Basophils % 0.8 %; Eosinophils # 0.3 10^3/uL (0.0-0.8); Eosinophils % 3.4 %; Hematocrit 39.9 % (37-53); Lymphocytes # 2.8 10^3/uL (0.8-4.8); Lymphocytes % 28.2 %; Mean Corpuscular HGB Conc 31.3 g/dL (30-55); Mean Corpuscular Hemoglobin 29.1 pg (27-33); Mean Corpuscular Volume 92.8 fl (82-101); Mean Platelet Volume 7.8 fL (7.4-10.4); Monocytes # 0.9 10^3/uL (0.2-0.9); Monocytes % 9.4 %; Neutrophils # 5.66 10^3/uL (1.8-7.7); Neutrophils % 57.9 %; Nucleated Red Blood Cells % 0 %; Platelet Count 287 10^3/cmm (157-399); Red Cell Distribution Width 15.9 % (12.1-15.1); White Blood Count 9.78 10^3/uL (3.29-11.43)
[2023-04-11] MEDS: sodium chloride 0.9% 1,000 ML 999 ML IV (10:00)
[2023-04-11] MEDS: ondansetron 2 mg/ML SDV 2 mL 4 MG IVP (10:02)
[2023-04-11 10:03] VITALS: BP 149/83; PULSE 105; RESP 20; O2SAT 91
[2023-04-11 10:13] LABS: Alanine Aminotransferase 16 U/L (0-41); Albumin Level 3.1 g/dL (3.5-5.2); Alkaline Phosphatase 271 U/L (40-130); Aspartate Amino Transferase 18 U/L (0-40); Blood Urea Nitrogen 8 mg/dL (8-23); Calcium 10.4 mg/dL (8.5-10.5); Carbon Dioxide 24 mmol/L (22-29); Chloride 101 mmol/L (98-107); Globulin 3.6 g/dL (1.3-4.6); Glucose 115 mg/dL (65-115); Lipase 28 U/L (13-60); Osmolality Calculated 277 mOsm/kg (285-295); Sodium 134 mmol/L (136-145); Total Bilirubin 0.6 mg/dL (0.15-1.2); Total Protein 6.7 g/dL (6.6-8.7)
[2023-04-11 10:22] LABS: Add Urine Microscopic? YES; Bilirubin Urine Neg (Negative); Blood Urine 2+ (Negative); Glucose Urine UA Norm (Normal); Ketones Urine Negative (Negative); Leukocyte Esterase Urine Negative (Negative); Nitrate Urine Negative (Negative); Protein Urine 3+ (Negative); Urine Appearance Clear (CLEAR); Urine Color Yellow (Yellow); Urobilinogen Urine Norm (Negative); pH Urine 6 (5-7)
--- NOTE | 2023-04-11 10:26 | ED_ITS ---
HPI - Nausea/Vomiting/Diarrhea 2 General: Chief complaint: Nausea/Vomiting/Diarrhea Stated complaint: N/V, cant keep anything down Time Seen by Provider: 04/11/23 09:41 Source: patient Mode of arrival: ambulatory History of Present Illness: 69-year-old male presents emergency room with complaint of nausea and vomiting for the last week. He is able to eat a few things but almost everything makes him sick to his stomach. Most of the things he started to have made him vomit. He has a history of chronic kidney disease he states recently he had medication changed by his cream ripener but is not sure of the name of it. He denies any dysuria urgency or frequency no chest pain no shortness of breath no abdominal pain no hematochezia melena hematemesis or coffee-ground emesis MD elicited complaint: nausea and vomiting Associated nausea: Yes Exacerbating factors: eating Relieving factors: none Associated symtoms: Reports nausea; Denies altered mental status, anxiety, bloating, change in vision, chest pain, cough, diaphoresis, decreased urine output, dizziness, dysuria, epistaxis, fatigue, fecal incontinence, fevers/chills, headache(s), anorexia, malaise, myalgias, numbness, palpitations, rash, short of breath, syncope, tenesmus, tinnitus or weakness Review of Systems 2 Const: Denies: fatigue, malaise or diaphoresis Eyes: Denies: change in vision ENMT: Denies: tinnitus or epistaxis Card: Denies: chest pain, palpitations or syncope Resp: Denies: dyspnea GI: Reports: nausea; Denies: bloating or fecal incontinence : Denies: dysuria Musc: Denies: neck pain or back pain Skin/Breast: Denies: rash Neuro: Denies: headache(s) or dizziness Psych: Denies: anxiety PFSH ED 2 PFSH: Medical History Diabetes mellitus with hyperglycemia, without long-term current use of insulin Arteriosclerotic heart disease (ASHD) Obstruction of right ureter Enlarged prostate Neutrophilic leukocytosis Hypokalemia due to excessive renal loss of potassium History of severe acute respiratory syndrome coronavirus 2 (SARS-CoV-2) disease Extrinsic ureteral obstruction Hydronephrosis, right Vitamin D deficiency Hypertension Personal history of nicotine dependence Mixed hyperlipidemia DJD (degenerative joint disease) AAA (abdominal aortic aneurysm) CKD (chronic kidney disease) COPD (chronic obstructive pulmonary disease) Adult hypothyroidism Surgical History History of endovascular stent graft for abdominal aortic aneurysm (AAA) July 2017 History of appendectomy History of cataract surgery Both eyes History of colonoscopy 2012 Family History Mother , AT AGE 71 Stroke Clotting disorder Grandmother Stroke Father , AT AGE 76 Hypertension Stroke Clotting disorder Other CAD (coronary artery disease) Dementia Diabetes Lung disease Denies family history of Psychiatric illness Chronic kidney disease (CKD) Suicide Anesthesia complication Bleeding disorder Cancer Social History Smoking and tobacco/nicotine status: former use of tobacco/nicotine Quit status (tobacco/nicotine): has quit using Year quit tobacco: 2020 Former quit date comment: [id number] Second hand smoke exposure: Yes Alcohol intake: never Substance/Drug Use: never Adopted: No Caregiver/support person: No Lives independently: Yes Household members: spouse and none Housing: Other Marital status: / service: Yes branch: [employer] Current occupational status: retired Current occupational exposures/hazards: No Do you think of yourself as: Straight/Heterosexual Current gender identity: Male Physical Exam 2 Const: COMMON NORMALS: no acute distress EXAM LIMITATIONS: no altered mental status GENERAL APPEARANCE: cooperative and comfortable O RIENTATION/CONSCIOUSNESS: Yes awake, Yes oriented to person, Yes oriented to place and Yes oriented to time HENMT: COMMON NORMALS: normocephalic, atraumatic and hearing grossly normal bilaterally HEAD & SCALP: normocephalic and atraumatic Resp: COMMON NORMALS: normal respiratory effort, No retractions, No use of accessory muscles and clear to auscultation bilaterally AUSCULTATION: clear to auscultation bilaterally Cardio: COMMON NORMALS: regular rate, regular rhythm and No murmurs present (Cardio) RATE: regular rate RHYTHM: regular rhythm GI: COMMON NORMALS: Soft to palpation and No hepatosplenomegaly present A USCULTATION: Yes normoactive bowel sounds PALPATION: Yes Soft to palpation, No Tenderness to palpation present (GI), No Guarding due to palpation present (GI) and Yes No hepatosplenomegaly present Extremity: COMMON NORMALS: normal to inspection, capillary refill normal, no clubbing, cyanosis or edema, no calf tenderness and no pedal edema Neuro: SENSORIUM/ORIENTATION: Yes oriented to person, Yes oriented to place and Yes oriented to time Skin: COMMON NORMALS: no rashes or lesions noted GENERAL SKIN EXAM: no rashes or lesions noted Course 2 Vital Signs: Vital signs: Vital Signs Temperature 98 F 04/11/23 09:48 Pulse Rate 91 04/11/23 11:27 Respiratory Rate 18 04/11/23 11:27 Blood Pressure 149/83 04/11/23 10:03 Pulse Oximetry 98 04/11/23 11:27 Oxygen Delivery Me thod Room Air 04/11/23 11:27 MDM - Nausea/Vomiting/Diarrhea Medical Decision Making Labs and imaging reviewed discussed CT with Dr. Rock no acute findings previous graft looks stable. Patient does not have AAA. At this time with Protonix 40 mg daily promethazine use as needed if symptoms persist follow-up with primary care may need EGD return if has any worsening symptoms. Medical Records I reviewed the patient's medical records. Lab Data I reviewed the patient's lab results. 04/11/23 09:52 04/11/23 09:52 Laboratory Results WBC 9.78 10^3/uL (3.29-11.43) 04/11/23 09:52 RBC 4.30 10^6/uL (3.85-5.65) 04/11/23 09:52 Hgb 12.50 g/dL (11.27-16.99) 04/11/23 09:52 Hct 39.9 % (37-53) 04/11/23 09:52 MCV 92.8 fl (82-101) 04/11/23 09:52 MCH 29.1 pg (27-33) 04/11/23 09:52 MCHC 31.3 g/dL (30-55) 04/11/23 09:52 RDW 15.9 % (12.1-15.1) H 04/11/23 09:52 Plt Count 287 10^3/cmm (157-399) 04/11/23 09:52 MPV 7.8 fL (7.4-10.4) 04/11/23 09:52 Neut % (Auto) 57.9 % 04/11/23 09:52 Lymph % (Auto) 28.2 % 04/11/23 09:52 [place] % (Auto) 9.4 % 04/11/23 09:52 Eos % (Auto) 3.4 % 04/11/23 09:52 Baso % (Auto) 0.8 % 04/11/23 09:52 Neut # (Auto) 5.66 10^3/uL (1.8-7.7) 04/11/23 09:52 Lymph # (Auto) 2.8 10^3/uL (0.8-4.8) 04/11/23 09:52 [place] # (Auto) 0.9 10^3/uL (0.2-0.9) 04/11/23 09:52 Eos # (Auto) 0.3 10^3/uL (0.0-0.8) 04/11/23 09:52 Baso # (Auto) 0.1 10^3/uL (0.0-0.1) 04/11/23 09:52 Nucleated RBC % (auto) 0 % 04/11/23 09:52 Nucleated RBCs # 0.0 /100WBC 04/11/23 09:52 Sodium 134 mmol/L (136-145) L 04/11/23 09:52 Potassium 5.0 mmol/L (3.5-5.1) 04/11/23 09:52 Chloride 101 mmol/L (98-107) 04/11/23 09:52 Carbon Dioxide 24 mmol/L (22-29) 04/11/23 09:52 Anion Gap 14.0 (5-19) 04/11/23 09:52 BUN 8 mg/dL (8-23) 04/11/23 09:52 Creatinine 3.0 mg/dL (0.7-1.2) H 04/11/23 09:52 GFR Calculation Not Reportable 04/11/23 09:52 Glucose 115 mg/dL (65-115) 04/11/23 09:52 Calculated Osmolality 277 mOsm/kg (285-295) L 04/11/23 09:52 Calcium 10.4 mg/dL (8.5-10.5) 04/11/23 09:52 Total Bilirubin 0.6 mg/dL (0.15-1.2) 04/11/23 09:52 AST 18 U/L (0-40) 04/11/23 09:52 ALT 16 U/L (0-41) 04/11/23 09:52 Alkaline Phosphatase 271 U/L (40-130) H 04/11/23 09:52 Total Protein 6.7 g/dL (6.6-8.7) 04/11/23 09:52 Albumin 3.1 g/dL (3.5-5.2) L 04/11/23 09:52 Globulin 3.6 g/dL (1.3-4.6) 04/11/23 09:52 Lipase 28 U/L (13-60) 04/11/23 09:52 Urine Color Yellow (Yellow) 04/11/23 10:10 Urine Appearance Clear (CLEAR) 04/11/23 10:10 Urine pH 6 (5-7) 04/11/23 10:10 Ur Specific [place] 1.020 (1.005-1.030) 04/11/23 10:10 Urine Protein 3+ (Negative) H 04/11/23 10:10 Urine Glucose (UA) Norm (Normal) 04/11/23 10:10 Urine Ketones Negative (Negative) 04/11/23 10:10 Urine Blood 2+ (Negative) H 04/11/23 10:10 Urine Nitrate Negative (Negative) 04/11/23 10:10 Urine Bilirubin Neg (Negative) 04/11/23 10:10 Urine Urobilinogen Norm mg/dL (Negative) 04/11/23 10:10 Ur Leukocyte Esterase Negative (Negative) 04/11/23 10:10 Urine RBC None /hpf (0-2) 04/11/23 10:10 Urine WBC None /hpf (0-5) 04/11/23 10:10 Ur Squamous Epith Cells 0-4 /hpf (0-5) H 04/11/23 10:10 Amorphous Sediment Trace /hpf 04/11/23 10:10 Urine Bacteria Trace /hpf (NONE) 04/11/23 10:10 Hyaline Casts 15-25 /lpf H 04/11/23 10:10 Fine Granular Casts 0-4 /lpf H 04/11/23 10:10 Urine Mucus Trace /hpf 04/11/23 10:10 All radiology interpretation(s) finalized by discharge Discharge Plan Discharge Patient Disposition: Home Clinical Impression: Nausea & vomiting Condition: Stable Prescriptions: New promethazine 25 mg tablet 25 mg PO Q6H PRN (Reason: nausea and vomiting) Qty: 20 0RF Protonix 40 mg tablet,delayed release (DR/EC) 40 mg PO DAILY Qty: 30 0RF No Action (DME) [id number] See Rx Instructions .Route .MEDSUPPLY Qty: 1 0RF Rx Instructions: As directed potassium chloride 20 mEq tablet,ER particles/crystals 80 meq PO BEDTIME Patient Comments: Dr. Jes neely 03/10/21 (DME) Wheelchair See Rx Instructions .Route .MEDSUPPLY Qty: 1 0RF Rx Instructions: As directed (DME) blood-glucose meter [OneTouch Ultra2 Meter] Kit See Rx Instructions .Route Qty: 1 0RF Rx Instructions: As directed (DME) lancets [OneTouch Delica Lancets] 33 gauge misc See Rx Instructions .Route Qty: 100 5RF Rx Instructions: one day (DME) [place] Knee Brace See Rx Instructions .Route .MEDSUPPLY Qty: 1 0RF Rx Instructions: As directed Praluent Pen 75 mg/mL pen injector 75 mg SUBCUT Q14D Qty: 2 5RF Rx Instructions: inject into abdomen, thigh, or upper arm (deltoid muscle); rotate sites atorvastatin 80 mg tablet 80 mg PO DAILY Qty: 90 0RF (DME) OneTouch Ultra Test Strip See Rx Instructions .Route Qty: 50 5RF Rx Instructions: one daily levalbuterol tartrate 45 mcg/actuation HFA aerosol inhaler 2 inh inhalation Q6H PRN (Reason: shortness of breath or wheezing) Qty: 15 2RF Rybelsus 3 mg tablet 3 mg PO DAILY 30 Days Qty: 30 2RF tramadol 50 mg tablet 50 mg PO Q6H PRN (Reason: pain) Qty: 120 2RF magnesium L-lactate [Magtab] 84 mg tablet extended release 84 mg PO BID Qty: 60 5RF bumetanide 2 mg tablet 2 mg PO BID PRN (Reason: swelling) Qty: 100 0RF metoprolol tartrate 50 mg tablet 50 mg PO BID Qty: 180 3RF Hold Instructions: Low heart rate Trelegy Ellipta 100-62.5-25 mcg blister with device 1 inh INHALATION DAILY metolazone 5 mg tablet 5 mg PO DAILY cyclosporine modified 50 mg capsule 150 mg PO BID tamsulosin [Flomax] 0.4 mg capsule 0.4 mg PO BID levothyroxine 150 mcg tablet 150 mcg PO QAM cholecalciferol (vitamin D3) 1,250 mcg (50,000 unit) capsule 50,000 unit PO Q7D naloxone [Narcan] 4 mg/actuation spray,non-aerosol 1 spray intranasal Q3M PRN (Reason: overdose) Rx Instructions: spray 1 dose into ONE nostril; alternate nostrils w each dose until help arrives Discharge Orders: Discharge ED (Routine); Ordered 04/11/23 Ordered By: Codey Martinez Referrals: Carlos Brito, NAIL ASSEMBLY MACHINE OPERATOR-C [Primary Care Provider] - Discharge Diet: Usual diet Discharge Activity: Increase activity as tolerated Patient Instructions: Opioid Safety, Pain Management Activity Restrictions/Additional Instructions: Thank you for choosing [facility] for your healthcare needs today. Please realize this is an emergency room and that we are providing you with a medical screening exam and this may not be complete and all inclusive of all the testing and or work up that you may need to determine your ailment or severity of your illness. It is very important that you follow up as instructed or that you return to the Emergency Department should you have concerns or if your condition changes or worsens in any way. Start Protonix once daily use promethazine as needed follow-up with your doctor if not improving Coding Level of Care Code ED Firewall Administrator for Dylan Aguilar
[2023-04-11 10:34] LABS: Add Urine Culture? No; Amorphous Sediment Urine TRACE /hpf; Bacteria Urine TRACE /hpf; Fine Granular Casts Urine 0-4 /lpf; Hyaline Casts Urine 15-25 /lpf; Mucus Urine TRACE /hpf; Squamous Epithelial Cell Urine 0-4 /hpf (0-5)
--- NOTE | 2023-04-11 11:00 | CT_ITS ---
WS: [id number] CT ABDOMEN PELVIS TECHNIQUE: Noncontrast CT of the abdomen and pelvis with coronal and sagittal reformatted images. CLINICAL INFORMATION: Abdominal pain COMPARISON: 12/16/2021 and 09/10/2021 DLP: 932.[address] scans at [facility] use at least one of these dose optimization techniques: automated e xposure control; mA and/or kV adjustment per patient size (includes targeted exams where dose is matc hed to clinical indication); or iterative reconstruction. FINDINGS: Prior aortic endograft with biiliac extension. This is unchanged in appearance compared to 12/16/2021. Stable excluded aneurysm sac. 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 This is stable compared to previous. Stable distal abdominal aortic p seudoaneurysm. Small amount of increased attenuation within the graft likely due to developing intima l calcification. Noncontrast liver is normal. Normal noncontrast gallbladder and spleen. Small esophageal hiatal herni a. Interstitial thickening in the lung bases. No evidence of small or large bowel obstruction. Adrena l glands are normal. Atrophic kidneys bilaterally with perinephric edema can be seen with renal insuf ficiency. No hydronephrosis. No obstructing renal or ureteral calculi. Sigmoid diverticuli. No evidence of acute diverticulitis. Moderate spondylitic changes lumbar spine. IMPRESSION: 1. Stable aortic endograft with biiliac extension. Excluded aneurysm sac and distal pseudoaneurysm i s stable to slightly smaller compared to previous. 2. Small esophageal hiatal hernia. 3. No evidence of small or large bowel obstruction. 4. Sigmoid diverticulosis. 5. 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 6. No other suspicious findings.
[2023-04-11 11:27] VITALS: PULSE 91; RESP 18; O2SAT 98
[2023-04-11 13:47] VITALS: BP 138/76; PULSE 84; RESP 18; O2SAT 97
== END 2023-04-11 13:48 | disposition home or self-care (01) ==
PROVIDERS: Emergency Provider Family Medicine; PCP Nurse Practitioner
DX: R11.2 Nausea with vomiting, unspecified (principal); Z87.891 Personal history of nicotine dependence; E78.2 Mixed hyperlipidemia; I12.9 Hypertensive chronic kidney disease with stage 1 through stage 4 chronic kidney disease, or unspecified chronic kidney disease; E11.22 Type 2 diabetes mellitus with diabetic chronic kidney disease; N18.9 Chronic kidney disease, unspecified; J44.9 Chronic obstructive pulmonary disease, unspecified
CPT/HCPCS: 71045; 74176; 80053; 81001; 83690; 85025; 96361; 96374; 99285; J2405; J7030

== ENCOUNTER → 2023-04-19 10:43 | Outpatient (BNVA) | payer MEDICARE, MEDICAID, SELFPAY | PROVIDERS: PCP Nurse Practitioner; Visit Provider Registered Nurse | DX: Z79.899 Other long term (current) drug therapy (principal); N18.9 Chronic kidney disease, unspecified; J44.9 Chronic obstructive pulmonary disease, unspecified | CPT/HCPCS: 80158; 82570; 84156 ==

== ENCOUNTER → 2023-06-07 10:02 | Outpatient (BNVA) | payer MEDICARE, MEDICAID, SELFPAY | PROVIDERS: PCP Nurse Practitioner; Visit Provider Internal Medicine Nephrology | DX: N18.9 Chronic kidney disease, unspecified (principal); E03.9 Hypothyroidism, unspecified; E78.2 Mixed hyperlipidemia; E11.65 Type 2 diabetes mellitus with hyperglycemia; Z79.899 Other long term (current) drug therapy | CPT/HCPCS: 80053; 80061; 80069; 82570; 83036; 84156; 84443; 85025 ==

== ENCOUNTER 2023-06-27 08:36 | Oncology outpatient (recurring) (ONCR) | payer MEDICARE, MEDICAID, SELFPAY ==
[2023-06-27] VITALS (9 sets, daily range): BP systolic 100–115; BP diastolic 61–76; PULSE 62–67; RESP 16–18; TEMP 36.7–37.1; O2SAT 92–93
[2023-06-27] MEDS: acetaminophen 325 mg Tablet 975 MG PO (09:13)
[2023-06-27] MEDS: diphenhydrAMINE 25 mg Capsule PO (09:14)
[2023-06-27] MEDS: methylPREDNISolone sod succ 125 mg/2 mL INJ IVP (09:30)
[2023-06-27] MEDS: sodium chloride 0.9% 250 ML 75 ML IV (09:30)
[2023-06-27] MEDS: rituximab 1,000 MG in sodium chloride 0.9% 500 ML 25 MG IV (09:57)
== END 2023-06-27 23:59 | disposition home or self-care (01) ==
PROVIDERS: PCP Nurse Practitioner; Visit Provider Internal Medicine Nephrology
DX: N18.4 Chronic kidney disease, stage 4 (severe) (principal)
CPT/HCPCS: 96375; 96413; 96415; J2930; J7040; J7050; J9312

== ENCOUNTER 2023-07-10 08:30 | Oncology outpatient (recurring) (ONCR) | payer MEDICARE, MEDICAID, SELFPAY ==
[2023-07-10 08:56] VITALS: BP 91/58; PULSE 75; RESP 18; TEMP 35.6; O2SAT 92
[2023-07-10] MEDS: acetaminophen 325 mg Tablet 975 MG PO (09:11)
[2023-07-10] MEDS: sodium chloride 0.9% 250 ML 75 ML IV (09:11)
[2023-07-10] MEDS: methylPREDNISolone sod succ 125 mg/2 mL INJ IVP (09:11)
[2023-07-10] MEDS: diphenhydrAMINE 25 mg Capsule PO (09:11)
[2023-07-10 09:48] VITALS: BP 94/61; PULSE 72; RESP 18; TEMP 36.8; O2SAT 96
[2023-07-10] MEDS: rituximab 1,000 MG in sodium chloride 0.9% 500 ML 60 MG IV (09:48)
[2023-07-10 10:20] VITALS: BP 88/57; PULSE 72; RESP 18; TEMP 36.6; O2SAT 95
[2023-07-10 10:50] VITALS: BP 91/60; PULSE 69; RESP 17; TEMP 36.4; O2SAT 94
[2023-07-10 11:20] VITALS: BP 96/60; PULSE 71; RESP 17; TEMP 36.5; O2SAT 95
[2023-07-10 13:25] VITALS: BP 98/58; PULSE 70; RESP 17; TEMP 36.8; O2SAT 98
== END 2023-07-10 23:59 | disposition home or self-care (01) ==
LOC: ONCMED 08:30
PROVIDERS: PCP Nurse Practitioner; Visit Provider Internal Medicine Nephrology
DX: N18.4 Chronic kidney disease, stage 4 (severe) (principal); N04.1 Nephrotic syndrome with focal and segmental glomerular lesions
CPT/HCPCS: 96375; 96413; 96415; J2930; J7040; J7050; J9312

== ENCOUNTER 2023-07-24 12:03 | Observation (INO) | payer MEDICARE, MEDICAID, SELFPAY ==
[2023-07-24] VITALS (7 sets, daily range): BP systolic 92–115; BP diastolic 56–71; PULSE 66–77; RESP 12–18; TEMP 36.3–36.8; O2SAT 91–98
--- NOTE | 2023-07-24 12:13 | XR_ITS ---
WS: [id number] Examination: XR chest 1V portable [id number] Reason for Exam: weakness Date: July 24, 2023 Comparison: April 11, 2023 Findings: The heart is not grossly enlarged on this AP portable film. The mediastinum not widened. The lungs are hyperinflated with chronic change. Midlung scarring is again noted. There is no pleural effusion. Severe chronic changes of the shoulders are noted particularly on the left. IMPRESSION: The lungs are hyperinflated with continued chronic change. Scarring is identified bilaterally.
--- NOTE | 2023-07-24 12:14 | ECG_ITS ---
[facility] Test Date: 2023-07-24 Pat Name: Matthew Chong Department: Room: Gender: Male Senior Physician: : 1945 Requested By: Quiana Barros Order Number: [id number] Surya MD: Joyce Canas M.D. Measurements Intervals [place] Rate: 60 P: 0 NH: 0 QRS: -51 QRSD: 141 T: 18 QT: 464 QTc: 464 Interpretive Statements Possible sinus rhythm with supraventricular ectopic RIGHT BUNDLE BRANCH BLOCK [120+ ms QRS DURATION, UPRIGHT V1, 40+ ms S IN I/aVL/V4/V5/V6] LEFT ANTERIOR FASCICULAR BLOCK [QRS AXIS <= -45, QR IN I, RS IN II] MODERATE VOLTAGE CRITERIA FOR LVH, CONSIDER NORMAL VARIANT [MEETS CRITERIA IN ONE OF: R(aVL), S(V1), R(V5), R(V5/V6)+S(V1)] Compared to ECG 03/28/2023 11:18:15 Heavy baseline artifact, need to repeat Electronically Signed On 07-24-2023 16:30:22 CDT by Joyce Canas M.D. [id number]
--- NOTE | 2023-07-24 12:36 | ED_ITS ---
HPI - General Adult 2 General: Chief complaint: General Medical Stated complaint: generalized weakness Time Seen by Provider: 07/24/23 12:09 Source: patient and EMS Mode of arrival: EMS Limitations: no limitations History of Present Illness: 77-year-old male states that he is seen in his clinic today just for blood draw he states he has had some weakness he said he is felt very weak upon standing patient was hypotensive in the clinic in the 70s and ambulance was called he did get 500 mL of fluid his blood pressure now is 91/59. He has a history of CHF he states he did have a fall 3 weeks ago did hit his abdomen has bruising has had pain there. He denies any chest pain denies any fever. He is on metoprolol daily. Associated symptoms: Deny chest pain, dyspnea, headache(s), nausea, rash or vomiting Review of Systems 2 Const: Reports: fatigue; Denies: fever(s), chills, body aches or change in appetite Eyes: Denies: blurry vision or eye discomfort ENMT: Denies: throat pain or dental pain Card: Denies: chest pain Resp: Denies: dyspnea GI: Denies: abdominal pain, nausea, vomiting or diarrhea Musc: Denies: neck pain or back pain Skin/Breast: Denies: rash Neuro: Denies: headache(s) PFSH ED 2 PFSH: Medical History Diabetes mellitus with hyperglycemia, without long-term current use of insulin Arteriosclerotic heart disease (ASHD) Obstruction of right ureter Enlarged prostate Neutrophilic leukocytosis Hypokalemia due to excessive renal loss of potassium History of severe acute respiratory syndrome coronavirus 2 (SARS-CoV-2) disease Extrinsic ureteral obstruction Hydronephrosis, right Vitamin D deficiency Hypertension Personal history of nicotine dependence Mixed hyperlipidemia DJD (degenerative joint disease) AAA (abdominal aortic aneurysm) CKD (chronic kidney disease) COPD (chronic obstructive pulmonary disease) Adult hypothyroidism Surgical History History of endovascular stent graft for abdominal aortic aneurysm (AAA) July 2017 History of appendectomy History of cataract surgery Both eyes History of colonoscopy 2012 Family History Mother , AT AGE 71 Stroke Clotting disorder Grandmother Stroke Father , AT AGE 76 Hypertension Stroke Clotting disorder Other CAD (coronary artery disease) Dementia Diabetes Lung disease Denies family history of Psychiatric illness Chronic kidney disease (CKD) Suicide Anesthesia complication Bleeding disorder Cancer Social History Smoking and tobacco/nicotine status: former use of tobacco/nicotine Quit status (tobacco/nicotine): has quit using Year quit tobacco: 2020 Former quit date comment: [id number] Second hand smoke exposure: Yes Alcohol intake: never Substance/Drug Use: never Adopted: No Caregiver/support person: No Lives independently: Yes Household members: spouse and none Housing: Other Marital status: / service: Yes branch: [employer] Current occupational status: retired Current occupational exposures/hazards: No Do you think of yourself as: Straight/Heterosexual Current gender identity: Male Physical Exam 2 Const: COMMON NORMALS: patient oriented x3 HENMT: COMMON NORMALS: normocephalic and atraumatic HEAD & SCALP: n ormocephalic and atraumatic Eye: COMMON NORMALS: Equal, round and reactive pupils present and EOMs intact bilaterally PUPIL: Yes Equal, round and reactive pupils present Neck/C-Spine: COMMON NORMALS: full ROM and supple Chest: COMMONS NORMALS: normal inspection of the chest and normal palpation of entire chest wall Resp: COMMON NORMALS: normal respiratory effort, No retractions, No use of accessory muscles and clear to auscultation bilaterally AUSCULTATION: clear to auscultation bilaterally Cardio: COMMON NORMALS: regular rate, regular rhythm and No murmurs present (Cardio) RATE: regular rate RHYTHM: regular rhythm GI: COMMON NORMALS: Soft to palpation and no masses PALPATION: Yes Soft to palpation OTHER: Old bruising noted to abdomen with some slight tenderness Extremity: COMMON NORMALS: normal to inspection and full ROM Neuro: COMMON NORMALS: patient oriented x3, moves all extremities and no focal motor deficits Psych: COMMON NORMALS: mental status grossly normal, Normal thought process present and cooperative THOUGHT PROCESS: Normal thought process present Skin: COMMON NORMALS: no rashes or lesions noted and no wounds GENERAL SKIN EXAM: no rashes or lesions noted Course 2 Vital Signs: Vital signs: Vital Signs Temperature 97.9 F 07/24/23 12:14 Pulse Rate 69 07/24/23 12:14 Respiratory Rate 12 07/24/23 12:14 Blood Pressure 92/59 07/24/23 12:14 Pulse Oximetry 96 07/24/23 12:14 Oxygen Delivery Me thod Room Air 07/24/23 12:14 MDM - General Adult Medical Decision Making Patient presents here with weakness likely from dehydration causing his hypotension he has acute on chronic kidney injury likely from his dehydration as well. Spoke to the hospitalist will admit at this time. Medical Records I reviewed the patient's medical records. Lab Data I reviewed the patient's lab results. 07/24/23 12:52 07/24/23 12:52 Laboratory Results WBC 10.18 10^3/uL (3.29-11.43) 07/24/23 12:52 RBC 3.54 10^6/uL (3.85-5.65) L 07/24/23 12:52 Hgb 10.80 g/dL (11.27-16.99) L 07/24/23 12:52 Hct 31.9 % (37-53) L 07/24/23 12:52 MCV 90.1 fl (82-101) 07/24/23 12:52 MCH 30.5 pg (27-33) 07/24/23 12:52 MCHC 33.9 g/dL (30-55) 07/24/23 12:52 RDW 16.8 % (12.1-15.1) H 07/24/23 12:52 Plt Count 279 10^3/cmm (157-399) 07/24/23 12:52 MPV 8.0 fL (7.4-10.4) 07/24/23 12:52 Neut % (Auto) 65.5 % 07/24/23 12:52 Lymph % (Auto) 22.9 % 07/24/23 12:52 [place] % (Auto) 10.1 % 07/24/23 12:52 Eos % (Auto) 0.7 % 07/24/23 12:52 Baso % (Auto) 0.5 % 07/24/23 12:52 Neut # (Auto) 6.67 10^3/uL (1.8-7.7) 07/24/23 12:52 Lymph # (Auto) 2.3 10^3/uL (0.8-4.8) 07/24/23 12:52 [place] # (Auto) 1.0 10^3/uL (0.2-0.9) H 07/24/23 12:52 Eos # (Auto) 0.1 10^3/uL (0.0-0.8) 07/24/23 12:52 Baso # (Auto) 0.1 10^3/uL (0.0-0.1) 07/24/23 12:52 Nucleated RBC % (auto) 0 % 07/24/23 12:52 Nucleated RBCs # 0.0 /100WBC 07/24/23 12:52 Sodium 135 mmol/L (136-145) L 07/24/23 12:52 Potassium 2.7 mmol/L (3.5-5.1) L* 07/24/23 12:52 Chloride 87 mmol/L (98-107) L 07/24/23 12:52 Carbon Dioxide 33 mmol/L (22-29) H 07/24/23 12:52 Anion Gap 17.7 (5-19) 07/24/23 12:52 BUN 41 mg/dL (8-23) H 07/24/23 12:52 Creatinine 3.9 mg/dL (0.7-1.2) H 07/24/23 12:52 GFR Calculation Not Reportable 07/24/23 12:52 Glucose 109 mg/dL (65-115) 07/24/23 12:52 Calculated Osmolality 291 mOsm/kg (285-295) 07/24/23 12:52 Lactic Acid 3.8 mmol/L (0.5-2.2) H 07/24/23 12:52 Calcium 9.6 mg/dL (8.5-10.5) 07/24/23 12:52 Total Bilirubin 0.6 mg/dL (0.15-1.2) 07/24/23 12:52 AST 12 U/L (0-40) 07/24/23 12:52 ALT 6 U/L (0-41) 07/24/23 12:52 Alkaline Phosphatase 212 U/L (40-130) H 07/24/23 12:52 NT-Pro-B Natriuret Pep 905 pg/mL (0-450) H 07/24/23 12:52 Total Protein 7.3 g/dL (6.6-8.7) 07/24/23 12:52 Albumin 3.1 g/dL (3.5-5.2) L 07/24/23 12:52 Globulin 4.2 g/dL (1.3-4.6) 07/24/23 12:52 All radiology interpretation(s) finalized by discharge Discharge Plan Discharge Patient Disposition: Admitted As Inpatient Clinical Impression: Hypotension, Weakness, Acute kidney injury superimposed on chronic kidney disease Condition: Stable Coding Level of Care Code ED Tile Sorter for Dylan Aguilar
[2023-07-24] MEDS: sodium chloride 0.9% 1,000 ML 999 ML IV (12:49)
[2023-07-24 13:08] LABS: Basophils # 0.1 10^3/uL (0.0-0.1); Basophils % 0.5 %; Eosinophils # 0.1 10^3/uL (0.0-0.8); Eosinophils % 0.7 %; Hematocrit 31.9 % (37-53); Lymphocytes # 2.3 10^3/uL (0.8-4.8); Lymphocytes % 22.9 %; Mean Corpuscular HGB Conc 33.9 g/dL (30-55); Mean Corpuscular Hemoglobin 30.5 pg (27-33); Mean Corpuscular Volume 90.1 fl (82-101); Monocytes % 10.1 %; Neutrophils # 6.67 10^3/uL (1.8-7.7); Neutrophils % 65.5 %; Nucleated Red Blood Cells % 0 %; Platelet Count 279 10^3/cmm (157-399); Red Blood Count 3.54 10^6/uL (3.85-5.65); Red Cell Distribution Width 16.8 % (12.1-15.1); White Blood Count 10.18 10^3/uL (3.29-11.43)
[2023-07-24 13:25] LABS: Lactic Sepsis W/Reflex 3.8 mmol/L (0.5-2.2)
--- NOTE | 2023-07-24 13:26 | PC.PHAR ---
Addendum entered by Keyona Brown 07/24/23 13:43: PRANAY MEZA FROM [facility] [phone] STATES THE PT TAKES THE MEDICATIONS ENTERED-STATES THE PT IS STILL TAKING CARAFATE 10ML BID EXT SHOWS LAST FILLED 05/30/23 30D/S PT STATES HASNT TAKEN PRALUENT 75MG Q14 DAYS IN A MONTH EXT SHOWS LAST FILLED 07/03/23 28D/S Addendum entered by Keyona Brown 07/24/23 13:31: pt is with [facility] in home health care [phone] from [facility] she will get ahradha of [facility] nurse and call with the pts med list Addendum entered by Keyona Brown 07/24/23 13:27: jaz from [employer] in [facility] pt was with them till mar 2023 and now on different company Original Note: pt states he has a in home health nurse-pt uses [employer] in home service [phone] from [facility] in [facility] will fax med list-
[2023-07-24 13:36] LABS: Alanine Aminotransferase 6 U/L (0-41); Albumin Level 3.1 g/dL (3.5-5.2); Alkaline Phosphatase 212 U/L (40-130); Anion Gap 17.7 (5-19); Aspartate Amino Transferase 12 U/L (0-40); Blood Urea Nitrogen 41 mg/dL (8-23); Calcium 9.6 mg/dL (8.5-10.5); Carbon Dioxide 33 mmol/L (22-29); Chloride 87 mmol/L (98-107); Creatinine Clr Calc Pharmacy 17.2498; Globulin 4.2 g/dL (1.3-4.6); Glucose 109 mg/dL (65-115); NT Pro B Type Natriuretic Pept 905 pg/mL (0-450); Osmolality Calculated 291 mOsm/kg (285-295); Sodium 135 mmol/L (136-145); Total Bilirubin 0.6 mg/dL (0.15-1.2); Total Protein 7.3 g/dL (6.6-8.7)
[2023-07-24 13:37] LABS: Potassium 2.7 mmol/L (3.5-5.1)
[2023-07-24] MEDS: potassium chloride ER 20 mEq Tablet 40 MEQ PO (14:48)
[2023-07-24 14:53] LABS: Reflex Lactate Order REFLEX LACTIC ORDERD
--- NOTE | 2023-07-24 16:11 | PC.NURSE ---
attempted report, nurse unavailable
[2023-07-24 16:29] LABS: Magnesium 2.6 mg/dL (1.7-2.3)
--- NOTE | 2023-07-24 17:16 | P.HP_ITS ---
Providers/Chief Complaint 2 Admitting Physician: Quirino Leiva DO Primary Care Provider: ADAN Newton Chief Complaint: generalized weakness History of Present Illness Matthew Chong is a 77 year old male with a history of CHF and chronic renal failure who tells me he has not been feeling well for a few weeks up to a month. He states that he has weakness he is tired all the time and all he does is sleep. He lives alone. He admits to not eating well. He reports no appetite that sometimes he is getting sick with food he particularly states that he gets choked on his potassium pills and has not been able to take them. Patient has been taking his diuretics Bumex 2 mg twice daily regularly scheduled and metolazone 5 mg daily. Patient came in to his primary care office for blood work he told him he was not feeling well they checked his blood pressure his systolic was in the 70s and they sent him to the emergency room. He was quickly resuscitated with fluids. Workup was overall negative except for slight elevation of lactic acid and acute on chronic renal failure. He will be admitted overnight for observation and fluid resuscitation Review of Systems 2 Const: Denies: fever(s) or chills Eyes: Denies: change in vision ENMT: Denies: throat pain or nasal congestion Card: Denies: chest pain or palpitations Resp: Denies: dyspnea or productive cough GI: Reports: nausea and vomiting; Denies: abdominal pain or change in stool character : Denies: difficulty urinating or dysuria Musc: Denies: back pain or extremity pain Skin/Breast: Denies: rash or lesions Neuro: Denies: headache(s) or dizziness Psych: Denies: anxiety or depression Gary/Lymph: Denies: easy bruising or easy bleeding Medications/Allergies Home Medications Medication Instructions Recorded Confirmed Last Taken Type Knlw-[id number] #1 ea 02/18/21 07/24/23 Unknown Rx Wheelchair #1 ea 08/05/21 07/24/23 Unknown Rx blood-glucose meter (OneTouch #1 ea 07/14/22 07/24/23 Unknown Rx Ultra2 Meter kit) lancets 33 gauge (OneTouch Delica #100 ea 07/14/22 07/24/23 Unknown Rx Lancets) Diony Knee Brace #1 ea 08/31/22 07/24/23 Unknown Rx potassium chloride 20 mEq 80 meq PO BEDTIME 10/10/22 07/24/23 04/10/23 History tablet,extended release(part/cryst) alirocumab 75 mg/mL subcutaneous 75 mg SUBCUT Q14D #2 mL 03/07/23 07/24/23 1 Month Ago Rx pen injector (Praluent Pen) ~06/23/23 blood sugar diagnostic (OneTouch #50 ea 03/07/23 07/24/23 Unknown Rx Ultra Test strips) metolazone 5 mg tablet 5 mg PO DAILY 03/28/23 07/24/23 04/11/23 History naloxone 4 mg/actuation nasal 1 spray intranasal Q3M PRN overdose 03/28/23 07/24/23 Unknown History spray (Narcan) metoprolol tartrate 50 mg tablet 50 mg PO BID #180 tabs 04/11/23 07/24/23 Unknown Rx glipizide 2.5 mg tablet, extended 2.5 mg PO DAILY #30 tabs 05/30/23 07/24/23 Unknown Rx release 24 hr sucralfate 100 mg/mL oral 10 ml PO BID #600 mL 05/30/23 07/24/23 Unknown Rx suspension (Carafate) levothyroxine 150 mcg tablet 150 mcg PO QAM #30 tabs 06/01/23 07/24/23 Unknown Rx tamsulosin 0.4 mg capsule (Flomax) 0.4 mg PO BID #60 caps 06/01/23 07/24/23 Unknown Rx tramadol 50 mg tablet 50 mg PO Q6H PRN pain #120 tabs 06/01/23 07/24/23 Unknown Rx atorvastatin 80 mg tablet 80 mg PO DAILY #90 tabs 06/02/23 07/24/23 Unknown Rx cholecalciferol (vitamin D3) 1,250 50,000 unit PO Q7D #4 caps 06/02/23 07/24/23 Unknown Rx mcg (50,000 unit) capsule levalbuterol tartrate 45 2 inh inhalation Q6H PRN shortness 06/02/23 07/24/23 Unknown Rx mcg/actuation aerosol inhaler of breath or wheezing #15 grams bumetanide 2 mg tablet 2 mg PO BID PRN swelling #100 tabs 07/14/23 07/24/23 Unknown Rx fluticasone fur. 100 mcg-umeclid 1 inh inhalation DAILY #60 ea 07/14/23 07/24/23 Unknown Rx 62.5 mcg-vilant 25 mcg inhalat.powder (Trelegy Ellipta) aspirin 81 mg tablet,delayed 81 mg PO QAM 07/24/23 07/24/23 07/24/23 History release lidocaine 5 % topical patch See Rx Instructions .Route .COMPLEX 07/24/23 07/24/23 Unknown History magnesium oxide 400 mg PO QAM 07/24/23 07/24/23 Unknown History Allergies Allergy/AdvReac Type Severity Reaction Status Date / Time No Known Allergies Allergy Verified 05/30/23 09:16 PFSH Acute 2 PFSH: Medical History Diabetes mellitus with hyperglycemia, without long-term current use of insulin Arteriosclerotic heart disease (ASHD) Obstruction of right ureter Enlarged prostate Neutrophilic leukocytosis Hypokalemia due to excessive renal loss of potassium History of severe acute respiratory syndrome coronavirus 2 (SARS-CoV-2) disease Extrinsic ureteral obstruction Hydronephrosis, right Vitamin D deficiency Hypertension Personal history of nicotine dependence Mixed hyperlipidemia DJD (degenerative joint disease) AAA (abdominal aortic aneurysm) CKD (chronic kidney disease) COPD (chronic obstructive pulmonary disease) Adult hypothyroidism Surgical History History of endovascular stent graft for abdominal aortic aneurysm (AAA) July 2017 History of appendectomy History of cataract surgery Both eyes History of colonoscopy 2012 Family History Mother , AT AGE 71 Stroke Clotting disorder Grandmother Stroke Father , AT AGE 76 Hypertension Stroke Clotting disorder Other CAD (coronary artery disease) Dementia Diabetes Lung disease Denies family history of Psychiatric illness Chronic kidney disease (CKD) Suicide Anesthesia complication Bleeding disorder Cancer Social History Smoking and tobacco/nicotine status: former use of tobacco/nicotine Quit status (tobacco/nicotine): has quit using Year quit tobacco: 2020 Former quit date comment: [id number] Second hand smoke exposure: Yes Alcohol intake: never Substance/Drug Use: never Adopted: No Caregiver/support person: No Lives independently: Yes Household members: spouse and none Housing: Other Marital status: / service: Yes branch: [employer] Current occupational status: retired Current occupational exposures/hazards: No Do you think of yourself as: Straight/Heterosexual Current gender identity: Male Vitals/I&O/Wt Last Vital Signs Temp 97.3 F L 07/24/23 16:51 Pulse 66 07/24/23 16:51 Resp 18 07/24/23 16:51 BP 115/71 07/24/23 16:51 Pulse Ox 92 07/24/23 16:51 O2 Del Method Room Air 07/24/23 16:51 07/24/23 07/24/23 07/24/23 06:59 14:59 22:59 Intake Total 1000 / 1000 Balance 1000 / 1000 Weight last 48 hrs Weight 96.162 kg Physical Exam 2 Narrative: General: No acute distress. Appears well-nourished HEENT head: AT/NC, PERRLA/EOMI: Mucous membranes moist and pink without lesions or exudates neck is supple no JVD carotid bruits or lymphadenopathy Chest: Rises symmetrically with inspiration Respiratory: Normal breath sounds good aeration no wheezes rales or rhonchi Heart is regular rate and rhythm normal S1-S2 there is a soft systolic murmur heard best at the left lower sternal border 2-3/6 Abdomen: Obese soft nontender nondistended positive bowel sounds Extremities: No pitting edema in the lower extremities however patient does appear overall edematous Back no CVA tenderness : Normal male Neuro: Alert and oriented to person place time and situation exam is nonfocal motor and sensory Psych: Mood and affect are appropriate for condition Skin: No lesions or rashes noted Data 07/24/23 12:52 07/24/23 12:52 Micro: Microbiology 07/24/23 14:05 Blood Culture - Preliminary Blood SPECIMEN COLLECTED 07/24/23 14:02 Blood Culture - Preliminary Blood SPECIMEN COLLECTED A&P Assessment and plan (1) Hypotension: Most likely induced by overdiuresis. Diuretics will be stopped Gentle hydration Plan to readjust diuretics, CHF teaching, home health care with PT OT and nursing Qualifiers: Hypotension type: hypotension due to drug Qualified Code(s): I95.2 - Hypotension due to drugs (2) Acute kidney injury superimposed on chronic kidney disease: Most likely due to overdiuresis see above (3) Weakness: Most likely due to hypokalemia and possible hypo-Magnesemia (4) Diabetes mellitus with hyperglycemia, without long-term current use of insulin: Continue home meds Qualifiers: Diabetes mellitus type: type 2 Qualified Code(s): E11.65 - Type 2 diabetes mellitus with hyperglycemia (5) Hypokalemia: Patient was given 40 mill equivalents in the emergency room will give another 40 now and 40 once a day. Will adjust as diuretics are reinitiated Plan Patient is admitted for observation and fluid with gentle fluid hydration and follow-up labs. Attestations 2 Medical Necessity Statement*: Patient will most likely not need 2 midnight stay for the treatment of his condition Coding Level of Care Code Acute Code for [facility] Diagnoses Hypotension due to drugs I95.2 Hypotension type: hypotension due to drug Acute kidney injury superimposed on chronic kidney disease N17.9; N18.9 Weakness R53.1 Type 2 diabetes mellitus with hyperglycemia, without long-term current use of insulin E11.65 Diabetes mellitus type: type 2 Hypokalemia E87.6
[2023-07-24] MEDS: tamsulosin 0.4 mg Capsule 0.400000000000000022 MG PO (17:39)
[2023-07-24] MEDS: sodium chlor 0.9% + KCl 20 mEq 20 MEQ/1,000 ML BAG 100 MEQ IV (17:39)
[2023-07-24] MEDS: TRAMadol 50 mg Tablet PO (17:40)
[2023-07-24 18:11] LABS: Lactic Acid level (Lactate) 2.6 mmol/L (0.5-2.2)
[2023-07-24 19:06] LABS: Glucose Urine UA Norm (Normal); Ketones Urine Negative (Negative); Protein Urine 3+ (Negative); Specific Gravity, Urine 1.015 (1.005-1.030); Urine Appearance Clear (CLEAR); Urine Color Yellow (Yellow); pH Urine 6 (5-7)
[2023-07-24 19:07] LABS: Add Urine Culture? No; Add Urine Microscopic? YES; Bacteria Urine 1+ /hpf; Bilirubin Urine Neg (Negative); Blood Urine 2+ (Negative); Hyaline Casts Urine 40-55 /lpf; Leukocyte Esterase Urine Negative (Negative); Mucus Urine TRACE /hpf; Nitrate Urine Negative (Negative); RBC Urine 0-4 /hpf (0-2); Urobilinogen Urine Norm (Negative)
[2023-07-24] MEDS: budesonide 0.5 mg/2 mL Neb INHALATION (20:43)
[2023-07-24] MEDS: ipratropium-albuterol 3 mL Neb INHALATION (20:43)
[2023-07-25] VITALS (11 sets, daily range): BP systolic 114–134; BP diastolic 57–67; PULSE 71–92; RESP 16–19; TEMP 36.3–37; O2SAT 91–95; BMI 34.2
[2023-07-25] MEDS: sodium chlor 0.9% + KCl 20 mEq 20 MEQ/1,000 ML BAG 100 MEQ IV ×3 (03:53→23:02)
[2023-07-25 05:04] LABS: Anion Gap 13.7 (5-19); Blood Urea Nitrogen 40 mg/dL (8-23); Calcium 8.2 mg/dL (8.5-10.5); Carbon Dioxide 30 mmol/L (22-29); Chloride 95 mmol/L (98-107); Creatinine Clr Calc Pharmacy 21.3551; Glucose 86 mg/dL (65-115); Lactic Sepsis W/Reflex 1.5 mmol/L (0.5-2.2); Magnesium 2.3 mg/dL (1.7-2.3); Osmolality Calculated 291 mOsm/kg (285-295); Sodium 136 mmol/L (136-145)
[2023-07-25] MEDS: aspirin 81 mg EC Tablet PO (05:15)
[2023-07-25] MEDS: magnesium oxide 400 mg tablet PO (05:15)
[2023-07-25] MEDS: levothyroxine 150 mcg Tablet PO (05:15)
[2023-07-25 05:16] LABS: Potassium 2.7 mmol/L (3.5-5.1)
[2023-07-25] MEDS: potassium chloride ER 20 mEq Tablet 40 MEQ PO (06:13)
[2023-07-25] MEDS: budesonide 0.5 mg/2 mL Neb INHALATION ×2 (08:35→19:49)
[2023-07-25] MEDS: ipratropium-albuterol 3 mL Neb INHALATION ×4 (08:35→19:49)
--- NOTE | 2023-07-25 09:49 | PC.CHAP ---
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 [] Patient/Family/Request visit [] Outpatient visit [] Follow-up visit [] Physician referral [] Code/Alert [x] Routine visit [] Staff referral [] Actively dying [] Patient sleeping [] Family support [] [] Out of room [] Palliative care [] [] Receiving care in room [] Pre-surgical visit [] Trauma [] Long length of stay [] ICU visit [] Other: Relational/Emotional Strength [x] Patient feels connected with others/family/visitors/staff [] Distress [] Loneliness/isolation [] Abandonment Spirituality of Patient [x] Person of Meera [x] Attends Judaism of their Meera [x Believes in Prayer [x] Reads Bible or Amish materials [] There are Spiritual issues to be addressed General Service Technician Interventions [x] Prayer [x] Active listening [] Non-anxious presence [x] Spiritual/emotional support [] Crisis/trauma care [] Spiritual counseling [] Bereavement support [] Provided bereavement packet [] Provided Bible/devotional materials [] Provided toy/stuffed animal, coloring book to patient or family member [] Provided Communion [] Anointing/[place] [] Salvation [] Completed spiritual assessment [] Other: Impact on Illness or Injury [] Angry [] Fearful [] Anxious [] Often cries [] Exhaustion [] Unable to work [] Unable to attend adventism [] Unable to walk/stand [] Unable to read [] Unable to drive [] Unable to eat/drink [] Unable to sleep [] Unable to be with family [] Patient intubated [] Other: Summary Time spent with patient 5 min
[2023-07-25] MEDS: lidocaine 1% 5 ML in potassium chloride premix 100 ML 26.25 ML IV ×2 (11:16→15:30)
[2023-07-25] MEDS: atorvastatin 40 mg Tablet PO (11:16)
[2023-07-25] MEDS: tamsulosin 0.4 mg Capsule 0.400000000000000022 MG PO ×2 (11:16→17:41)
[2023-07-25 14:40] LABS: Blood Urea Nitrogen 36 mg/dL (8-23); Calcium 8.7 mg/dL (8.5-10.5); Carbon Dioxide 28 mmol/L (22-29); Chloride 97 mmol/L (98-107); Glucose 112 mg/dL (65-115); Osmolality Calculated 289 mOsm/kg (285-295); Sodium 135 mmol/L (136-145)
--- NOTE | 2023-07-25 14:40 | P.PN_ITS ---
Subjective 2 Subjective: Patient feeling much better. Though, he has not gotten out of bed. Vitals/I&O/Wt Last Vital Signs Temp 97.5 F L 07/25/23 12:06 Pulse 82 07/25/23 12:22 Resp 18 07/25/23 12:22 BP 130/66 07/25/23 12:06 Pulse Ox 91 07/25/23 12:22 O2 Del Method Room Air 07/25/23 12:22 07/24/23 07/25/23 07/25/23 22:59 06:59 14:59 Intake Total 720 / 1720 1480 / 3200 1875 / 1875 Output Total 200 / 200 300 / 500 300 / 300 Balance 520 / 1520 1180 / 2700 1575 / 1575 Weight last 48 hrs Weight 99.246 kg Weight 96.162 kg Physical Exam 2 Narrative: General: No acute distress. Appears well-nourished Respiratory: Normal breath sounds good aeration no wheezes rales or rhonchi Heart is regular rate and rhythm normal S1-S2 there is a soft systolic murmur heard best at the left lower sternal border 2-06/27 Abdomen: Obese soft nontender nondistended positive bowel sounds Extremities: No pitting edema in the lower extremities however patient does appear overall edematous Skin: Abdominal wall bruising that is in the healing status with yellow/green discoloration in the epigastric area. This is very superficial. Data 07/24/23 12:52 07/25/23 04:25 Micro: Microbiology 07/24/23 14:05 Blood Culture - Preliminary Blood NEGATIVE TO DATE 07/24/23 14:02 Blood Culture - Preliminary Blood NEGATIVE TO DATE A&P Assessment and plan (1) Hypotension: Most likely induced by overdiuresis. Diuretics remain on hold Continue gentle hydration Plan to readjust diuretics, CHF teaching, home health care with PT OT and nursing Qualifiers: Hypotension type: hypotension due to drug Qualified Code(s): I95.2 - Hypotension due to drugs (2) Acute kidney injury superimposed on chronic kidney disease: Most likely due to overdiuresis see above (3) Weakness: Most likely due to hypokalemia and possible hypo-Magnesemia (4) Diabetes mellitus with hyperglycemia, without long-term current use of insulin: Continue home meds In family meeting with 2 sons present and daughter on the phone we discussed the fact that the patient is diagnosed with diabetes mellitus and takes oral medications. Will check when last hemoglobin A1c was done and if not in the last 3 months will reassess Qualifiers: Diabetes mellitus type: type 2 Qualified Code(s): E11.65 - Type 2 diabetes mellitus with hyperglycemia (5) Hypokalemia: After 80 mill equivalents of KCl yesterday the potassium remains at 2.5. At time of this dictation patient had KCl 40 mill equivalents this morning and a K rider. At 2 PM BMP was drawn and awaiting results. Plan Patient will need second midnight for potassium replacement and reevaluation. Will change to full admit Attestations 2 Medical Necessity Statement*: Patient will need second midnight for potassium replacement and reevaluation. Will change to full admit Coding Level of Care Code Acute Code for g [facility] Diagnoses Hypotension due to drugs I95.2 Hypotension type: hypotension due to drug Acute kidney injury superimposed on chronic kidney disease N17.9; N18.9 Weakness R53.1 Type 2 diabetes mellitus with hyperglycemia, without long-term current use of insulin E11.65 Diabetes mellitus type: type 2 Hypokalemia E87.6
[2023-07-25 14:47] LABS: Anion Gap 13.1 (5-19); Creatinine Clr Calc Pharmacy 22.7788; Potassium 3.1 mmol/L (3.5-5.1)
[2023-07-26 04:05] VITALS: BP 123/64; PULSE 93; RESP 16; TEMP 36.9; O2SAT 92
[2023-07-26] MEDS: magnesium oxide 400 mg tablet PO (05:03)
[2023-07-26] MEDS: aspirin 81 mg EC Tablet PO (05:03)
[2023-07-26] MEDS: levothyroxine 150 mcg Tablet PO (05:03)
[2023-07-26 05:48] LABS: Anion Gap 12.6 (5-19); Blood Urea Nitrogen 29 mg/dL (8-23); Calcium 8.6 mg/dL (8.5-10.5); Carbon Dioxide 26 mmol/L (22-29); Chloride 101 mmol/L (98-107); Creatinine Clr Calc Pharmacy 27.3346; Glucose 104 mg/dL (65-115); Osmolality Calculated 288 mOsm/kg (285-295); Potassium 3.6 mmol/L (3.5-5.1); Sodium 136 mmol/L (136-145)
[2023-07-26 08:00] VITALS: BP 104/56; PULSE 80; PULSE 92; RESP 16; TEMP 36.7; O2SAT 94; O2SAT 95
[2023-07-26] MEDS: atorvastatin 40 mg Tablet PO (08:19)
[2023-07-26] MEDS: tamsulosin 0.4 mg Capsule 0.400000000000000022 MG PO (08:19)
[2023-07-26] MEDS: sodium chlor 0.9% + KCl 20 mEq 20 MEQ/1,000 ML BAG 100 MEQ IV (08:19)
[2023-07-26] MEDS: potassium chloride ER 20 mEq Tablet 40 MEQ PO (08:19)
[2023-07-26] MEDS: ipratropium-albuterol 3 mL Neb INHALATION (08:51)
[2023-07-26] MEDS: budesonide 0.5 mg/2 mL Neb INHALATION (08:51)
--- NOTE | 2023-07-26 09:40 | PM.DCS ---
Discharge Providers Date of Admission: 07/24/23 16:00 Date of Discharge: July 26, 2023 Attending Provider at Admission: Quirino Leiva DO Attending Provider at Discharge: Quirino Leiva DO Primary Care Provider: ADAN Newton Diagnoses at Discharge Discharge Diagnosis (1) Hypotension: Status: Acute Qualifiers: Hypotension type: hypotension due to drug Qualified Code(s): I95.2 - Hypotension due to drugs (2) Acute kidney injury superimposed on chronic kidney disease: Status: Acute (3) Weakness: Status: Acute (4) Diabetes mellitus with hyperglycemia, without long-term current use of insulin: Status: Chronic Qualifiers: Diabetes mellitus type: type 2 Qualified Code(s): E11.65 - Type 2 diabetes mellitus with hyperglycemia (5) Hypokalemia: Status: Acute Reason for Visit Reason for Visit: generalized weakness Hospital Course Hospital Course Matthew Chong is a 77 year old male with a history of CHF and chronic renal failure who tells me he has not been feeling well for a few weeks up to a month. He states that he has weakness, he is tired all the time and all he does is sleep. He lives alone. He admits to not eating well. He reports no appetite and that sometimes he is getting sick with food. He particularly states that he gets choked on his potassium pills and has not been able to take them. Patient has been taking his diuretics Bumex 2 mg twice daily regularly scheduled and metolazone 5 mg daily. Patient came in to his primary care office for blood work. He told him he was not feeling well and they checked his blood pressure; which was systolic 70s and they sent him to the emergency room. He was quickly resuscitated with fluids. Workup was positive for slight elevation of lactic acid and acute on chronic renal failure and severe hypokalemia. He was given fluid resuscitation. His antihypertensives were held as well as well as his diuretics. The patient's blood pressure quickly responded to fluid resuscitation. However his potassium remained low at 2.7 the following day. He was given multiple IV boluses as well as oral medication to supplement. With the patient living alone and not being very mobile at home PT and OT was consulted. They recommended home health care and the patient is agreeable. On the day of discharge his potassium has increased to 3.6 blood pressure remained stable. He will be discharged today on less diuretics with the discontinuation of Zaroxolyn and decreasing metoprolol to lowest dose. He will be counseled to check his blood pressures at home and he can hold metoprolol if the blood pressure is less than 110 systolic. He will need a follow-up BMP in approximately 1 week. Physical Exam Narrative: General: No acute distress. Appears well-nourished and well-hydrated Respiratory: Normal breath sounds good aeration no wheezes rales or rhonchi Heart is regular rate and rhythm normal S1-S2 there is a soft systolic murmur heard best at the left lower sternal border 2-06/27 Abdomen: Obese soft nontender nondistended positive bowel sounds Extremities: No pitting edema in the lower extremities his legs have not become edematous with the fluids. Skin: Abdominal wall bruising that is in the healing status with yellow/green discoloration in the epigastric area. This is very superficial. Discharge Data Studies Completed and Pending Completed Studies During Hospitalization Category Date Time Status XR chest 1V portable [id number] Stat Exams 07/24/23 12:13 Completed Pending at discharge Category Date Time Status Basic Metabolic Panel AM LABS Lab 07/26/23 14:00 Ordered Blood Culture Stat Lab 07/24/23 14:05 Results Laboratory Results WBC 10.18 10^3/uL (3.29-11.43) 07/24/23 12:52 RBC 3.54 10^6/uL (3.85-5.65) L 07/24/23 12:52 Hgb 10.80 g/dL (11.27-16.99) L 07/24/23 12:52 Hct 31.9 % (37-53) L 07/24/23 12:52 MCV 90.1 fl (82-101) 07/24/23 12:52 MCH 30.5 pg (27-33) 07/24/23 12:52 MCHC 33.9 g/dL (30-55) 07/24/23 12:52 RDW 16.8 % (12.1-15.1) H 07/24/23 12:52 Plt Count 279 10^3/cmm (157-399) 07/24/23 12:52 MPV 8.0 fL (7.4-10.4) 07/24/23 12:52 Neut % (Auto) 65.5 % 07/24/23 12:52 Lymph % (Auto) 22.9 % 07/24/23 12:52 Eddy % (Auto) 10.1 % 07/24/23 12:52 Eos % (Auto) 0.7 % 07/24/23 12:52 Baso % (Auto) 0.5 % 07/24/23 12:52 Neut # (Auto) 6.67 10^3/uL (1.8-7.7) 07/24/23 12:52 Lymph # (Auto) 2.3 10^3/uL (0.8-4.8) 07/24/23 12:52 Eddy # (Auto) 1.0 10^3/uL (0.2-0.9) H 07/24/23 12:52 Eos # (Auto) 0.1 10^3/uL (0.0-0.8) 07/24/23 12:52 Baso # (Auto) 0.1 10^3/uL (0.0-0.1) 07/24/23 12:52 Nucleated RBC % (auto) 0 % 07/24/23 12:52 Nucleated RBCs # 0.0 /100WBC 07/24/23 12:52 Sodium 136 mmol/L (136-145) 07/26/23 05:21 Potassium 3.6 mmol/L (3.5-5.1) 07/26/23 05:21 Chloride 101 mmol/L (98-107) 07/26/23 05:21 Carbon Dioxide 26 mmol/L (22-29) 07/26/23 05:21 Anion Gap 12.6 (5-19) 07/26/23 05:21 BUN 29 mg/dL (8-23) H 07/26/23 05:21 Creatinine 2.5 mg/dL (0.7-1.2) H 07/26/23 05:21 GFR Calculation Not Reportable 07/26/23 05:21 Glucose 104 mg/dL (65-115) 07/26/23 05:21 Calculated Osmolality 288 mOsm/kg (285-295) 07/26/23 05:21 Lactic Acid 1.5 mmol/L (0.5-2.2) 07/25/23 04:25 Lactic Acid (Sepsis) 2.6 mmol/L (0.5-2.2) H 07/24/23 17:17 Calcium 8.6 mg/dL (8.5-10.5) 07/26/23 05:21 Magnesium 2.3 mg/dL (1.7-2.3) 07/25/23 04:25 Total Bilirubin 0.6 mg/dL (0.15-1.2) 07/24/23 12:52 AST 12 U/L (0-40) 07/24/23 12:52 ALT 6 U/L (0-41) 07/24/23 12:52 Alkaline Phosphatase 212 U/L (40-130) H 07/24/23 12:52 NT-Pro-B Natriuret Pep 905 pg/mL (0-450) H 07/24/23 12:52 Total Protein 7.3 g/dL (6.6-8.7) 07/24/23 12:52 Albumin 3.1 g/dL (3.5-5.2) L 07/24/23 12:52 Globulin 4.2 g/dL (1.3-4.6) 07/24/23 12:52 Urine Color Yellow (Yellow) 07/24/23 18:42 Urine Appearance Clear (CLEAR) 07/24/23 18:42 Urine pH 6 (5-7) 07/24/23 18:42 Ur Specific [place] 1.015 (1.005-1.030) 07/24/23 18:42 Urine Protein 3+ (Negative) H 07/24/23 18:42 Urine Glucose (UA) Norm (Normal) 07/24/23 18:42 Urine Ketones Negative (Negative) 07/24/23 18:42 Urine Blood 2+ (Negative) H 07/24/23 18:42 Urine Nitrate Negative (Negative) 07/24/23 18:42 Urine Bilirubin Neg (Negative) 07/24/23 18:42 Urine Urobilinogen Norm mg/dL (Negative) 07/24/23 18:42 Ur Leukocyte Esterase Negative (Negative) 07/24/23 18:42 Urine RBC 0-4 /hpf (0-2) H 07/24/23 18:42 Urine WBC 5-10 /hpf (0-5) H 07/24/23 18:42 Ur Squamous Epith Cells None /hpf (0-5) 07/24/23 18:42 Amorphous Sediment Not Reportable 07/24/23 18:42 Urine Bacteria 1+ /hpf (NONE) H 07/24/23 18:42 Hyaline Casts 40-55 /lpf H 07/24/23 18:42 Urine Mucus Trace /hpf 07/24/23 18:42 Vitals Last Vital Signs Temp 98.1 F 07/26/23 08:00 Pulse 80 07/26/23 08:00 Resp 16 07/26/23 08:00 BP 104/56 07/26/23 08:00 Pulse Ox 95 07/26/23 08:00 O2 Del Method Room Air 07/26/23 08:00 Discharge Plan Discharge Patient Disposition: Home Health Service Condition: Stable Prescriptions: New tamsulosin [Flomax] 0.4 mg capsule 0.8 mg PO .qhs Qty: 60 0RF Continued (DME) Qslj-n-[id number] See Rx Instructions .Route .MEDSUPPLY Qty: 1 0RF Rx Instructions: As directed (DME) Wheelchair See Rx Instructions .Route .MEDSUPPLY Qty: 1 0RF Rx Instructions: As directed (DME) blood-glucose meter [OneTouch Ultra2 Meter] Kit See Rx Instructions .Route Qty: 1 0RF Rx Instructions: As directed (DME) lancets [OneTouch Delica Lancets] 33 gauge misc See Rx Instructions .Route Qty: 100 5RF Rx Instructions: one day (DME) Diony Knee Brace See Rx Instructions .Route .MEDSUPPLY Qty: 1 0RF Rx Instructions: As directed Praluent Pen 75 mg/mL pen injector 75 mg SUBCUT Q14D Qty: 2 5RF Rx Instructions: inject into abdomen, thigh, or upper arm (deltoid muscle); rotate sites (DME) OneTouch Ultra Test Strip See Rx Instructions .Route Qty: 50 5RF Rx Instructions: one daily glipizide 2.5 mg tablet extended release 24hr 2.5 mg PO DAILY Qty: 30 2RF sucralfate [Carafate] 100 mg/mL suspension 10 ml PO BID Qty: 600 0RF Rx Instructions: swish in mouth and swallow; use after food/drink levothyroxine 150 mcg tablet 150 mcg PO QAM Qty: 30 2RF tramadol 50 mg tablet 50 mg PO Q6H PRN (Reason: pain) Qty: 120 2RF atorvastatin 80 mg tablet 80 mg PO DAILY Qty: 90 0RF cholecalciferol (vitamin D3) 1,250 mcg (50,000 unit) capsule 50,000 unit PO Q7D Qty: 4 2RF Rx Instructions: on monday levalbuterol tartrate 45 mcg/actuation HFA aerosol inhaler 2 inh inhalation Q6H PRN (Reason: shortness of breath or wheezing) Qty: 15 2RF Trelegy Ellipta 100-62.5-25 mcg blister with device 1 inh INHALATION DAILY Qty: 60 2RF bumetanide 2 mg tablet 2 mg PO BID PRN (Reason: swelling) Qty: 100 0RF Aspir-81 81 mg Tablet,Delayed Release (Dr/Ec) 81 mg PO QAM lidocaine 5 % adhesive patch,medicated See Rx Instructions .ROUTE .COMPLEX Rx Instructions: APPLY ONE PATCH DAILY LEAVE ON MOST PAINFUL AREA FOR UP TO 12 HOURS AND OFF 12 HOURS NEEDED magnesium oxide 400 mg magnesium Tablet 400 mg PO QAM naloxone [Narcan] 4 mg/actuation spray,non-aerosol 1 spray intranasal Q3M PRN (Reason: overdose) Rx Instructions: spray 1 dose into ONE nostril; alternate nostrils w each dose until help arrives Changed potassium chloride 20 mEq tablet,ER particles/crystals 40 meq PO BID Qty: 60 0RF Patient Comments: Dr. Jes neely 03/10/21 Rx Instructions: 40 mEq orally twice daily with meals metoprolol tartrate 50 mg tablet 12.5 mg PO BID Qty: 180 3RF Discontinued tamsulosin [Flomax] 0.4 mg capsule 0.4 mg PO BID Qty: 60 2RF metolazone 5 mg tablet 5 mg PO DAILY Discharge Orders: Discharge Order (Routine); Ordered 07/26/23 Ordered By: Quirino Leiva Other Ambulatory Orders: Basic Metabolic Panel (Routine) Timeframe: 1 Week Facility: [facility] - Location: Lab - Main Lab Ordered By: Quirino Leiva Referrals: [facility] [Outside] Carlos Brito FNP-C [Primary Care Provider] - 08/01/23 11:00 am Discharge Diet: Usual diet Discharge Activity: Increase activity as tolerated Patient Instructions: Type 2 Diabetes, Heart Failure (DC), CHF Stoplight, Opioid Safety Activity Restrictions/Additional Instructions: Obtain blood pressure machine and check blood pressures 1 not feeling well. You may hold metoprolol if systolic blood pressure less than 110. Discharge Attestations Time Spent in Discharge Care*: greater than 30 min Quality Metrics Clinical Quality Measures [ No reported AMI, CVA or VTE this stay] Coding Level of Care Code Acute Code for Chg Fwd Diagnoses Hypotension due to drugs I95.2 Hypotension type: hypotension due to drug Acute kidney injury superimposed on chronic kidney disease N17.9; N18.9 Weakness R53.1 Type 2 diabetes mellitus with hyperglycemia, without long-term current use of insulin E11.65 Diabetes mellitus type: type 2 Hypokalemia E87.6
[2023-07-26 11:21] VITALS: BP 104/56; PULSE 80; RESP 16; TEMP 36.7; O2SAT 95
== END 2023-07-26 11:23 | disposition home health service (06) ==
LOC: ER 14:27 → MEDSURG 16:15
PROVIDERS: Admitting Provider Internal Medicine; Emergency Provider Emergency Medicine; PCP Nurse Practitioner; Visit Provider Internal Medicine
DX: I95.2 Hypotension due to drugs (principal); N17.9 Acute kidney failure, unspecified; E11.22 Type 2 diabetes mellitus with diabetic chronic kidney disease; I13.0 Hypertensive heart and chronic kidney disease with heart failure and stage 1 through stage 4 chronic kidney disease, or unspecified chronic kidney disease; N18.9 Chronic kidney disease, unspecified; R53.1 Weakness; E11.65 Type 2 diabetes mellitus with hyperglycemia; E87.6 Hypokalemia; I50.9 Heart failure, unspecified; M19.90 Unspecified osteoarthritis, unspecified site; J44.9 Chronic obstructive pulmonary disease, unspecified; E03.9 Hypothyroidism, unspecified; Z87.891 Personal history of nicotine dependence; E78.2 Mixed hyperlipidemia
CPT/HCPCS: 36415; 71045; 80048; 80053; 81001; 83605; 83735; 83880; 85025; 87040; 93005; 94640; 96365; 96366; 97116; 97161; 97165; 97530; 99285; G0378; J3480; J7030; J7626

== ENCOUNTER → 2023-08-01 11:42 | Outpatient (BNVA) | payer MEDICARE, MEDICAID, SELFPAY | PROVIDERS: PCP Nurse Practitioner; Visit Provider Nurse Practitioner | DX: E55.9 Vitamin D deficiency, unspecified (principal); N18.9 Chronic kidney disease, unspecified; R63.4 Abnormal weight loss; R41.3 Other amnesia | CPT/HCPCS: 80048; 82306; 85025 ==

== ENCOUNTER → 2023-08-24 12:01 | Outpatient (BNVA) | payer MEDICARE, MEDICAID, SELFPAY | PROVIDERS: PCP Nurse Practitioner; Visit Provider Nurse Practitioner | DX: Z78.9 Other specified health status (principal); I10 Essential (primary) hypertension; J44.9 Chronic obstructive pulmonary disease, unspecified; E78.2 Mixed hyperlipidemia; E11.65 Type 2 diabetes mellitus with hyperglycemia; E55.9 Vitamin D deficiency, unspecified; I25.10 Atherosclerotic heart disease of native coronary artery without angina pectoris; M16.11 Unilateral primary osteoarthritis, right hip; E11.9 Type 2 diabetes mellitus without complications | CPT/HCPCS: 83036 ==

== ENCOUNTER 2023-09-12 14:37 | Oncology outpatient (recurring) (ONCR) | payer MEDICARE, MEDICAID, SELFPAY ==
--- NOTE | 2023-09-12 15:00 | CT_ITS ---
WS: [id number] CT chest wo con [id number] HISTORY: J44.9 - Chronic obstructive pulmonary disease, unspecified TECHNIQUE: Axial imaging performed through the thorax. Coronal and sagittal reformats are submitted. All CT scans at [facility] use at least one of these dose optimization techniques: automated exposure control; mA and/or kV adjustment per patient size (includes targeted exams where dose is mat ched to clinical indication); or iterative reconstruction. CONTRAST: None DLP: 465.28 mGy.cm COMPARISON: 10/17/2022 Lungs and central airway: Severe emphysema. Numerous bullous and bleb formations in the upper lobes. Mild pleural thickening towards the LEFT apex. The areas of scarring and fibrosis are similar to prio r studies. No mass. Pleura: Normal. No pleural effusion. Heart and pericardium: Mild cardiomegaly. Coronary artery calcifications. Mediastinum and jumana: No mediastinum or hilar adenopathy. Vessels: Moderate atherosclerosis aorta. Normal size pulmonary artery. Chest wall and lower neck: Gynecomastia. Upper abdomen: Negative. Osseous structures: Mild degenerative curvature thoracic spine. CT/CT chest wo con [id number] IMPRESSION: 1. Advanced emphysema with biapical pleural thickening and scarring. 2. No mass identified. No pneumonia. 3. Atherosclerosis aorta.
== END 2023-09-22 23:59 | disposition home or self-care (01) ==
PROVIDERS: PCP Nurse Practitioner; Visit Provider Internal Medicine Nephrology
DX: J44.9 Chronic obstructive pulmonary disease, unspecified (principal); R63.4 Abnormal weight loss; J43.9 Emphysema, unspecified; I70.0 Atherosclerosis of aorta
CPT/HCPCS: 71250

== ENCOUNTER → 2023-11-28 10:36 | Outpatient (BNVA) | payer MEDICARE, MEDICAID, SELFPAY | PROVIDERS: PCP Nurse Practitioner; Visit Provider Nurse Practitioner | DX: N18.9 Chronic kidney disease, unspecified (principal); E11.65 Type 2 diabetes mellitus with hyperglycemia; E55.9 Vitamin D deficiency, unspecified; E03.9 Hypothyroidism, unspecified | CPT/HCPCS: 80053; 82043; 82306; 82607; 83036; 84443; 85025 ==

== ENCOUNTER → 2023-11-30 12:18 | Outpatient (BNVA) | payer MEDICARE, MEDICAID, SELFPAY | PROVIDERS: PCP Nurse Practitioner; Visit Provider Internal Medicine Critical Care Medicine | DX: R06.09 Other forms of dyspnea (principal); J44.9 Chronic obstructive pulmonary disease, unspecified; I50.32 Chronic diastolic (congestive) heart failure; N04.1 Nephrotic syndrome with focal and segmental glomerular lesions; N18.9 Chronic kidney disease, unspecified; E87.1 Hypo-osmolality and hyponatremia; R13.12 Dysphagia, oropharyngeal phase; R53.81 Other malaise; J44.89 Other specified chronic obstructive pulmonary disease; Z71.9 Counseling, unspecified | CPT/HCPCS: 99214 ==

== ENCOUNTER → 2023-12-21 10:45 | Outpatient (BNVA) | payer MEDICARE, MEDICAID, SELFPAY | PROVIDERS: PCP Nurse Practitioner; Visit Provider Nurse Practitioner | DX: N18.9 Chronic kidney disease, unspecified (principal) | CPT/HCPCS: 82043 ==

== ENCOUNTER → 2024-04-01 10:26 | Outpatient (BNVA) | payer MEDICARE, MEDICAID, SELFPAY | PROVIDERS: PCP Nurse Practitioner; Visit Provider Nurse Practitioner | DX: E55.9 Vitamin D deficiency, unspecified (principal); E11.65 Type 2 diabetes mellitus with hyperglycemia; E03.9 Hypothyroidism, unspecified; N18.9 Chronic kidney disease, unspecified; E78.2 Mixed hyperlipidemia | CPT/HCPCS: 80048; 80061; 80069; 82043; 82306; 82310; 83036; 83970; 84443; 85025 ==

== ENCOUNTER → 2024-04-11 10:49 | Outpatient (BNVA) | payer MEDICARE, MEDICAID, SELFPAY | PROVIDERS: PCP Nurse Practitioner; Visit Provider Internal Medicine Cardiovascular Disease | DX: I25.10 Atherosclerotic heart disease of native coronary artery without angina pectoris (principal); I13.0 Hypertensive heart and chronic kidney disease with heart failure and stage 1 through stage 4 chronic kidney disease, or unspecified chronic kidney disease; E11.22 Type 2 diabetes mellitus with diabetic chronic kidney disease; N18.9 Chronic kidney disease, unspecified; I50.32 Chronic diastolic (congestive) heart failure; I48.0 Paroxysmal atrial fibrillation; Z98.890 Other specified postprocedural states; Z86.79 Personal history of other diseases of the circulatory system; E78.2 Mixed hyperlipidemia; F17.200 Nicotine dependence, unspecified, uncomplicated; E11.65 Type 2 diabetes mellitus with hyperglycemia | CPT/HCPCS: 99214 ==

== ENCOUNTER → 2024-06-24 09:52 | Outpatient (BNVA) | payer MEDICARE, MEDICAID, SELFPAY | PROVIDERS: PCP Nurse Practitioner; Visit Provider Nurse Practitioner | DX: E11.65 Type 2 diabetes mellitus with hyperglycemia (principal); E55.9 Vitamin D deficiency, unspecified; E03.9 Hypothyroidism, unspecified | CPT/HCPCS: 82306; 84439; 84443; 84481 ==

== ENCOUNTER → 2024-07-29 10:40 | Outpatient (BNVA) | payer MEDICARE, MEDICAID, SELFPAY | PROVIDERS: PCP Nurse Practitioner; Visit Provider Nurse Practitioner | DX: M19.012 Primary osteoarthritis, left shoulder (principal); R93.7 Abnormal findings on diagnostic imaging of other parts of musculoskeletal system | CPT/HCPCS: 73030; 80069; 82043; 82306; 82310; 83970; 85025 ==

== ENCOUNTER → 2024-10-15 09:54 | Outpatient (BNVA) | payer MEDICARE, MEDICAID, SELFPAY | PROVIDERS: PCP Nurse Practitioner; Visit Provider Nurse Practitioner Family | DX: I48.0 Paroxysmal atrial fibrillation (principal); R94.39 Abnormal result of other cardiovascular function study; I13.0 Hypertensive heart and chronic kidney disease with heart failure and stage 1 through stage 4 chronic kidney disease, or unspecified chronic kidney disease; N18.9 Chronic kidney disease, unspecified; I50.32 Chronic diastolic (congestive) heart failure; Z95.828 Presence of other vascular implants and grafts; E78.2 Mixed hyperlipidemia; F17.210 Nicotine dependence, cigarettes, uncomplicated | CPT/HCPCS: 99214 ==

== ENCOUNTER → 2024-12-02 10:02 | Outpatient (BNVA) | payer MEDICARE, MEDICAID, SELFPAY | PROVIDERS: PCP Nurse Practitioner; Visit Provider Nurse Practitioner | DX: N18.9 Chronic kidney disease, unspecified (principal); I10 Essential (primary) hypertension; E11.65 Type 2 diabetes mellitus with hyperglycemia; E55.9 Vitamin D deficiency, unspecified; E03.9 Hypothyroidism, unspecified | CPT/HCPCS: 80053; 80061; 80069; 82043; 82306; 82310; 83036; 83970; 84439; 84443; 84481; 85025 ==

== ENCOUNTER → 2025-01-22 10:41 | Outpatient (BNVA) | payer MEDICARE, MEDICAID, SELFPAY | PROVIDERS: PCP Nurse Practitioner; Visit Provider Specialist | DX: M19.011 Primary osteoarthritis, right shoulder (principal) | CPT/HCPCS: 20610; 73030; 99214; J1100; J2795; J3301; J9999 ==

== ENCOUNTER → 2025-02-05 10:54 | Outpatient (BNVA) | payer MEDICARE, MEDICAID, SELFPAY | PROVIDERS: PCP Nurse Practitioner; Visit Provider Specialist | DX: M19.012 Primary osteoarthritis, left shoulder (principal) | CPT/HCPCS: 20610; 73030; 99214; J1100; J2795; J3301; J9999 ==

== ENCOUNTER → 2025-04-02 10:08 | Outpatient (BNVA) | payer MEDICARE, MEDICAID, SELFPAY | PROVIDERS: PCP Nurse Practitioner; Visit Provider Nurse Practitioner | DX: E55.9 Vitamin D deficiency, unspecified (principal); N18.9 Chronic kidney disease, unspecified | CPT/HCPCS: 80069; 82043; 82306; 82310; 83970; 85025 ==